=== PATIENT | female | born 1935 | race Caucasian/White ===

== ENCOUNTER 2020-12-16 14:10 | Inpatient (IN) | payer OTHER ==
--- NOTE | 2020-12-17 15:34 | R.PREADM ---
PRE-ADMISSION SCREENING FORM SCREENING DATE AND TIME 12/17/2020 14:31 (CDT) ANTICIPATED REHAB ADMISSION DATE 12/19/2020 REFERRING FACILITY [facility] REFERRAL DATE AND TIME 12/16/2020 12:41 (CDT) REFERRAL ROOM# J558 ACUTE ADMIT DATE 12/12/2020 Previous Rehabilitation(s): No. ACUTE COSMETIC ACCOUNT COORDINATOR/DC BRIDGE WELDER Felicita REFERRING PHYSICIAN Dr Vasquez REHAB FACILITY [facility] CLINICAL LIAISON Jorge A Navarro PHYSICIAN REVIEWER Dr. Eloy Blandon M.D. MR# [id number] NAME JEN HICKEY ADDRESS [address] [place] [address] PHONE [facility] [address] DATE OF 1935 AGE 85 SSN# [id number] GENDER female MARITAL STATUS RACE white PREF. LANGUAGE (IF NON-SWISS) Albanian ADMIT FROM 02 - [facility] PRE-HOSPITAL LIVING SETTING 01 - Home (private home/apt. board/care, assisted living, alf, transitional living) HOME TYPE AND DETAILS Type of home: single family house # of levels in the residence: 1 # of steps to enter the residence: 0 # of steps within the residence: 0 PRE-HOSPITAL LIVING WITH Alone FAMILY SUPPORT Yes PRIMARY FAMILY CONTACT NAME Bisi Valentine PRIMARY FAMILY CONTACT ALT. PHONE PRIMARY FAMILY CONTACT RELATIONSHIP Daughter IS PRIMARY FAMILY CONTACT AUTH. REP.? no 1ST EMERGENCY CONTACT Bisi Valentine 1ST CONTACT ALT. PHONE 1ST CONTACT RELATIONSHIP Daughter IS 1ST CONTACT AUTH. REP.? no PHONE 2ND CONTACT ON ADM.? no PATIENT EMPLOYMENT STATUS Retired (for age) PATIENT EMPLOYER No Employer PAYOR INFORMATION: 1ST PAYOR NAME [employer] 1ST PAYOR PHONE 1ST PAYOR 2ND PAYOR AUTHORIZATION# Medicare # 2ND PAYOR INJURY/ILLNESS DUE TO ACCIDENT? Yes ANOTHER REPUBLICAN RESPONSIBLE? 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 SUMMARY OF ACUTE HOSPITALIZATION: Pt. is a 85 yo Right-handed white female. On 12/12/2020 Pt. presented to [facility] with sudden onset of right-side weakness. On 12/12/2020 she was admitted to [facility] with diagnosis Traumatic subarachnoid hemm. with loss of consciousness . Her impairment category is Stroke 01 - Right Body (Left Brain) (01.2). Pre-morbidly, Pt. was independent/mod-I in Transfers Control, Locomotion, Self-Care, Social Cognition , Sphincter Control, and Communication; and she had good Balance and Safety Awareness. Currently, she has deficits of Transfers Control, Balance, Locomotion, Safety Awareness, Self-Care, a nd Social Cognition. Pt. is now referred to [facility] for acute in-patient rehabilitation in order to maximize patient's functional independence in activities of daily living, strength, ROM, and mobi lity. Patient has realistic goal of being discharged at assistance level 6-Raudel to reside at Home with Gino ozuna. PAST MEDICAL HISTORY mild dementia HTN melanoma of left periorbital region Hyponatremia hypocalcemia MEDICATION ALLERGIES: No Known Drug Allergies (NKDA) ENVIRONMENTAL ALLERGIES: None Known - Substance Allergies None Known - Other Allergies None Known CODE STATUS: DNR/DNI WEIGHT/HEIGHT/BMI: WEIGHT 114 lbs HEIGHT 5' 0" BMI 22.3 DIET: - Diet Type Regular - Diet - Solid Texture Regular - Diet - Liquid Texture Regular - Tube Feed N/A SKIN DIAGRAM: Abrasion on Face; extent - small; stage - NS(Not Stageable). Treatment - Per Physician's Orders. REVIEW OF SYSTEMS: - Gen Alert and awake Lying in bed No apparent distress Oriented to: person, time, and place - Vital Signs Vital signs stable, afebrile - CVS RRR VITAL SIGNS Temperature: 98.8 F SBP/DBP: 157/67 Pulse: 18 Resp: 98 Vital signs stable, afebrile MEDICATIONS/TREATMENT: Other- See attached MAR (Medication Administration Record). CURRENT SPHINCTER CONTROL: # of bladder accidents in the last 7 days prior to screenin # of bowel accidents in the last 7 days prior to screenin CURRENT LOCOMOTION STATUS: distance walked 200 feet DETAILED CURRENT FUNCTIONAL STATUS: - Walking score based on distance walked: 3(>=150ft) QI SCORES: - Self-Care A. Eating 04-Supervision or touching assistance B. Oral hygiene 04-Supervision or touching assistance C. Toileting hygiene 03-Partial/moderate assistance E. Shower/bathe self 02-Substantial/maximal assistance F. Upper body dressing 02-Substantial/maximal assistance G. Lower body dressing 01-Dependent H. Putting on/taking off footwear 01-Dependent - Mobility A. Roll left and right 03-Partial/moderate assistance B. Sit to lying 03-Partial/moderate assistance C. Lying to sitting on side of bed 03-Partial/moderate assistance D. Sit to stand 03-Partial/moderate assistance E. Chair/udl-cd-vlnjp transfer 03-Partial/moderate assistance F. Toilet transfer 03-Partial/moderate assistance G. Car transfer 88-Not attempted due to medical condition or safety concerns I. Walk 10 feet 04-Supervision or touching assistance J. Walk 50 feet with two turns 04-Supervision or touching assistance K. Walk 150 feet 04-Supervision or touching assistance L. Walking 10 feet on uneven surfaces 88-Not attempted due to medical condition or safety concerns M. 1 step (curb) 88-Not attempted due to medical condition or safety concerns N. 4 steps 88-Not attempted due to medical condition or safety concerns O. 12 steps 88-Not attempted due to medical condition or safety concerns P. Picking up object 88-Not attempted due to medical condition or safety concerns - Endurance Poor - Balance Poor - Safety Awareness Poor CURRENT FUNC. DEFICITS: Self-Care, Mobility, Endurance, Balance, and Safety Awareness HISTORY OF FALLS. HAS THE PATIENT HAD TWO OR MORE FALLS IN THE PAST YEAR OR ANY FALL WITH INJURY IN T HE PAST YEAR?: Yes PRIOR SURGERY. DID THE PATIENT HAVE MAJOR SURGERY DURING THE 100 DAYS PRIOR TO ADMISSION?: Yes THERAPY NOTES FROM ACUTE CARE: Ann.pdf SPECIAL NEEDS: - Safety Concerns Skin breakdown precautions needed due to skin breakdown risk PRECAUTIONS: - Weight Bearing Precaution WBAT left LE PATIENT NEEDS ACTIVE AND ONGOING THERAPEUTIC INTERVENTION OF MULTIPLE THERAPY DISCIPLINES, INCLUDING: - Occupational Therapy Cognitive Retraining. Visual Perceptual Training. - Dietary and Nutrition Adequate Nutrition. Nutritional Education. Nutritional Supplements. - Speech Therapy Cognitive Training. Expressive Language Skills. Memory Strategies. Receptive Language Skills. Speech Intelligibility Training. PATIENT NEEDS CLOSE MEDICAL SUPERVISION BY A REHABILITATION PHYSICIAN FOR: Coordination of Treatment Team Wound Care PATIENT REQUIRES 24X7 REHAB NURSING FOR MEDICAL AND FUNCTIONAL MGT. OF THE FOLLOWING DEFICITS: Disease Management Medication Management Patient/Family Education Providing Safe Environment Skin Integrity PATIENT REQUIRES INTENSIVE, COORDINATED INTERDISCIPLINARY APPROACH TO REHAB: Arranging Home Equipment/Services Discharge Planning Family Intervention/Training Flask Fitter/Case Management PATIENT REHAB POTENTIAL: Kadie ELI is able and expected to receive 3 hours of individualized therapy daily on at least 5 of every 7 days Kadie Ga prognosis for significant practical improvement within a reasonable period of shelly e appears Good Expected level of measurable improvement will be of a practical value to Kadie TOs function al capacity or adaptations to impairments Has a viable Discharge Plan Medically appropriate; condition is sufficiently stable to participate in intensive rehab program DISCHARGE PLAN: - Estimated Length of Stay (days) 12. - Consensus on plan Discharge plan has been discussed with primary caregiver. Primary caregiver is in agreement with the plan. - Planned Living Setting Upon Discharge Primary caregiver: Daughter. RECOMMENDED CARE LEVEL: IRF RECOMMENDATION DETAILS: Recommended Admission to Comprehensive Rehabilitation Program to Increase Functional [place] SCREENER'S COMPLETENESS CONFIRMATION: - Screening Confirmation The patient data collection on this preadmission screening form is finished PHYSICIANS REVIEW AND ADMISSION DETERMINATION Admit - Based on my review of the Pre-Admission Screening results, in my medical judgment and experie nce, I concur with the findings and recommend admission to [facility], as this patient requires an IRF level of care. SIGNATURE PANEL: Body Masker - [electronically] signed by Cece Byers Hand Rug Braider on 12/17/2020 at 14:59 (CD T) Body Masker - [electronically] signed by Zach Navarro PT on 12/17/2020 at 15:05 (CDT) Physician Reviewer - [electronically] signed by Dr. Eloy Blandon M.D. on 12/17/2020 at 15:33 (CDT )
--- OUTSIDE RECORDS SUMMARY | 2020-12-17 18:03 | XMS REPORT | Continuity of Care Document ---
:1935 Author Organization [facility] t Address [address] [place] [address] Care Team Providers Name Role Phone TONO Primary Care Physician Unavailable SYSTEM, NOT IN Attending Clinician Unavailable Cristopher AGUILAR Attending Clinician CRISTOPHER Attending Clinician Unavailable Fiona AGUILAR Attending Clinician FIONA Attending Clinician Unavailable Damian STEVENS Attending Clinician DAMIAN Attending Clinician Unavailable Tono AGUILAR Attending Clinician TONO Attending Clinician Unavailable Dominique Laguna MD Attending Clinician Darrel Justin CRNA Attending Clinician Ciro AGUILAR Attending Clinician Jimmy Attending Clinician Unavailable Manoj Rouse, K Attending Clinician Unavailable Felipe AGUILAR Attending Clinician Herbie Gomez MA Attending Clinician Unavailable Tania AGUILAR, Q Attending Clinician Burak BRNACH Attending Clinician Unavailable Parisa Handley Attending Clinician Kathy VINCENT, G Attending Clinician Unavailable Brandi Larsen MD Attending Clinician Gregory Briggs MD Attending Clinician Ifeoma AGUILAR Attending Clinician Tu Deleon, M Attending Clinician TONO Admitting Clinician Unavailable Payers Payer Name Policy Type Policy Effective Date Expiration Date Sour ce Number [facility] [id number] 2020 MD Buenrostro rson MEDICARE 00:00:00 [facility] MEDICARE [id number] 2020-PresentMe dicare Problems Condition Condition Condition Status Onset Resolution Last Treating Co mments Source Name Details Category Date Date Treatment Clinician Date Malignant Malignant Disease Active Overview: melanoma melanoma 3-03 Added Hernan o of left of left 00:00: automatic n upper upper 00 ally from eyelid, eyelid, request including including for canthus canthus surgery [id number] Hyperlipid Hyperlipid Problem Active [facility] Dementia Dementia Problem Active [facility] Essential Essential Problem Active [facility] hypertensi Hypertensi da on on Medical Group Subarachno Subarachno Problem Active [facility] id id da hemorrhage Hemorrhage Me dical Group Upper Upper Problem Active [facility] respirator Respirator da y y Medical infection Infection Grou p Seasonal Seasonal Problem Active [facility] allergic Allergic da rhinitis Rhinitis Medica l Group Bronchitis Bronchitis Problem Active [facility] Gastroente Gastroente Problem Active [facility] r[facility] r[facility] Dizziness Dizziness Problem Active [facility] Fatigue Fatigue Problem Active [facility] Paresthesi Paresthesi Problem Active [facility] Diarrhea Diarrhea Problem Active [facility] Magnetic Magnetic Problem Active [facility] resonance Resonance da imaging of Imaging of Me dical brain Brain Group abnormal Abnormal Allergies, Adverse Reactions, Alerts Allergy Allergy Status Severity Reaction(s) Onset Inactive Treating Comm ents Source Name Type Date Date Clinician Codeine Allergy Active [facility] Meclizin Allergy Active [facility] PENICILL Allergy Active [facility] Family History Family Member Diagnosis Comments Start Date Stop Date Source Natural mother Stroke MD Georgiana fernando Family member Diabetes MD Casper Family member Glaucoma MD Casper Family member Macular degeneration Darrel Casper Social History Social Habit Start Date Stop Date Quantity Comments Source Sex Assigned At F MD Casper Exposure to Not sure MD Casper SARS-CoV-2 (event) Tobacco use and 2020-11-22 2020-11-22 Never used MD Becerra on exposure 00:00:00 00:00:00 History SDOH 2020-10-29 2020-10-29 17 MD Casper Education 00:00:00 00:00:00 Smoking Status Start Date Stop Date Source Never smoker MD Casper Medications Ordered Filled Start Stop Current Ordering Indication Dosage Frequency Signature Comments Components Source Medication Medication Date Date Medication? Clinician (SIG) Name Name pravastatin Yes justus AGUILAR (PRAVACHOL) 12-03 n 20 mg Lex so 20 mg 15:11: tablet n tablet 16 imiquimod Yes Melanoma in 1{packe Apply 1 (Aldara) 5% 12-03 situ of t} packet And erso cream 00:00: left lower topically n 00 eyelid, to including affected canthus area(s) at bedtime. montelukast Yes 10mg 10 mg. (SINGULAIR) 11-02 Anderso 10 mg 00:01: n tablet 19 cetirizine Yes 10mg Take 10 mg M D (ZyrTEC) 10 11-02 by mouth. And erso mg tablet 00:01: n 19 cholecalcif Yes Vitamin D3 marcel, 11-02 Anderso vitamin D3, 00:01: n (Vitamin 19 D3) 10 mcg (400 unit) cap ascorbic Yes Acid 11-02 Anderso (Vitamin C) 00:01: n 500 mg cpER 19 meloxicam Yes 15 mg TbDL 11-02 Anderso 00:01: n 19 potassium Yes chloride in 11-02 Anderso 0.9%NaCl 10 00:01: n mEq/100 mL 19 pgbk clindamycin 2020- No Malignant 300mg Take 1 MD (Cleocin 10-31 03-19 melanoma of capsule Anderso HCL) 300 mg 00:00: 04:59 left upper (300 mg) n capsule 00 :00 eyelid, by mouth 3 including (three) canthus times a day for 7 days. lisinopril 2021-0 Yes 10mg 10 mg. MD (PRINIVIL,Z 2-19 Anderso ESTRIL) 10 00:00: n mg tablet 00 sertraline Yes 50mg 50 mg. MD (ZOLOFT) 50 2-05 Anderso mg tablet 00:00: n 00 memantine Yes TAKE 1 MD (NAMENDA 1-29 CAPSULE BY Lex so XR) 28 mg 00:00: MOUTH n 24 hr 00 EVERY DAY capsule furosemide 2019-08 Yes 40mg 40 mg. (LASIX) 40 2-22 Anderso mg tablet 00:00: n 00 donepezil 2019-08 Yes 10mg 10 mg MD (ARICEPT) 2-15 daily. Anderso 10 mg 00:00: n tablet 00 potassium potassium No potassium [facility] chloride ER chloride ER chloride da 10 mEq 10 mEq ER 10 mEq Medica l capsule,ext capsule,ext capsule,ex Group ended ended tended release release release TAKE 1 TAKE 1 TAKE 1 CAPSULE BY CAPSULE BY CAPSULE BY MOUTH EVERY MOUTH EVERY MOUTH DAY DAY EVERY DAY pravastatin pravastatin No pravastati [facility] 40 mg 40 mg n 40 mg da tablet TAKE tablet TAKE tablet Medical 1 TABLET 1 TABLET TAKE 1 Group DAILY DAILY TABLET DAILY sertraline sertraline No sertraline [facility] 50 mg 50 mg 50 mg da tablet Take tablet Take tablet Medical 1.5 tablets 1.5 tablets Take 1.5 Group every day every day tablets by oral by oral every day route for route for by oral 90 days. 90 days. route for 90 days. Vitamin C Vitamin C No Vitamin C [facility] Vitamin D3 Vitamin D3 No Vitamin D3 [facility] donepezil donepezil No donepezil [facility] 10 mg 10 mg 10 mg da tablet Take tablet Take tablet Medical 1 tablet 1 tablet Take 1 Group every day every day tablet by oral by oral every day route. route. by oral route. furosemide furosemide No furosemide [facility] 40 mg 40 mg 40 mg da tablet TAKE tablet TAKE tablet Medical 1 TABLET BY 1 TABLET BY TAKE 1 Group MOUTH EVERY MOUTH EVERY TABLET BY DAY DAY MOUTH EVERY DAY hydrochloro hydrochloro No hydrochlor [facility] thiazide thiazide othiazide da 12.5 mg 12.5 mg 12.5 mg Medica l capsule capsule capsule Group TAKE 1 TAKE 1 TAKE 1 CAPSULE CAPSULE CAPSULE DAILY DAILY DAILY lisinopril lisinopril No lisinopril [facility] 10 mg 10 mg 10 mg da tablet TAKE tablet TAKE tablet Medical 1 TABLET BY 1 TABLET BY TAKE 1 Group MOUTH EVERY MOUTH EVERY TABLET BY DAY DAY MOUTH EVERY DAY magnesium magnesium No magnesium [facility] 400 mg (as 400 mg (as 400 mg (as da magnesium magnesium magnesium Medical oxide) oxide) oxide) Group capsule capsule capsule Take by Take by Take by oral route. oral route. oral route. melatonin melatonin No melatonin [facility] meloxicam meloxicam No meloxicam [facility] 15 mg 15 mg 15 mg da tablet TAKE tablet TAKE tablet Medical 1 TABLET BY 1 TABLET BY TAKE 1 Group MOUTH EVERY MOUTH EVERY TABLET BY DAY DAY MOUTH EVERY DAY memantine memantine No memantine [facility] 28 mg 28 mg 28 mg da capsule capsule capsule Medica l sprinkle,ex sprinkle,ex sprinkle,e Group tended tended xtended release release release 24hr TAKE 1 24hr TAKE 1 24hr TAKE CAPSULE BY CAPSULE BY 1 CAPSULE MOUTH EVERY MOUTH EVERY BY MOUTH DAY DAY EVERY DAY montelukast montelukast No montelukas [facility] 10 mg 10 mg t 10 mg da tablet TAKE tablet TAKE tablet Medical 1 TABLET BY 1 TABLET BY TAKE 1 Group MOUTH EVERY MOUTH EVERY TABLET BY DAY DAY MOUTH NEEDED NEEDED EVERY DAY NEEDED Immunizations Ordered Immunization Filled Immunization Date Status Commen ts Source Name Name [facility] SARS-CoV-2 2020-10-19 Completed MD Buenrostro rson Vaccination 00:00:00 [facility] SARS-CoV-2 2020-09-21 Completed MD Buenrostro rson Vaccination 00:00:00 pneumococcal pneumococcal 2020-05-30 Completed [facility] conjugate PCV 13 conjugate PCV 13 00:00:00 Tn dical Group influenza, influenza, 2020-05-30 Completed [facility] injectable, injectable, 00:00:00 [facility] Grou p quadrivalent quadrivalent Td (adult) Td (adult) 2020-04-25 Completed [facility] preservative free preservative free 15:31:00 Medical Group influenza, high dose influenza, high dose 2019-06-01 Completed [facility] seasonal seasonal 00:00:00 Medical Group pneumococcal pneumococcal 2019-06-01 Completed [facility] polysaccharide PPV23 polysaccharide PPV23 00:00:00 Medical Group influenza, high dose influenza, high dose 2016-05-14 Completed [facility] seasonal seasonal 11:55:00 Medical Group pneumococcal pneumococcal 2015-10-16 Completed [facility] conjugate PCV 13 conjugate PCV 13 00:00:00 Tn dical Group influenza, high dose influenza, high dose 2015-07-23 Completed [facility] seasonal seasonal 00:00:00 Medical Group influenza, influenza, 2013-08-23 Completed [facility] injectable, injectable, 00:00:00 Medical Grou p quadrivalent quadrivalent influenza, seasonal, influenza, seasonal, 2013-06-08 Completed [facility] injectable injectable 18:39:17 Medical Group pneumococcal, pneumococcal, 2010-08-23 Completed [facility] unspecified unspecified 00:00:00 Medical Grou p formulation formulation zoster live zoster live 2008-08-23 Completed [facility] 00:00:00 [facility] Vital Signs Vital Name Observation Time Observation Value Comments Source WEIGHT 2020-10-31 05:54:00 56.3 kg WEIGHT 2020-10-31 05:54:00 56.3 kg HEIGHT 2020-10-22 09:00:00 157 cm WEIGHT 2020-10-22 09:00:00 57 kg HEIGHT 2020-10-22 09:00:00 157 cm WEIGHT 2020-10-22 09:00:00 57 kg BP Diastolic 2020-09-09 00:00:00 62 mm[Hg] [facility] Height 2020-09-09 00:00:00 66 [in_i] [facility] BMI (Body Mass 2020-09-09 00:00:00 20 kg/m2 [facility] Medical Index) Group BP Systolic 2020-09-09 00:00:00 122 mm[Hg] [facility] Body Weight 2020-09-09 00:00:00 1984 [oz_av] [facility] BP Diastolic 2020-04-25 00:00:00 75 mm[Hg] [facility] Height 2020-04-25 00:00:00 66 [in_i] [facility] BMI (Body Mass 2020-04-25 00:00:00 22.3 kg/m2 [facility] Medical Index) Group BP Systolic 2020-04-25 00:00:00 158 mm[Hg] [facility] Body Weight 2020-04-25 00:00:00 2208 [oz_av] [facility] BP Diastolic 2019-10-23 00:00:00 75 mm[Hg] [facility] Height 2019-10-23 00:00:00 66 [in_i] [facility] BMI (Body Mass 2019-10-23 00:00:00 25.2 kg/m2 [facility]) Group BP Systolic 2019-10-23 00:00:00 160 mm[Hg] [facility] Body Weight 2019-10-23 00:00:00 2502 [oz_av] [facility] Systolic blood 2020-12-03 15:01:35 123 mm[Hg] pressure Diastolic blood 2020-12-03 15:01:35 73 mm[Hg] MD Johnston derson pressure Heart rate 2020-12-03 15:01:35 87 /min MD Lex yan Body temperature 2020-12-03 15:01:35 37.11 Judith MD Lit hollowayrson Respiratory rate 2020-12-03 15:01:35 18 /min MD Murrieta nderson Oxygen saturation in 2020-12-03 15:01:35 96 /min MD Casper Arterial blood by Pulse oximetry Body weight 2020-11-20 14:13:00 57 kg MD Lex yan BMI 2020-11-20 14:13:00 23.12 kg/m2 MD Lex yan Body height 2020-10-22 15:00:00 157 cm MD Lex yan Procedures Procedure Date / Time Performing Clinician Source Performed CT HEAD W WO CONTRAST 2020-11-22 19:00:15 Poli Salgado MD And mayelinon MRI BRAIN W WO CONTRAST 2020-11-20 16:23:07 Poli Salgado MD nderson CT CHEST ABDOMEN PELVIS W 2020-11-20 13:06:00 Poli Salgado MD WO CONTRAST COMPLEX REPAIR OF 2020-11-01 18:04:00 Francine Power MD Andmayelino n EYELID(S) REPAIR OF ECTROPION 2020-11-01 18:04:00 Francine Power MD Lex son PATHOLOGY SURGICAL 2020-10-31 13:51:00 Francine Power MD Hernan on INTERPRETATION EXCISION OF MALIGNANT 2020-10-31 12:28:00 Francine Power MD And erson LESION OF EYELID(S) COVID-19 (SARS-COV-2) 2020-10-29 17:33:00 Francine Power MD And erson PCR-ASYMPTOMATIC MC PROTHROMBIN TIME 2020-10-29 17:06:00 Poli Salgado MD FREE THYROXINE 2020-10-29 17:06:00 Poli Salgado MD THYROID STIMULATING 2020-10-29 17:06:00 Poli Salgado MD Lex son HORMONE MAGNESIUM LEVEL 2020-10-29 17:06:00 Poli Salgado MD HEMOGLOBIN A1C 2020-10-29 17:06:00 Poli Salgado MD GLUCOSE, RANDOM 2020-10-29 17:06:00 Poli Salgado MD ELECTROLYTE PANEL 2020-10-29 17:06:00 Poli Salgado MD Anderso n SERUM CREATININE 2020-10-29 17:06:00 Poli Salgado MD COMPLETE BLOOD COUNT W/ 2020-10-29 17:06:00 Poli Salgado MD nderson DIFFERENTIAL BLOOD UREA NITROGEN 2020-10-29 17:06:00 Poli Salgado MD Lex son PHOSPHORUS LEVEL 2020-10-29 17:06:00 Poli Salgado MD TYPE AND SCREEN 2020-10-29 17:06:00 Poli Salgado MD SERUM CREATININE 2020-10-29 17:06:00 Poli Salgado MD .GLOMERULAR FILTRATION 2020-10-29 17:06:00 Poli Salgado MD derson RATE Results CBC 2020-10-29 17:06:00 Poli Salgado MD MANUAL DIFFERENTIAL 2020-10-29 17:06:00 Poli Salgado MD Lex son ABORH 2020-10-29 17:06:00 Poli Salgado MD ANTIBODY SCREEN 2020-10-29 17:06:00 Poli Salgado MD TMP INTERPRETATION 2020-10-29 17:06:00 Poli Salgado MD on ANTIBODY SCREEN NEGATIVE CLOT EXPIRATION DATE 2020-10-29 17:06:00 Poli Salgado MD Porter rson CONFIRM ABORH TYPE 2020-10-29 17:04:00 Poli Salgado MD on XR CHEST 2 VW 2020-10-29 16:25:51 Poli Salgado MD EKG, 12-LEAD (SCHEDULED) 2020-10-29 00:00:00 Poli Salgado MD US HEAD NECK SOFT TISSUE 2020-10-22 20:13:53 Poli Salgado MD HC 2019-NCOV COVID-19 2020-10-18 21:16:00 Francine Power MD And erson PATHOLOGY OUTSIDE 2020-09-17 00:00:00 Zach Briggs MD An derson INTERPRETATION MAMMO, screening, 2019-10-23 00:00:00 [facility] digital, bilateral Group unlisted imaging order 2019-10-23 00:00:00 [facility] Colonoscopy 2008-08-23 00:00:00 [facility] Other 2007-08-23 00:00:00 [facility] Other 2000-08-23 00:00:00 [facility] Plan of Care Planned Activity Planned Date Details Comments Source Diagnostic Test Pending 2020-09-09 CMP, serum or [facility] 00:00:00 plasma [code = Group CMP, serum or plasma] Diagnostic Test Pending 2020-09-09 CBC w/ auto diff [facility] 00:00:00 [code = CBC w/ Group auto diff] Diagnostic Test Pending 2020-09-09 TSH + free T4, [facility] 00:00:00 serum [code = TSH Group + free T4, serum] Diagnostic Test Pending 2020-09-09 urinalysis, [facility] 00:00:00 reflex culture Group [code = urinalysis, reflex culture] Instructions [facility] Encounters Start End Encounter Admission Attending Care Care Encounter Source Date/Time Date/Time Type Type Clinicians Facility Department ID 2020-10-04 Outpatient FRANCIS HAMMER MDA [id number] 15:35:39 PROVIDER Hernan fernando 2020-12-03 2020-12-03 Outpatient TAVARES HANKS MDA, MDA [id number] 09:51:43 11:42:11 Hernanmayelin fernando 2020-12-03 2020-12-03 Outpatient SUNDAR JAIMES, MDA MDA [id number] MD 10:49:44 11:38:22 MESFIN Bragaers o n 2020-11-22 2020-11-22 Outpatient SUNDAR SALGADO, MDA MDA [id number] 13:13:18 13:13:18 POLI Hernan o n 2020-11-20 2020-11-20 Outpatient SUNDAR POWER, MDA MDA [id number] 11:30:00 23:59:00 FRANCINE Hernan o n 2020-11-20 2020-11-20 Outpatient SUNDAR SALGADO, MDA MDA [id number] 06:00:00 11:29:00 POLI Bragaers o n 2020-11-20 2020-11-20 Outpatient SUNDAR SALGADO, MDA MDA [id number] 08:16:49 08:16:49 POLI Hernan o n 2020-11-06 2020-11-06 Outpatient SUNDAR POWER, MDA MDA [id number] 11:36:12 23:59:00 FRANCINE Hernan o n 2020-11-01 2020-11-01 Outpatient SUNDAR POWER, MDA Plastic [id number] 08:57:00 18:00:00 FRANCINE Surg Hernan o n 2020-10-31 2020-10-31 Outpatient SUNDAR POWER, MDA Plastic [id number] 05:26:00 10:08:00 FRANCINE Surg Hernan o n 2020-10-29 2020-10-29 Outpatient SUNDAR SALGADO, MDA MDA [id number] 10:30:00 23:59:00 POLI Hernan o n 2020-10-29 2020-10-29 Outpatient SUNDAR SALGADO, MDA MDA [id number] MD 11:43:53 16:04:37 POLI Hernan o n 2020-10-29 2020-10-29 Outpatient SUNDAR SALGADO, MDA MDA [id number] MD 11:43:35 16:03:20 POLI Hernan o n 2020-10-29 2020-10-29 Outpatient SUNDAR SALGADO, MDA MDA [id number] 11:22:14 11:34:02 POLI Hernan o n 2020-10-29 2020-10-29 Outpatient SUNDAR SALGADO MDA MDA [id number] 10:00:00 10:29:00 POLI fernando 2020-10-29 2020-10-29 Outpatient SUNDAR SALGADO MDA MDA [id number] 09:45:00 09:59:00 POLI fernando 2020-10-22 2020-10-23 Outpatient SUNDAR MDA MDA [id number] 09:42:46 09:11:10 Hernan fernando 2020-10-22 2020-10-22 Outpatient SUNDAR POWER MDA MDA [id number] 09:50:23 23:59:00 FRANCINE fernando 2020-10-22 2020-10-22 Outpatient SUNDAR SALGADO MDA MDA [id number] 13:26:44 13:26:44 POLI fernando 2020-10-18 2020-10-18 Outpatient SUNDAR POWER MDA MDA [id number] 14:43:53 15:18:48 FRANCINE fernando 2020-09-27 2020-09-27 Office Bita Dia BC [id number] 11:01:18 11:46:18 Visit AMBULATOR [id number] Y [id number] 2020-09-13 2020-09-13 Office Tu BCDarrel [id number] 08:24:55 12:04:35 Visit Luma Rojo AMBULATOR [id number] Y [id number] 2020-09-09 2020-09-09 January [place] - [id number] M [facility] 00:00:00 00:00:00 Discovery khalif Garcia EMERGENCY SERVICE RESTORER: [address] [facility] [address] [place] [address] , Ph. 2020-04-25 2020-04-25 January J[place]ES [place] - [id number] M [facility] 00:00:00 00:00:00 Discovery khalif Garcia EMERGENCY SERVICE RESTORER: [address] [facility] [address], [facility] [place] [address] , Ph. 2019-10-23 2019-10-23 January [place] - [id number] M [facility] 00:00:00 00:00:00 Discovery khalif Garcia EMERGENCY SERVICE RESTORER: [address] [facility] [place] - [address], [facility] [place] [address] , Ph. Results Test Description Test Time Test Comments Results Result [facility] e Comments CT Head with and 1. Right temporal MD Casper without Contrast 3 bone exostosis versus 17:09:51 less likely calcified meningioma with local mass effect upon the right temporal lobe. There is hyperostosis frontalis interna with a similar calcified focus projecting medially from the left temporoparietal calvarium with local mass effect.2. No evidence of intracranial metastases. Interface, Radiology Results In - 11/23/2020 12:12 PM CDTFULL RESULT:EXAMINATION: CT HEAD W WO CONTRAST on 11/22/2020 2:00 PMHISTORY: Metastatic malignant melanomaINDICATION: Not for stroke, trauma, headache, sinusitis, or syncope, Initial stagingCOMPARISON: MRI brain without and with contrast 11/20/2020TECHNIQUE: CT scan of the brain was performed without and with intravenous contrast as per departmental protocol. FINDINGS: An approximately 3.7 x 1.3 cm calcified focus medially off of the right temporal bone. This corresponds to the signal change seen on the prior MR examination. There is mass effect upon the adjacent right temporal lobe. Note is made of hyperostosis frontalis interna. A 2.1 cm calcific density medially from the left temporal bone with mild mass effect upon the adjacent left temporal parietal bone with adjacent local mass effect. No effacement of the basal cisterns. There is no evidence for abnormal enhancement.The cartagena-white matter differentiation is maintained. There is no evidence for intra-axial or extra-axial hemorrhage. There is no evidence for hydrocephalus. There is no large acute territorial infarction.IMPRESSION :1. Right temporal bone exostosis versus less likely calcified meningioma with local mass effect upon the right temporal lobe. There is hyperostosis frontalis interna with a similar calcified focus projecting medially from the left temporoparietal calvarium with local mass effect.2. No evidence of intracranial metastases. MRI Brain with 2020-10-23 Evaluation is limited MD Casper and without 1 by motion as Contrast 18:33:52 delineated above.1. Extra-axial lesion lesion in the middle cranial fossa is favored to reflect a subacute hemorrhage. The possibility of dural based tumor is not entirely excluded. Correlation with CT is recommended. 2. No definitive parenchymal metastasis identified. Findings were discussed with Poli Salgado at 1333 hours 11/20/2020 Interface, Radiology Results In - 11/20/2020 1:36 PM CDTFULL RESULT:EXAMINATION: MRI BRAIN W WO CONTRAST on 11/20/2020 11:23 AMHISTORY: Malignant melanoma of left upper eyelid, including canthusINDICATION: 85 year old with recurrent melanoma left eye/primary second toe on left footCOMPARISON: NoneTECHNIQUE: Multi-sequence MRI of the brain without and with intravenous contrast as per standard departmental protocol.FINDINGS: Evaluation is limited by motion, limiting evaluation for small lesions. Portions of the very lateral left skull not included due to patient motion during the exam. No T2* or 2D T1 post contrast obtained due to the patients difficulty completing study. INTRACRANIAL: There is an extra-axial intrinsically T1 hyperintense, with peripheral rim of T1 hypointensity and mixed T2 signal lesion along the right temporal lobe. No definitive superimposed enhancement is seen. The lesion measures 1.6 x 3.4 cm (image 60/series 18). No edema of the adjacent bran parenchyma. No definitive calvarial signal abnormalityThere is no abnormal parenchymal or leptomeningeal enhancement.Patchy T2/FLAIR signal hyperintensity in supratentorial white matter and brainstem is seen, likely reflective chronic small vessel ischemic change. There is no evidence of acute infarction, new hemorrhage, or hydrocephalus. The visualized major intracranial vascular flow voids are unremarkable.EXTRA-CR ANIAL SOFT TISSUES: The osseous structures and extra-cranial soft tissues are unremarkable.ORBITS: The orbital structures unremarkable.SINUSES: The paranasal sinuses and mastoid air cells are clear.IMPRESSION:Eval uation is limited by motion as delineated above.1. Extra-axial lesion lesion in the middle cranial fossa is favored to reflect a subacute hemorrhage. The possibility of dural based tumor is not entirely excluded. Correlation with CT is recommended. 2. No definitive parenchymal metastasis identified.Findings were discussed with Poli Salgado at 1333 hours 11/20/2020 CT Chest Abdomen 2020-10-23 1. Nonspecific NC [place] Pelvis with and 1 solitary 5 mm soft without Contrast 13:35:03 tissue lung nodule, left lower lobe. 2. No evidence for metastatic disease in the abdomen or pelvis. 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 Initial staging for metastatic disease; M.D. [place] Baseline imaging.Comparison: NoneTechnique: CT of the abdomen was performed without intravenous contrast followed by CT of the chest, abdomen, and pelvis with intravenous contrast.Findings: CHEST:On image 87 of series 6, there is a nonspecific 5 mm soft tissue lung nodule in the anterior basal segment of the left lower lobe.No other lung nodules are present.Biapical parenchymal scarring is seen.No axillary, mediastinal or hilar adenopathy is seen.The thyroid gland is asymmetrically enlarged, left greater than right, with multiple variable sized nodules and consistent with an asymmetric nodular goiter.A small hiatal hernia is seen.`Multilevel degenerative-like bone changes are present.ABDOMEN and PELVIS:The liver, spleen, pancreas and adrenal glands appear normal.The gallbladder contains a density gradient with sub-5 mm low dense filling defects. 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 No evidence for acute cholecystitis is present.The kidneys demonstrate function without mass or hydronephrosis. The left urinary collecting system is duplicated which is a normal variant.No adenopathy or ascites are seen in the abdomen or pelvis.The uterus and ovaries are appropriate for age.Pandiverticulosis is present with predominance in the sigmoid colon.Multilevel degenerative-like bone changes are present.IMPRESSION:1. Nonspecific solitary 5 mm soft tissue lung nodule, left lower lobe.2. No evidence for metastatic disease in the abdomen or pelvis. Pathology Surgical Interpretation 2020-11-02 00:44:00 Test Item Value Reference Range Interpretation Comme nts Addendum l5oeqEFlGIPglCY0JeNzCZDfz3ymq1FqeCTfvSBvOYkmvXLnuoWnun94pGQ4gX15QX6fAWXnIbY0TGSk faP4Rxn9UZApRFWjeGZtA589e8anc6eougLecVY8fWcoVGQoBZGkEVvpTECoWpSzCRynICPtw1Qgs7Ib KQYkr6A5m9SeYKU2iAKjZUDhBjZMf87lDOnsWeWVosV 1 (test waKAehH3ttaBUHATvBEOjrJ6eDRCkTGZon8JeiNh5OGDjd6RjzEFkAX0vdVZvtM7dz3o5pAQjosErzhW ePVYjyiAhSy8lQNiudwQmgUYqYF0zhKFlt66mQuioMUY4 code = 37) Diagnosis p5fubAJhSHImfFS2BgYqXMNcs1qkk0EtoJJpmIAtDXuciPOkpcPqtg10wHY7aN54HU3mUPClKsT0QTKv xuF3Lmo0URHuNKWvbDRpS821v7qqq2twmmUdxCO0fFiiPAGdXJFqUKzsVOQjFjZxLJpwLOwsVGDyKZR4 YTrqrDLxFAmiB2LhzDd3ignke1sopxImxGuoxHOxNau (test jLBJskKj8XmEfoBgbAoDcRXAPXV8fBG2GDFLYXnXvBCyOQ6WZEXLLT7DFTIpWIjQPMWJTGTXQVIIkGJ1 CFA0MUWRVQ57RZVdXOKXVOCXmTOcNCdZKJ29iEMROFBbDRIUDJFFOCFXYXMVEOeHJXZVQIVUXAGocJoA AJ1yLSwUWFZwMO97TZ3NhTF8iJEJFQRuuTLPEH9FTGE code = GKBPFLUOARTPvZLjUTEJiSIyRZXyjSLnqmAWAFW9vFOMeVGJErKv0ASYDRNYTELGZIBDIJYcOHA6TeRo nuGPLycUwnWNuwwoBxbKAzPLN1OHZ0HWcppWHnwCM6UP0xx2ShlREukgLlIVMmw6fhUhocKQXjlIe3Pd FzwLnoLiAbUR0HWSNJE78MOTjPNGAXCCStROaOHeWKW 34) 24hYTCOFOnLZTKQIJKIFDIKKWKQMcVcWXPgPDfXJ8ZPFYWVD4ZYUniuKRAmxGjaJMlnikLgyEGeWQU4Y JNnIGKlVIVhTHQ8HNjxrPZmEQleYWFvaQ89CNHolkpcpGshPXhamV01WmGkQFBRCI1MXGLpLT7dK3qVP EdiLUTOINyQBcQERRoQG09AVSWBCJKqNELAM3ISLBNZ DNQOGFBNRFAhVQUGNEHtUDDibfknpRKjuJdgFBnvYNQdZMgkQ2vtOWyyLBtoThFtT3LttGEjaGwpy9ng jyvzjFNbYWdfPeOrTClrmsryJRVDSJyFYs0QPKOJUaZQHNSRWFRMWY4LSBgTTN6DAPeXPqCpMJvHMOhm QUxTTyBJTlZPTFZJTkcgQSBMQVJHRSBIQUlSIEZPTEx HG3fSVJPCAoRKVC3DXXLXYZPFA0NBUSGXPImPUm3vaWVzSExdHZmjdC5yLDTuzsWTCgKZfRSdBFagLiM woJLhgREfIVAvvjAqnFBtRXPyhX23SHEuszyoxFuoOYhxoS31QqMuOBZEXJ4RCSUtBJ2mY3lXSNwiSYG GSXuBGpNEZShVW37LEVSHHZVfYHPCX2XKZCQJTPRHCX MVYMHrQZYCTASiKXZsueercEVbgWhqOVehYFSzRrrtMVnbARImJKI5MBftsPFlQYkwtwHnCKrmoKRwnC NpDHAztMZuFNZvyE53ECDyiecyvEluZEcpmT87LzTfA1rNHqYCWUAQHSNLFMDLGZGXZBJVDwWBZTAULH WIUc3RDVITPYpBAm5PJXODA9coJZWthXniQWiswqEax FNhJKw2SAT3SAzyjCTleYNwAVIaxODlSOXyOFbcVh5uIZiyvFHcnKNjSRDcv3ucRqxhZABjkAz0BeTyy JsdYtMzQY4HIVSCF15YLNiRSRSZAGRvJKsKIsMTF27jVLYJHIbIORWOACADOGUGRDPVKuNwHGEmNDuXY 5TMRXCVF8MYLwtvSEGrsTHtMDgnRXT3 Comment e8ijwXSbGYBdmAS4QsMiNDHgd2fmx0WalFIxwYSwBWzvkNAvhaOwfa61uZZ6oZ90YA0lDVTeNkC0SJOl geT9Hrb8AFUwPWGgaBFzQ993c1lli5rhanOugGG1bEdbQKKwHHRqTFloEZPeJfCfH8HfB8agDR9fOLLe bDyso4FoyIKNDZYjr3vwMWbfYgVsHU25KIUuK5JfXJH (test yz8NnyCUyAG6eK5k7qUXzxUZouNsqDPZcpCmuuwklGvRxqqkokU1sgEUwbc4mzD7efpHdjR9qu6EaF9x lTW4bGNsbQNX4 code = 9835) Gross o4ribARxHVQvgYSNNXDuILkqvzIwXBFfnKXrG2JrlskhOTkdLM8tIQ3lyMwvaGYalAWgCL1CJWCdTgMw TYVpzAVthxWpFeLeMJJhsRDowEE7BICpCZ0hpnntSPihLNbdPHUxdwL6OTPdxUTfQ1LnOHFjSL4tqitr RMT3LCmufV6fjbCQXiarOs7mqQWzvBbkVkFkJfEcUCI Descripti sWBHqHOJyoRzzCGXbVZi0nM4OMbvhNXI2PTFKMgyvAPCwUA4Sb4glBMOqjAXcDHR8FQfrlIIrOMTfPBW gSIz0KEPuGZpjvGFpSM2baZnyDccbbCsbe5KafPByPRycILLzFHImUYofWKCrIZ0LNdYkRIQxPVunDKS eZAn2SMh3YI0SPlOcIJGcIAc7VdHfKnVyFVo3PLozVN on (test 4ZFPQ2NTQuCAE6EJC4OLvsYpYvKQUcXdQrPYJqKCEnXHsdOHxudsNaFKHhCDJlMRdbTbicBLesW20hyD ujjU8bNxinxmTzIFL5XHSwohGOEtxqdZTdkooesYswBhRmrKDlBgFxDNxeeJNyjVNeOHxjjuXytwhyXA FRQpzbeIAyeUexPWBrEjQxLYfwSIVfDSG8VFDrTNS1e code = lBlvmQzeFIdSS7fiZKvsNCkvINcZIVtgdTkVZVpyqDttKItYG2zLE3lBIK5HhcgWFDpH9HlA9raUM4iP 76ep4xrmKYke3QzOS8nj0XbXV17VVLscNRxFCx7oSJzpAsxp1triVBcFYOmU55mghTds5LmfEZcXPfhk XEcGLJscX7iu9x3zSF5yoMpauq3hF4lMBJ9SbM9wYFn 173023332 NQ43khC1wDNgqDWipVCvx6BnpM5tBKSxMRXwuWKgwCMwxtmhqpK3quDndsNmnxxkldnfYs9zPDNkZT3v LDswwIV1fwQqBOXwwfJjGKToVwPjP77jy6qysqKeiKIwGJSvKWIpHILrMQLoMWFZwUCck8KqJ6koIX7f gHTxz6UmLU20TEMoInfenSlcNDU1fjymk51jST7pUNJ 1) [file] zdMYkRCkkAuKnVmzuCYDjE3RaK0BpdzC8HBa3 Disclaime j3hnzFNaBCTkiQEqJxJyTXCxBIOng7oyHMCgbKFcPePiNqKmFxCjEzvbgSZeZGQfQwHif2ivp822gWPz q0fuCWOcSrO7tBAuQVJjvOWfB885NXBlCDkzk2icd3LpGZGciYXlc1C0ERLTqhsagFj6vBrzY72xe3V8 RvttH6htQOLpXYOaQ7UgJF8kXZAsDgn0CGE3JRL3BDM r (test sXDKvP7BjPY2nLCHzkPZhXDk1g4qvcJguYYDnGZE2e4seRRqokbUpLX0gmv4xmCi0a6pcdvYzUHNwYCV gmONQVUHdB7FrkRxuSt9eyJd8bXhpNgrpGOX5Dux3MS5tbn36ikq2lKzfPKOikszdFoH6AXkoWZScrcd jYLu6YGbvFNDzfFQ6ENLirGHeG0MrWLFiPW0qaif6GO code = M3SErvBLAtUnF3WNPqpGCvLHCbcTomRHppc616GTI1KgXdHR2zH9Ecv8F4qS6neORzDPMaySOlVsDwSN Yzub3aaRGnPPlki3SzFJS2pnV1sJGcuXUyWTRbMZ73Qrmoy4KvCyetJFC0FKSkphFdw6Iiv9nvHxBdjc XrJ7gnH6MdOEFlCPJqAWKyWbWhzpBrd2Vbz1ZprGOnl 9844) Rj9j0yoLAMaWYWrcBaax1daFJD3BKFgB2N3bQZwx9suDQutUAUanFQ1zoP9ZDSshLNiE7AewT8rPTAcA L8rlxe5p8opRUX4WOozDUKcDcL2ffA0XLBbdPIbRLAwmNeiOSppz118GND0HlTdPTRcq9CtF0BwtMeaU 99dzSaeH78jQRGmjCecbL4jtIbgsH4oJlXnXnCkSItb sGqapMMkpnvpGSmloeK9HZlksjysGHKgPUxmZ5beYlGjXNFtqVcoZWhns2ZdOJSxEVFjBysidfS0HYUC j63zDMApe7WnSAUujG0vvDJbCIpjmmBdnAV4VPvhxqWnBlMsbxXaBOPutI1wIQCfIY3mTSBtdvEybo8x zxIrYNIiNEQrW1YhowkaaBdcfmJbBTYicg5toiXeNOL 3LSZUHR4KELHnOHKpr61xWUNolAuohG4paLGceqSkPUByh7WzjA4itLXABJHwD8agSK1zYVzvv5LsgEO hdZQreUG8AWWww5RxMnWeluSjdJOtmTIbU6NqdYorU1dwDXKbKLMekeRruQTsx8ZuJNXmcND3gBUlVF8 WWtHQc81wLGFeJVLTfjXaATKwgFepkHG3pxC1aE0tCg WSGjFqsGTamVXgMcwyAPUpl143uu8yzgT3PDTrCCHfnaqxe7UfDDMmCZQarF19XMBxFWFxcf3bfoyuyG HbggLuL5Dmcff5pP3lMQAeBIluDEQgAGMsMoRvqAQvHwElYgKeiXrwtVvwCAucPnIsAKAbRCoiU9oyJc FcZnMyMlxwYXJ9 MD CasperCOVID-19 (SARS-CoV-2) PCR-Asymptomatic [id number] 03:44:11 Test Item Value Reference Range Interpretation Comments COVID19 (SARS Not Detected Not Detected This test is a CoV-2) Result qualitative (test code = reverse-transcr iptase 11947-7) polymerase laurel n reaction (RT-PC R) developed for t he [employer] 680 0 system and inte nded for the detecti on of SARS CoV-2 RNA in human nasophary ngeal specimens from patients who me et COVID-19 clinic al and/or epidemiological criteria. This assay has been approv ed by the FDA for use only under Emergency Use Authorization ( EUA) in laboratories that have been CLIA-certified to perform moderate-comple xity and high-comple xity tests. The performance characteristics of this assay were verified by the Microbiology Laboratory at [facility], CLIA Accreditation # : [id number] and CAP Accreditation # : [id number]. Result s must be interpreted within the context of all relevant clinic al and laboratory find ings and should not form the sole basis for a diagnosis or treatment decis ion. "Presumptive Positive" resul ts are due to partial amplification o f SARS-CoV-2 targ ets and indicates l ow amounts of viru s present in the specimen at or near the limit of detection. Regardless, individuals wit h "Presumptive Positive" resul ts should be manag ed per institutional guidelines as individuals pos itive for SARS-CoV-2 virus, including use o f appropriate inf ection control protoco ls. Internal contro ls are included to ass ess for possible amplification inhibitors. If inhibition is detected, testi ng is repeated and if inhibition is confirmed the specimen is res ulted as "Invalid". W hen an "Invalid" resul t occur, it is recommended to wait 3 days before submitting a ne w specimen for te sting if clinically indicated. COVID19 SARS EMERGENCY SERVICE RESTORER Swab Source (test code = 30209) COVID19 SARS Pre-OR Procedure Indication (test code = 84076) MD CasperTMP Interpretation Antibody Screen [id number] 23:24:47 Test Item Value Reference Range Interpretation Comments TMP Auto Neg At the present ABSC Interp time, patient (test code = plasma shows no ____SUDHIR LY MD - 7535) evidence of RBC [id number] d by: alloantibodies. MD Isaiah WEBSTER [id number] D ate/Time: 10.29.2020 17:2 4 PM ENVIRONMENTAL HEALTH SAFETY MANAGER Transcribed Da te/Time: 10.29.2020 17:2 4 PM CSTElectronical ly Signed By: MD Isaiah PAULINO [id number] on 10.29 17:24 PM MD CasperConfirm [id number] 20:06:14 Test Item Value Reference Range Interpretation Comments ABORh Confirm. (test code = 882-1) A POS MD CasperRffjksrdVWSAm3096-90-04 19:59:58 Test Item Value Reference Range Interpretation Comments ABORh. (test code = 882-1) A POS MD CasperClot Expiration [id number] 19:59:56 Test Item Value Reference Range Interpretation Comments T & S Expiration (test code = 11/01/2020 5318) MD CasperAntibody Mqqovs0824-08-06 19:58:01 Test Item Value Reference Range Interpretation Comments ABSC. (test code = 890-4) Negative ABSC MD CasperGlucose, [id number] 17:58:52 Test Item Value Reference Range Interpretation Comments Glucose Random (test 98 mg/dL 70-199 Effecti ve 03/18/16, the code = 9360) glucose referen ce intervals have been updated based o n [place] [employer] lizeth delines (Standards of M edical Care in Diabete s 2016. Diabetes Care 2 016; 39: S13-S22).Fastin g blood glucose:Normal: 70 99 mg/dLImpaire d fasting glucose (increa sed risk for diabetes or pre-diabetes): 100 125 mg/dLDiabet es mellitus: >/=1 26 mg/dL Random blood glucose:Normal: 70 199 mg/dLNote: Random glucose >100 mg /dL is associated with increased risk for diabetes MD CasperPhosphorus [id number] 17:58:51 Test Item Value Reference Range Interpretation Comments Phosphorus (test code = 6817) 3.5 mg/dL 2.5-4.5 MD [id number] 17:58:50 Test Item Value Reference Range Interpretation Comments BUN (test code = 5055) 19 mg/dL 6-23 MD CasperElectrolyte [id number] 17:58:49 Test Item Value Reference Range Interpretation Comments Sodium Lvl (test code = 132 See_Comment L [Au tomated message] 7444) The system [employer] generated this result transmitted ref erence range: 136 - 14 5 mEq/L. The refe rence range was not u sed to interpret this result as normal/abnor mal. Potassium Lvl (test code 4.1 See_Comment [A utomated message] = 4270) The system [employer] generated this result transmitted ref erence range: 3.5 - 5. 1 mEq/L. The refe rence range was not u sed to interpret this result as normal/abnor mal. Chloride (test code = 91 See_Comment L [Auto mated message] 9509) The system [employer] generated this result transmitted ref erence range: 98 - 107 mEq/L. The refe rence range was not u sed to interpret this result as normal/abnor mal. CO2 (test code = 5227) 33 See_Comment H [Aut omated message] The system [employer] generated this result transmitted ref erence range: 22 - 29 mEq/L. The reference r arabella was not used to interpret this result as normal/abnor mal. Anion Gap (test code = 8 See_Comment [Aut omated message] 9325) The system [employer] generated this result transmitted ref erence range: 4 - 14 m Eq/L. The reference r arabella was not used to interpret this result as normal/abnor mal. Lab Interpretation (test Abnormal code = 73539-5) MD CasperGlomerular Filtration [id number] 17:58:48 Test Item Value Reference Range Interpretation Comments eGFR-AA (test code = 61 See_Comment Normal eGFR: >= 60 8062) mL/min/1.73 m2N ote: The eGFR is neeru culated using the CKD-E PI equation. The e GFR declines with a ge. eGFR <60 mL/min /1.73 m2 is considere d as "decreased". Th is equation should only be used for pat ients 18 and older. According to th e National Kidney [employer]'s Ki dney Disease Outcome Quality Initiat kailey (KDOQI) classif ication and 2012 Kidney Disease Improvi ng Global Outcomes (KDIGO) Clinica l Practice Guidel ine, the stage of CK D should be categ orized based on estima eamon GFR. Stage Desc ription GFR mL/mi n/1.73 m21 Normal or h igh GFR >=902 Mildly decreased GFR 60-893a M ildly to moderately decreased GFR 45-593b Moderat carlo to severely decrea sed GFR 30-444 Estela rely decreased GFR 15-295 Kidney f ailure <15 [Auto mated message] The sy stem which generated this result transmit eamon reference range : >=60 mL/min/1.73 sq. m. The reference range was not used to int erpret this result as normal/abnormal . eGFR-DAYO (test code = 53 See_Comment L Normal eGFR: >= 60 8063) mL/min/1.73 m2N ote: The eGFR is neeru culated using the CKD-E PI equation. The e GFR declines with a ge. eGFR <60 mL/min /1.73 m2 is considere d as "decreased". Th is equation should only be used for pat ients 18 and older. According to th e National Kidney [employer]'s Ki dney Disease Outcome Quality Initiat kailey (KDOQI) classif ication and 2011 Kidney Disease Improvi ng Global Outcomes (KDIGO) Clinica l Practice Guidel ine, the stage of CK D should be categ orized based on estima eamon GFR. Stage Desc ription GFR mL/mi n/1.73 m21 Normal or h igh GFR >=902 Mildly decreased GFR 60-893a M ildly to moderately decreased GFR 45-593b Moderat carlo to severely decrea sed GFR 30-444 Estela rely decreased GFR 15-295 Kidney f ailure <15 [Auto mated message] The sy stem which generated this result transmit eamon reference range : >=60 mL/min/1.73 sq. m. The reference range was not used to int erpret this result as normal/abnormal . Lab Interpretation Abnormal (test code = 18002-4) MD CasperMagnesium [id number] 17:58:47 Test Item Value Reference Range Interpretation Comments Magnesium (test code = 6359) 2.5 mg/dL 1.6-2.6 MD [id number] 17:58:45 Test Item Value Reference Range Interpretation Comments TSH (test code = 1.74 See_Comment [Automated message] The 7578) system which ge nerated this result transmit eamon reference range : 0.27 - 4.20 mcunit/mL. The reference range was not used to interpr et this result as emil l/abnormal. MD Casper.Serum [id number] 17:58:44 Test Item Value Reference Range Interpretation Comments Creatinine (test code = 5399) 0.98 mg/dL 0.51-0.95 H Lab Interpretation (test code = Abnormal 28472-3) MD Mao [id number] 17:58:43 Test Item Value Reference Range Interpretation Comments T4 Free (test code = 7502) 1.20 ng/dL 0.93-1.7 MD CasperProthrombin Time with [id number] 17:50:49 Test Item Value Reference Range Interpretation Comments PT (test code 13.3 See_Comment [Automated me ssage] = 8046) The system [employer] generated this result transmitted ref erence range: 12.0 - 1 4.3 second(s). The reference range was not used to int erpret this result as normal/abnormal . INR (test code 1.03 0.90-1.10 = 5973) ANA MARIA (test code This lab cannot be = ANA MARIA) scheduled at the following locations due to collection/proccess ing restrictions: [facility] and [facility]. MD CasperHemoglobin [id number] 17:40:52 Test Item Value Reference Range Interpretation Comments A1C (test code = 5.4 % 4.3-5.6 HbA1c value s >=6.5% are 4632) diagnostic of d iabetes mellitus.Diagno sis should be confirmed by repeat testing.Therape utic Action suggested: >8.0 % HbA1c; Goal oftherapy: <7.0% HbA1c MD CasperCbuabnoxZokwqeqfefnt2266-35-55 17:22:26 Test Item Value Reference Range Interpretation Comments Neutrophil % (test code = 67.9 % 42-66 H 6491) Lymphocyte % (test code = 20.6 % 24-44 L 6194) Monocyte % (test code = 8.8 % 2-7 H 6422) Eosinophil % (test code = 1.3 % 1-4 5520) Basophil % (test code = 1.0 % 0-1 5068) IGRE % (test code = 5958) 0.4 % 0-0.4 IG RE % count includes Metamyelocytes, Myelocytes, and Promyelocytes. Neutrophil Abs (test code 4.88 K/uL 1.7-7.3 = 6492) Lymphocyte Abs (test code 1.48 K/uL 1-4.8 = 6195) Monocyte Abs (test code = 0.63 K/uL 0.08-0.7 6423) Eosinophil Abs (test code 0.09 K/uL 0.04-0.4 = 5521) Basophil Abs (test code = 0.07 K/uL 0-0.1 5069) IG Abs (test code = 5954) 0.03 K/uL 0-0.04 Lab Interpretation (test Abnormal code = 68243-2) MD Casper.[id number] 17:22:24 Test Item Value Reference Range Interpretation Comments WBC (test code = 7.2 K/uL 4-11 8034) RBC (test code = 4.44 See_Comment [Automated message] The 6932) system which ge nerated this result tra nsmitted reference range : 4.00 - 5.50 M/uL. The reference range was not u sed to interpret this result as normal/abnormal . Hgb (test code = 12.5 See_Comment [Automated message] The 5898) system which ge nerated this result tra nsmitted reference range : 12.0 - 16.0 gm/dL. The reference range was not u sed to interpret this result as normal/abnormal . Hct (test code = 39.1 % 37-47 5860) MCV (test code = 88 fL 82-98 6222) MCH (test code = 28.2 pg 27-31 6220) MCHC (test code = 32.0 See_Comment [Automate d message] The 6221) system which ge nerated this result tra nsmitted reference range : 31.0 - 36.0 gm/dL. The reference range was not u sed to interpret this result as normal/abnormal . RDW-SD (test code = 41.2 fL 35.1-46.3 6972) RDW-CV (test code = 12.8 % 12-15.5 6971) Platelet count (test 198 K/uL 140-440 code = 6832) MPV (test code = 10.3 fL 4-10.4 6282) INRBC (test code = 0.0 % See_Comment The INRBC (instrument 5974) NRBC) value ref lects the enumerationof n ucleated red blood cells contained in a 200uL samp leof whole blood analyzed by the instrument. Thi s value maydiffer from the NRBC value reported in a manual differen tial,which is based on a 1 00 cell differential. [Automated message] The sy stem which generated this result transmitted ref erence range: <=0.0. T he reference range was not used to interpr et this result as normal/abnormal . MD CasperX-ray Chest 2 [id number] 16:58:13 No evidence of intrathoracic metastatic disease or acute cardiopulmonary process. 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 Biapical pleuroparenchymal scarring is symmetric and may bepost inflammatory. No pleural effusion or pneumothorax.The heart size and aortic contour are within n ormal limits. There is atherosclerotic calcification of the aorta.No destructive bone lesion or acute fracture is appreciated in the thorax. Mild curvature of the thoracolumbar spine and multilevel diskogenic degenerative disease.IMPRESSION:No evidence of intrathoracic metastatic disease or acute cardiopulmonary process.MD CasperUS HEAD NECK SOFT [id number] 20:55:15No lymphadenopathy.Interface, Radiology Results In 10/22/2020 2:57 PM CSTFULL RESULT:Examination:ULTRASOUND SOFT TISSUE HEAD&NECK on 10/22/2020 2:08 PMClinical History: Melanoma the left lateral canthus.Indication: MelanomaComparison: NoneTechnique: Real-time ultrasound examination of the neck soft tissues was performed.FINDINGS:Suprasternal and Superior Mediastinal: Clear.The bilateral parotidglands appear normal.Right Lateral Neck: Clear.Left Lateral Neck: Clear.Submental to Cricoid: Clear.IMPRESSION:No lymphadenopathy.MD CasperPathology Outside [id number] 21:59:00 Test Item Value Reference Range Interpretation Comments Materials Received (test z3efxZMoIGBaiOJkHcVz code = 9973) TSNsXDJgn9jzUMRasQQk ZzEwMzNcZnRuYmpcdWMx EFFwJkUjb0dck964jGVi a3fzDSNsIrE4kEVdHYHz dPKbY665ZWDpDYbyi4wh n3DwCAUnsLPvh3N1LTIX zxigkIk4wYtjH78qg9R5 YiniQ3kdBAUiTMNiA4Wz PN8bEQKvPkp8WHB0XWZ9 ZELtOOBvW6JsZU6lYMDn zPTuROo7h0zhmPleSBXu BGX2m0xjVNuubsYvLE5o jh9qyQp3q0ngikNlEJWn PRMwjIQEZTVyU8SmuFvs Fx9kgGz9zKjcIcmcEGH1 Oym2UH9ggn20cpt0jQut PCEunaikWqR9WMlwZOCb xzzsTIg9AVzmYUGyjKii MFxtYXJncjcyMFxtYXJn oMF0LXQmiCDrK2BpMDKo EMxjDBDqouu3BkVkTy3r zDZjoVodEHjyu5eba1hq hJUtAmy3NVSdHpVlNaod YPzzd3Bkr6tbLNSynj8s UMK6vJAuhGnxn5V2cOQc NCIaxUJshqQzHLRuqb45 iZClyGHxeKEpsb0hzsAw xZHxkKEnUDI2pAMjugUd YDAszYEgMNMgPU1wsNYe HBDcwR1rzmvlLIYyXwTq uxmkSJNuhKgqjpVoEp9k rEjhKHR7JCcsL8tixS9u ThA5WHyjO5puyB5rAXf0 LXppcMA6SGEijG3mGK3v vrvcx8klUdYoNT7wrnng u8xmTlXxGF2hogj7o9tg CAT2NZixFFJkFqD0ujO2 NDBcaGVhZGVyeTcyMFxm j116REA8OhDzKHGfv9Mt R9IuwTjkA49rvYhbZ79v JCQwrGaioU3yaKzbqO3t KcTiPcViKKs9gl94VKg9 pnsjiImmGEh3mtLeYBRf SIM0JJVzhXSkSSOwR4r3 mvKeCTZkRTO3VZXslDOk CTDoG4a0ljSsDVY9BKn4 cnBhZGRmdDNcdHJwYWRk YjBcdHJwYWRkZmIzXHRy gQBpmISgmZWnyX5wqNyb JBSnvVXcuE0gOTV9OSEs cmgzMjBcdHJoZHJcbHRy nv74WDXxepDyrNRojEjg jGUcILZ9TTXvGMJwLZGk UJQ1EAWfJsWrerUbMQyu bGJyZHJiXGJyZHJzXGJy CKR4CRMdCeFxviTvLZwd bGJyZHJsXGJyZHJzXGJy GJR8EBQmMtPrldPnLDlg bGJyZHJyXGJyZHJzXGJy GQJ5NWKjZiXkmmTnRJaj bHBhZHQxMFxjbHBhZGZ0 V7ivxTJtLRSkVAwxaAIm QJBlR8vqhHWxOAiyHQGk cGFkZmwzXGNscGFkYjBc L7otJCAvAzWjH4UnaLg8 MDAwXGNsdmVydGFsdFxj pKQmATN1VYZeHXKeDIMj IEV9YKCjHgOpfhSlWTqz bGJyZHJiXGJyZHJzXGJy ZRB7WFQbBzBxxhNqRSpq bGJyZHJsXGJyZHJzXGJy KGF7GISxUwKnsxMgHCpc bGJyZHJyXGJyZHJzXGJy UMA5SFKtKpIlypXrHZih bHBhZHQxMFxjbHBhZGZ0 A1dinZMzABJvFUzuvYOx VPKiK3nfzGGdQLdwDLCx cGFkZmwzXGNscGFkYjBc O4flAZCbJvDrA8LnbPl2 NjAwXGNsdmVydGFsdFxj fIEvYCG0RHMsQKEqNNLr FHZ6YZYtKyNsomUjHAzi bGJyZHJiXGJyZHJzXGJy EYO8IDThBdXpdlIfKAzi bGJyZHJsXGJyZHJzXGJy YWD9VUMaHxZqtgLxLHkn bGJyZHJyXGJyZHJzXGJy CAY7PMQwLpMmgdTrYVnn bHBhZHQxMFxjbHBhZGZ0 V5zfzPZkRGFtIRzzsCVs CPXmK0cifZOlJYoiRCOq cGFkZmwzXGNscGFkYjBc A7pmEUAxVjMuR5XhcUm6 NwEmUYYdulXluV62Eyhx i6QiAQBhNFI0ALwyTGtt bFxwbGFpblxmMVxmczIw NLlbmmlfOJPlEFfkH5yu PmOcATRwsOytCFapj0Ni XGYxXGNmMlxmczIwXGIg IEOnWPQjcB6iVqvrJ2Hs zG7mDRceDjgcE3foFRFy c6NyyX4hJKjndOWoaqsh MVxmczIwXGxhbmcxMDMz BUmbT3daZpXcNTMqaIua EPowz0RkZYDvDJFyCvpy faUaKWm3feOmCIUthPvh bOTwSHuwnzDtjJfvu7Cs bzXxbHghPXInIGq9qgIk wbbrnTr1qPYomOixRDGw pSpaaT4uLqVjYoKjQTkq bGFpblxmMVxmczIwXGxh evmfZXKuMHviD6zjZyLm DBHdhWtwVFaie0VfTNYh IOByLpvvmaYxVUAoJ70h bGVjdGVkXHBsYWluXGYx XGZzMjBcbGFuZzEwMzNc aGljaFxmMVxkYmNoXGYx KYwgI2mbGuHsO5KjNFOl XoMpyVLvK7mmJ8LwwBnc YXJkXGludGJsXHNzcGFy UDM1mUYmtuOyeNDziTGp XIDhXBdhJGM5yGXwfcia eCPymcbxTDkwtsB0XDWq YWluXGYxXGZzMjBcbGFu ZzEwMzNcaGljaFxmMVxk YoMfBLChZUisD1euYvUp H3FkTADrCwMyRqTLOLVj aXZlZFxwbGFpblxmMVxm czIwXGxhbmcxMDMzXGhp I9ubUcVkBENhfEshWUoo o5MhKLYiQDIfAgckngEk ZUo5idHxMYWsdHrooZ60 Uwokgm45BAHtb9wrEZPl I5UssBByNOFlbUHlLLsq MDhcdHJwYWRkZmwzXHRy cGFkZHIxMDhcdHJwYWRk ZnIzXHRycGFkZHQwXHRy kSKwTED7Z8w9ocUuJZXc BIh1zmDnZWRaEwMstWQr FCJ6ZFd7TkjepxN5tJDi B8w8NwrzfoHcCOfhqIOl ku87DXIdklEkgQQoxDzw tZAzPLZ7LVUyKDQfNECo CLQ5GZEbGzRkbzIxVOxb bGJyZHJiXGJyZHJzXGJy JNC8APTiOoPqstPoIYmc bGJyZHJsXGJyZHJzXGJy QAY7SDNoBvIfslAbGUab bGJyZHJyXGJyZHJzXGJy FXW3TURyNwNvnnXhMKel bHBhZHQxMFxjbHBhZGZ0 E3lplYFzFCHcNSlvmAOo ODPqG4mynLKrFImeRTTw cGFkZmwzXGNscGFkYjBc G9vhJBHeAtXkU9ExdEf3 MDAwXGNsdmVydGFsdFxj dCPwKHT6PHWqXRPvUKSf SZW8XCCeJtUcwmRfNZpp bGJyZHJiXGJyZHJzXGJy GSC3OGWxKxQxwfShLSta bGJyZHJsXGJyZHJzXGJy PLX7NHChUkJqyoMiSJid bGJyZHJyXGJyZHJzXGJy IQC3CXRpBuLihyZbDNjh bHBhZHQxMFxjbHBhZGZ0 V7hrzSBaJUXzDFpiuTGb DYMbI6vqiLVqDKbmJGDn cGFkZmwzXGNscGFkYjBc L1apJTEjQwXqW0SrrVi4 NjAwXGNsdmVydGFsdFxj iHOdUBH6WWJyFGWqKUSp MEQ4XXNnJjTaosMjXHfm bGJyZHJiXGJyZHJzXGJy HLU7HTCsKvMcnbDkXYlc bGJyZHJsXGJyZHJzXGJy CGG7LPVxMqYkpvDmRDaa bGJyZHJyXGJyZHJzXGJy IGL4YKAfCgOvonChFAaj bHBhZHQxMFxjbHBhZGZ0 H9jfgJYvBRWaEEyhbWYr UVYfM9ibpLBdGHdfYJSe cGFkZmwzXGNscGFkYjBc S7rnMQJhQtPqB5IozHc4 FxKvSVYnvgRvuZ46Dhvr o8KlJLXrRTF2KEccMRhj bFxwbGFpblxmMFxmczI0 XHBsYWluXGYxXGZzMjBc bGFuZzEwMzNcaGljaFxm JQysNaFzTVHxQUxzG5eu SuUpC3LuGMRpAlXaIM2d HRHVRmNzKBJ1SYbrNJTC DuxhZZRNXY6IX4OuJUOx VVNTXHBsYWluXGYxXGZz MjBcbGFuZzEwMzNcaGlj aFxmMVxkYmNoXGYxXGxv I5ccIfYaH3BjWLUeQbUz eSNfD3keH3DrqBzfXRZu XGludGJsXHNzcGFyYWF1 tSMmftIsvJqvwWnhwK8y ZjBcZnMyNFxwbGFpblxm MVxmczIwXGxhbmcxMDMz IEzxE9cnUhEzWKIvgByh GMvhg9XnQYLdZBLbMkpa czIwIDEvMjYvMjAyMVxw bGFpblxmMVxmczIwXGxh frcsFLPzMXihD8wvGkHa ZOImsBnnXVwdp0CuUIBe WRGzRrhctaFsZKi6ciFs XGNlbGxccGFyZFxpbnRi xUigf5VhscVokYbkDFZu XHFsXHBsYWluXGYwXGZz GuUgmFzhdH9yZjFeLsTr TSpqMV7oLWYtP0oxaHXb KUDhJOJvS2vfMhLekY4m aFxmMVxjZjJcZnMyMCAy YlQ3GyYjGkQgiQdjvH4t QvYlFnYxNTigPI5bSTOr G0kybYHtXLEzEKVwH9me BzBejD1sgUorANhkDlZv ZnMyMFxsdHJjaFxjZWxs GOkonRKiPVJdz4mhHXGt HXYpxZPhBGB3xUXeaqNf cTfzrEeniY9uNrTaQgAi NFxwbGFpblxmMVxmczIw LFmklxlcELIiCNunV2wm IbTdXYQilElaMFtzt2Dm XGYxXGZzMjBccGFyfQ== Correction History (test s6corMQdHYYznRU7FfVy code = 9843) VNCga2iet6DuyTKuiDOj DQgabXLhuqUgkq25aAG1 qR46VK9pGXBuToQ6VLTy neZ0Bjx3RTHrQTJioHNr A552t6imk0arbtMxfUT3 fVxwYXJkXHBsYWluXGZz MjAgVkdQLCBDQVQsIFBO XHBhcn0= Diagnosis (test code = a4xymROrPJAhkHK7ZuVz 34) FLJbw9zca2CyuZZmyBMd CJtxyIOmrlYfzz59tCL0 qX48WM4eEXJwRnE8OSMm btG9Fef2CKSvBBEwpXRm L607a2ibq4nsafTsgDG3 fVxwYXJkXHBsYWluXGZz OmIrU1B1j3mtSGVtGGRW EgOxEAS8VVupWLUZCkrb FHURXM3PI8RgDYUgXVZF KTBej6vuPTE2XHNgn73r MU2hBs3iXHAjQRpfOWZo clxwYXJcdGFiIExlZnQg gVI3GBPtnPQoRQ85bVJs BXGijQ2mhMHgdF4cm0ou UOQ8CVnrWFcoLIUtJXQ5 I2A2UNEDKT4aEFwcTEKq kGDtDLOCBuPJRMd6JXJd clxwYXJcbGkxNDQwXGxp wxF5JUNqPKSFRZ5ECNCy OOFYVcXLI19CPsUHKIpJ QWgABLZRQDIoA4pOQGVY DV4EYNFGLDTXJOJSB0kR TiBBTkQgUkFSRSBBVFlQ DPLGGM9ZPPBPC2EAOKUU IElOIFBBUElMTEFSWSBE RVJNSVMgKElOIFRIRSBE LKRVAQZqR8XWMIfUUqYk TiSLMBwNKENyMn0LEIBB VhgYWqbbTHOPSON1SMgv FTIozPp5MbZoUea5XbMn yZioAbNsFD5RWMWQB97F IElOVkFTSVZFLCBTVVBF VeGCJ4cJMCIELUQOXRPH TxjaDOzTUSdeNGHzR8eS QmdaPGHBSTs4SZuROMUc kcCXCaKEJX4VYQZDQDBG JyJIOojxTG2kHnCIRPov A1CZUQFPVX5VCgGvjATt XPYYEEiAAFKsFj7ESRTV QA4ACOtVHjaHQOLDLf7J BVkxFYmNO1M1ECIBXRBH UoQarOEcHHKQAvEZE4LP PFfLRE8UEgwEAL1FIwxo M7DDF2GWBMYVJVDNKsIF V5AnIDMYFiWXUDUDWRMv qaALKAHAEEvKRXBSH8RI CTYkeI2fq1WeFEGsKutg h1E8lMEri0QeKAyiTWUr JUPCPRoEXHWNLa2WUQYO O06EQ43XKoDyJEOarzRO RXDHMhDLFG2RHpLPW2Bb SURFTlRJRklFRFxwYXIg HhBKPrFHL5uWOchjCTRG X8BMBNwjKm9AQOryaEJz SGSQB2EAZFIJDExPHlSG WO4SZsHZL5TrBEHFIuKI EgePJBcfWXYfZEUVYN1I FXACUYCRMpOXH0fJYazf Nj8QSVaJTA6ZBVIYKGQf dGLwYP9ZY1ZUC8SGANzN MYXUQIVRHXmKE9XKCgei Zy6CETyVEY0NHJHJIAYf pDJaAGPGII7VYXxPBxuI POOZRWzNUwFTQY1NIV7P RAOTJnjeDa6PMMBNNACQ SEBllvHSK2QNA0bKOGYV DJ3DYGUYP2WZQFtBWO4Y EzSEGnQQZ8DnZQHCVkXL JzjUQZciBCEsJWQTOH2Z IN8DBsGsG1fIM1wEA9x1 ETIETDYXYRtVM7RsxIJz XASIF6WPYIMABFkELata MUAMYS9XDHPhKF9gZ6zT AWAFHrEDEI6EQHBSLVEV TssXEXMXNGjjESwDN7NZ QJQLH4BvbXKhSXLpovOd DZDGZ7uSVMSapc4= Comment (test code = l2ltnOHdAZRocJX4RrVc 9820) JNNae8qye8UlzKVneUUt URexqJInvrCowv82aWO0 uR42HD2hNLWjWnH1BUQz hiX2Hyw6UJPtARXpnVBt C509p0zos1rcejOdhSC5 fVxwYXJkXHBsYWluXGZz BcBqTHzkFOTzu1SwEVGn DIjjyVQja7kmb6MpG2fw xNqdSEdba2E3HQoaPj7s IFNPWDEwLCBQUkFNRSBh yqHiIRMuhUIyXJaoI6lx dYlemSEsrF3wt8z7uSSh FCwonj2uOBXuqtO6ASfj CBTdOEShxiCneE44HJOh wcCzA4XfqYCswW0vi6Dp ZXJmaWNpYWwgZGVybWlz ExLfFYkkf0XsTjfuFJdm G5Jra8KrsC7gxJY7mQSl HUJamfBzFCpbY10bj6lj LlxwYXJccGFyIFRhbmdl giEtMIxzp6HwyGggwoxr ZyBwcmVjbHVkZXMgYSBj q32tpXQ8CSLxb1Vdg8Lb DN67DZ2lTOFqNER8aI7c xbD8kJpxd04ih3IvQOUv ecJwBHOyZGCzPWRqu87l QCr1DR8qzxN1aaP4rBLb fKinj8WnYYLkB9CvVUMq m2HiWYwacMtcxeC2pQPs CFOdk7CjtAPfe2Uja3Ez r9GeiHHobM4bEBEnY8Fm k21lo8EoL3ssLC0vSTFv zRumkoTcisZ9y64iBpAz w2OljErjucEuxqHbLENe mF8evgSnVDAhIvWniQec kHMmeHg9BLsrSMgnEIWd WE2skSOkAAUpeeHzzMRg XGIocGNcC9KkIHY8ITPu x6M6VDubRLXxjkLeXOoh C9Lqm7LaCOX2GLCoEHIm QAMnVUAneDF9sA1fp7h0 NNXzK7LnlIjbC51nLsTx KJ6vQR5cXVYjbz5= Disclaimer (test code = u6xsaIMrICYniEIjJqSp 9844) JOWxCNLmn9mpLNMcfMVx ZzEwMzNcZnRuYmpcdWMx LBOtMmOrt9unk814aXQc t9ppOQGcXxZ8uUZiBWUf kIFyM666PEIaIDswd5nn a2JyNFZcwLHyh1F4CDHW mtvpxGn7pDzhV10ex2S5 RxatD7uwASGsMJFiF8Qy AB5qYDJyLgc9EDG9VQG3 APWcALPoD6MhGA8aHSId jDWvHDr8t2krkCngFIEd NYS3d2dtMOmvjzVeHK0z cs5shTh8f9nqfzJsTFIu RXBrwRIBJLFqZ4KkvDac We9uvSq1rVdsBvigKFO8 Jzr9OC6vcm46gld0fKkn JVMdbhlzYvY0GItyAHPx dywgXUo1NUbrMKTydMB3 CONxiJDgD0PhRZGuMZ2x uvw0RGE0TBpwJRFrWpB4 NDBcaGVhZGVyeTcyMFxm g032TTQ0NuLuOV4gP4Md q9E0tK8psOYkYSPbkSMb CzZmJNGywp2bbIWbLQtu x1KkSIL3ndR0hWWvzUHp WMMqVY31Zvxmu6SgLdcl OWS5RYGrwuXcr7Ecs7em ThLfaoFyO3ojD3RwTPUp GMKeLGYbIzAokxEpy4Gh o8UueBWgdMw3o7pzFBYv MGGtjQfmh8puUUK8IQGg K6P2oXJcc6uhSCsbONGj mPI8klT7XEZznBYmX2Sv kE8gVZMfEP4zofx4k5ux MBK6VLbcUJAkJpM4bfH4 NDBcaGVhZGVyeTcyMFxm v456FCM2XxCtUATsj3Cc O6BgkDiaX81ojYbdH49l CBNhqRmfyH0twSpwfH4p ZjBcZnMyNFxxbFxwbGFp xhpyWOjtaaX5BYassijo PPTgVXycY2qyVyEsXBEt bBiuOUwyz9QjZCTuJHCg HbfsybH6XQJQw74cBYKp n9MhVYZwiX6daOZsKItv pnUhzJC8XPkubcLaBoGs nqBkCKBkpW9sFFHwDA3j DODwtdPrnr4cgsJgTGJr THFdZ4KinszhyAkqehBr UWArvs8vnfLqBEQ3SSFC YC7KHCTcEWMhe39qYSZc nHdluJ5rnPLnejRkUZWu b4CuhA2rrIGAASDsP4mq NP1wAJwgz5KdbXYtyFRs eMN8UZScl6IwIuBgaiJx iPQmaMAjP2SrjDgfL8cc EOOgSSCwkrXmgAQwx3Ch SZQirFH6gMLbUS4ZHjAD h88lJOIgIQRMuxOlWRNn qYyabZK4fzM8qA4tJoFG ZiBhcHBsaWNhYmxlLCBj f978en6ffiC4VYLbNMLm dnjkj6QeANKhLTMvyI61 IPLxVYXvos3iovrwaDPy gjTlP9Xakvz6dG3bQWEq YWluXGYxXGZzMjJcbGFu ZzEwMzNcaGljaFxmMVxk PfLeXHZxCQzhO8lsEoYv ZnMyMlxwYXJ9 MD CasperMD COVID-19 (TRINY-CoV-2) PCR [id number] 12:14:18 Test Item Value Reference Interpretation Comments Range COVID19 SARS New Patient Indication (test code = 27755) COVID19 SARS Result Not Detected Not Detected (test code = 92641-5) COVID19 SARS SARS-CoV-2 NOT Detected. Interpretation (test Reference Range: Not code = 42141) Detected Methodology: The [employer] RealTime SARS-CoV-2 assay is a qualitative real-time reverse owner consulting engineer polymerase chain reaction (production machinist-PCR) test to detect RNA from SARS-CoV-2 in nasal, nasopharyngeal and oropharyngeal swabs from patients with signs and symptoms of infection who are suspected of COVID-19 by their health care provider. The [employer] RealTime SARS-CoV-2 performed on the OpenGamma000 System is a dual target assay with primers and probes for the RdRp and N genes. Results must be interpreted within the context of all relevant clinical and laboratory findings, and epidemiological risk factors. Positive results are indicative of the presence of SARS-CoV-2 RNA; clinical correlation with patient history and other diagnostic information is necessary to determine patient infection status. Positive results do not rule out bacterial infection or co-infection with other viruses. Negative results do not preclude SARS-CoV-2 infection and should not be used as the sole basis for patient management decisions. The [employer] RealTime SARS-CoV-2 assay is for in vitro diagnostic use under FDA Emergency Use Authorization only. Testing is limited to laboratories certified under the Clinical Laboratory Improvement Amendments of 1988 (CLIA), 42U.S.C. 263a, to perform high complexity tests. The Test was performed by the CLIA-certified, high-complexity Molecular Diagnostics Laboratory ([facility]) at [facility] [place] under the Food and Drug Administration (FDA) s Emergency Use Authorization. Factsheet for patients: https://[email or web address]/ AbbottFactSheetPatientsFact sheet for healthcare providers: [email or web address]://[email or web address]/ AbbottFactSheetHCP Test performed by:[facility] [id number] [place] [address] [facility] W Auto Differential panel - [id number] 12:26:00 Test Item Value Reference Range Interpretation Comments white blood count (test code = 8.5 K/uL 4.0-11.5 white blood count) red blood count (test code = red 4.46 M/uL 3.80-5.20 blood count) hemoglobin (test code = 13.0 g/dL 10.5-15.7 hemoglobin) hematocrit (test code = 40.6 % 34.0-50.0 hematocrit) MCV [Entitic volume] (test code = 91.0 fL 86-100 49239-8) mean corpuscular hemoglobin (test 29.1 pg 26.2-33.4 code = mean corpuscular hemoglobin) mean corpuscular HGB conc (test 32.0 g/dL 30-34 code = mean corpuscular HGB conc) red cell distribution width (test 12.7 % 12.0-15.5 code = red cell distribution width) platelet count (test code = 218 K/uL 165-450 platelet count) mean platelet volume (test code = 11.3 fL 9.4-12.6 mean platelet volume) Segmented neutrophils/100 71.3 % 44.4-80.1 leukocytes in Blood (test code = 54864-3) Immature granulocytes [#/volume] 0.0 K/uL 0.0-0.03 in Blood (test code = 35046-7) lymphocyte% (test code = 18.1 % 10.0-50.0 lymphocyte%) mono % (test code = mono %) 8.7 % 3.6-12.0 eos % (test code = eos %) 0.6 % 0.0-5.4 Basophils/100 leukocytes in 0.9 % 0.1-1.2 Unspecified specimen (test code = 85697-5) Band form neutrophils [#/volume] 6.04 K/uL 1.56-6.13 in Blood (test code = 01530-6) Lymphocytes [#/volume] in 1.5 K/uL 1.18-3.74 Unspecified specimen by Automated count (test code = 10078-7) mono # (test code = mono #) 0.74 K/uL 0.24-0.86 eos # (test code = eos #) 0.05 K/uL 0.04-0.36 basophil # (test code = basophil 0.08 K/uL 0.01-0.08 #) NRBC% (test code = NRBC%) 0 /100 WBC 0-0.2 NRBC# (test code = NRBC#) 0 K/uL [facility] Group[facility]inal[facility] complete W Reflex Culture panel - Urine 2020-09-09 12:26:00 Test Item Value Reference Range Interpretation Comments Color of Urine by Auto (test light yellow code = 53139-8) Appearance of Urine (test code clear clear = 5767-9) Glucose [Presence] in Urine by negative negative Automated test strip (test code = 36938-4) Bilirubin.total [Mass/volume] negative negative in Urine (test code = 1978-6) Ketones [Mass/volume] in Urine negative negative by Automated test strip (test code = 67510-5) Specific gravity of Urine by 1.012 1.003-1.030 Automated test strip (test code = 92121-4) blood urine (test code = blood negative negative urine) pH of Urine (test code = 5.500 5-9 2756-5) protein urine (UA) (test code = negative negative protein urine (UA)) Urobilinogen [Presence] in normal 0.2-1.0 Urine (test code = 78389-1) Nitrite [Presence] in Urine by negative negative Test strip (test code = 5802-4) Leukocyte esterase [Presence] =2 negative H in Urine by Automated test strip (test code = 36098-3) Erythrocytes [#/volume] in <1 0-5 Urine by Automated count (test code = 798-9) Leukocytes [#/area] in Urine =1-5 0-5 sediment by Automated count (test code = 29581-9) Epithelial cells [Presence] in =1-5 0-5 Urine sediment by Light microscopy (test code = 22393-4) Bacteria identified in Urine by none detected none detect Culture (test code = 630-4) Casts [#/area] in Urine none detected none detect sediment by Automated count (test code = 11280-9) urine culture added? (test code yes = urine culture added?) [facility] GroupBacteria identified in Urine by [id number] 12:26:00 Test Item Value Reference Range Interpretation Comments Bacteria identified in no growth after 2 Urine by Culture (test days code = 630-4) [facility] GroupComprehensive metabolic 2000 panel - Serum or Plasma 2020-09-09 12:26:00 Test Item Value Reference Range Interpretation Comments glucose (test code = glucose) 72 mg/dL 82-115 L Urea nitrogen [Mass/volume] in 23 mg/dL 8-23 Serum or Plasma (test code = 3094-0) osmolality calculated,serum (test 272 mOsm/kg 280-300 L code = osmolality calculated,serum) creatinine (test code = 0.9 mg/dL 0.50-0.90 creatinine) glomerular filtration rate (test 59.51 L code = glomerular filtration rate) Urea nitrogen/Creatinine [Mass 25.6 12-20 H Ratio] in Serum or Plasma (test code = 3097-3) sodium level (test code = sodium 135 mmol/L 135-145 level) Potassium [Moles/volume] in Body 4.2 mmol/L 3.5-5.2 fluid (test code = 2821-7) chloride level (test code = 95 mmol/L 98-108 L chloride level) CO2 (test code = CO2) 30 mmol/L 21-32 anion gap (test code = anion gap) 14.2 mEq/L 12-20 calcium level (test code = 9.7 mg/dL 8.8-10.2 calcium level) total protein (test code = total 7.0 g/dL 6.6-8.7 protein) albumin (test code = albumin) 4.5 g/dL 3.5-5.2 globulin (test code = globulin) 2.5 gm/dL A/G ratio (test code = A/G ratio) 1.8 >1.0 bilirubin,total (test code = 0.4 mg/dL 0.0-1.2 bilirubin,total) AST/SGOT (test code = AST/SGOT) 21 U/L 15-32 Alanine aminotransferase 15 U/L 0-33 [Enzymatic activity/volume] in Serum or Plasma (test code = 1742-6) Alkaline phosphatase [Enzymatic 75 U/L 35-105 activity/volume] in Serum or Plasma (test code = 6768-6) [facility] GroupThyrotropin [Units/volume] in Serum or [id number] 12:26:00 Test Item Value Reference Range Interpretation Comments Thyrotropin [Units/volume] in 1.52 uIU/mL 0.36-3.74 Serum or Plasma (test code = 3016-3) [facility] GroupThyroxine (T4) free [Mass/volume] in Serum or Plasma 2020-09-09 12:26:00 Test Item Value Reference Range Interpretation Comments free T4 (test code = free T4) 1.08 NG/dL 0.93-1.7 [facility] W Auto Differential panel - [id number] 00:00:00 Test Item Value Reference Range Interpretation Comments Leukocytes [#/volume] in Blood 6.0 x10e3/uL 3.4-10.8 by Automated count (test code = 6690-2) Erythrocytes [#/volume] in 4.55 x10e6/uL 3.77-5.28 Blood by Automated count (test code = 789-8) Hemoglobin [Mass/volume] in 13.4 g/dL 11.1-15.9 Blood (test code = 718-7) Hematocrit [Volume Fraction] of 39.1 % 34.0-46.6 Blood by Automated count (test code = 4544-3) Erythrocyte mean corpuscular 86 fL 79-97 volume [Entitic volume] by Automated count (test code = 787-2) Erythrocyte mean corpuscular 29.5 pg 26.6-33.0 hemoglobin [Entitic mass] by Automated count (test code = 785-6) Erythrocyte mean corpuscular 34.3 g/dL 31.5-35.7 hemoglobin concentration [Mass/volume] by Automated count (test code = 786-4) Erythrocyte distribution width 13.4 % 11.7-15.4 [Ratio] by Automated count (test code = 788-0) Platelets [#/volume] in Blood 270 x10e3/uL 150-450 by Automated count (test code = 777-3) Neutrophils/100 leukocytes in 55 % not estab. Blood by Automated count (test code = 770-8) Lymphocytes/100 leukocytes in 28 % not estab. Blood by Automated count (test code = 736-9) Monocytes/100 leukocytes in 13 % not estab. Blood by Automated count (test code = 5905-5) Eosinophils/100 leukocytes in 2 % not estab. Blood by Automated count (test code = 713-8) Basophils/100 leukocytes in 1 % not estab. Blood by Automated count (test code = 706-2) immature cells (test code = product advisor immature cells) Neutrophils [#/volume] in Blood 3.3 x10e3/uL 1.4-7.0 by Automated count (test code = 751-8) Lymphocytes [#/volume] in Blood 1.7 x10e3/uL 0.7-3.1 by Automated count (test code = 731-0) Monocytes [#/volume] in Blood 0.8 x10e3/uL 0.1-0.9 by Automated count (test code = 742-7) Eosinophils [#/volume] in Blood 0.1 x10e3/uL 0.0-0.4 by Automated count (test code = 711-2) Basophils [#/volume] in Blood 0.0 x10e3/uL 0.0-0.2 by Automated count (test code = 704-7) immature granulocytes (test 1 % not estab. code = immature granulocytes) Granulocytes Immature 0.1 x10e3/uL 0.0-0.1 [#/volume] in Blood by Automated count (test code = 35647-7) Nucleated erythrocytes/100 product advisor leukocytes [Ratio] in Blood by Automated count (test code = 77375-8) Morphology [interpretation] in product advisor Blood Narrative (test code = 89318-5) [facility] GroupComprehensive metabolic 2000 panel - Serum or Plasma 2019-10-25 00:00:00 Test Item Value Reference Range Interpretation Comments Glucose [Mass/volume] in Serum 104 mg/dL 65-99 H or Plasma (test code = 2345-7) Urea nitrogen [Mass/volume] in 14 mg/dL 8-27 Serum or Plasma (test code = 3094-0) Creatinine [Mass/volume] in 1.08 mg/dL 0.57-1.00 H Serum or Plasma (test code = 2160-0) eGFR if nonafricn AM (test 47 mL/min/1.73 >59 L code = eGFR if nonafricn AM) eGFR if africn AM (test code = 54 mL/min/1.73 >59 L eGFR if africn AM) Urea nitrogen/Creatinine [Mass 13 12-28 Ratio] in Serum or Plasma (test code = 3097-3) Sodium [Moles/volume] in Serum 127 mmol/L 134-144 L or Plasma (test code = 2951-2) Potassium [Moles/volume] in 4.2 mmol/L 3.5-5.2 Serum or Plasma (test code = 2823-3) Chloride [Moles/volume] in 85 mmol/L 96-106 L Serum or Plasma (test code = 2075-0) Carbon dioxide, total 27 mmol/L 20-29 [Moles/volume] in Serum or Plasma (test code = 2027-9) Calcium [Mass/volume] in Serum 9.7 mg/dL 8.7-10.3 or Plasma (test code = 09587-8) Protein [Mass/volume] in Serum 7.2 g/dL 6.0-8.5 or Plasma (test code = 2885-2) Albumin [Mass/volume] in Serum 4.9 g/dL 3.6-4.6 H or Plasma (test code = 1751-7) Globulin [Mass/volume] in 2.3 g/dL 1.5-4.5 Serum by calculation (test code = 14552-4) Albumin/Globulin [Mass Ratio] 2.1 1.2-2.2 in Serum or Plasma (test code = 1759-0) Bilirubin.total [Mass/volume] 0.7 mg/dL 0.0-1.2 in Serum or Plasma (test code = 1974-2) Alkaline phosphatase 79 IU/L 39-117 [Enzymatic activity/volume] in Serum or Plasma (test code = 6768-6) Aspartate aminotransferase 25 IU/L 0-40 [Enzymatic activity/volume] in Serum or Plasma (test code = 1920-8) Alanine aminotransferase 19 IU/L 0-32 [Enzymatic activity/volume] in Serum or Plasma (test code = 1742-6) [facility] Group[facility] complete panel - [id number] 00:00:00 Test Item Value Reference Range Interpretation Comments Specific gravity of Urine (test 1.011 1.005-1.030 code = 2965-2) pH of Urine by Test strip (test 7.0 5.0-7.5 code = 5803-2) Color of Urine (test code = yellow yellow 5778-6) Appearance of Urine (test code clear clear = 5767-9) Leukocyte esterase [Presence] 3+ negative A in Urine by Test strip (test code = 5799-2) Protein [Presence] in Urine by negative negative/trace Test strip (test code = 56734-5) Glucose [Presence] in Urine negative negative (test code = 2349-9) Ketones [Presence] in Urine by negative negative Test strip (test code = 2514-8) Hemoglobin [Presence] in Urine negative negative by Test strip (test code = 5794-3) Bilirubin.total [Presence] in negative negative Urine by Test strip (test code = 5770-3) Urobilinogen [Mass/volume] in 0.2 mg/dL 0.2-1.0 Urine by Test strip (test code = 30392-7) Nitrite [Presence] in Urine by negative negative Test strip (test code = 5802-4) Microscopic observation product advisor [Identifier] in Urine sediment by Light microscopy (test code = 66485-9) Leukocytes [#/area] in Urine 6-10 0-5 A sediment by Microscopy high power field (test code = 5821-4) Erythrocytes [#/area] in Urine 0-2 0-2 sediment by Microscopy high power field (test code = 34461-4) Epithelial cells [#/area] in 0-10 0-10 Urine sediment by Microscopy high power field (test code = 5787-7) Epithelial cells.renal [#/area] product advisor in Urine sediment by Microscopy high power field (test code = 34106-7) Casts [Presence] in Urine present none seen A sediment by Light microscopy (test code = 65645-0) Casts [Type] in Urine sediment hyaline casts n/a by Light microscopy (test code = 42986-7) Unidentified crystals product advisor [Presence] in Urine sediment by Light microscopy (test code = 5783-6) Crystals [type] in Urine product advisor sediment by Light microscopy (test code = 5782-8) Mucus [Presence] in Urine present not estab. sediment by Light microscopy (test code = 8247-9) Bacteria [#/area] in Urine few none seen/few sediment by Microscopy high power field (test code = 5769-5) Yeast [#/area] in Urine product advisor sediment by Microscopy high power field (test code = 5822-2) Trichomonas vaginalis product advisor [Presence] in Urine sediment by Light microscopy (test code = 5813-1) Urine sediment comments by product advisor Light microscopy Narrative (test code = 50631-6) [facility] GroupLipid 1996 panel - Serum or [id number] 00:00:00 Test Item Value Reference Range Interpretation Comments Cholesterol [Mass/volume] in Serum 175 mg/dL 100-199 or Plasma (test code = 2093-3) Triglyceride [Mass/volume] in Serum 112 mg/dL 0-149 or Plasma (test code = 2571-8) Cholesterol in HDL [Mass/volume] in 67 mg/dL >39 Serum or Plasma (test code = 2085-9) Cholesterol in VLDL [Mass/volume] 22 mg/dL 5-40 in Serum or Plasma by calculation (test code = 44095-2) Cholesterol in LDL [Mass/volume] in 86 mg/dL 0-99 Serum or Plasma by calculation (test code = 64673-2) comment: (test code = comment:) product advisor [facility] GroupThyrotropin [Units/volume] in Serum or Plasma by Detection limit <= 0.005 mIU/[id number] 00:00:00 Test Item Value Reference Range Interpretation Comments Thyrotropin [Units/volume] in 1.840 uIU/mL 0.450-4.500 Serum or Plasma by Detection limit <= 0.005 mIU/L (test code = 45113-6) [facility] GroupHemoglobin A1c [Mass/volume] in [id number] 00:00:00 Test Item Value Reference Range Interpretation Comments Hemoglobin A1c/Hemoglobin.total in 5.6 % 4.8-5.6 Blood (test code = 4548-4) [facility] Groupurinalysis, [id number] 00:00:00 Test Item Value Reference Range Interpretation Comments nti urine tube (cartagena) (test code = comment nti urine tube (cartagena)) [facility] blood [id number] 08:16:00 Test Item Value Reference Range Interpretation Comments [facility] blood collection sent to [facility] (test code = [facility] blood collection) [facility]
[2020-12-17 19:37] VITALS: BMI 18.6
[2020-12-17] MEDS: MONTELUKAST 10 MG TAB PO SCH (20:41)
[2020-12-17] MEDS: MEMANTINE HCL 10 MG TABLET PO SCH (20:41)
[2020-12-17] MEDS: levETIRAcetam 500 MG TAB PO SCH (20:41)
[2020-12-17] MEDS: DONEPEZIL HCL 5 MG TAB PO SCH (20:42)
[2020-12-17] MEDS: DOCUSATE NA 100 MG CAP PO SCH (20:42)
[2020-12-17] MEDS: MELATONIN 3 MG TABLET PO SCH (20:43)
[2020-12-18 06:10] LABS: Absolute Lymphocytes (CBC) 2.3 K/uL (0.7-4.9); Basophils % 1.5 % (0-1.3); Hematocrit 37.5 % (36.0-45.0); Lymphocytes % 33.3 % (15.3-44.8); MPV 8.8 fL (7.6-11.3); RBC Red Blood Cell Count 4.24 M/uL (3.86-4.86)
[2020-12-18 06:21] LABS: Albumin 3.7 g/dL (3.4-5.0); Magnesium 2.5 mg/dL (1.8-2.4); Potassium 3.7 mmol/L (3.5-5.1)
[2020-12-18] MEDS ORDERED: FUROSEMIDE 20 MG TABLET PO SCH (08:00)
[2020-12-18] MEDS: lisinopriL 20 MG TAB PO SCH (08:56)
[2020-12-18] MEDS: DOCUSATE NA 100 MG CAP PO SCH ×2 (08:56→20:14)
[2020-12-18] MEDS: levETIRAcetam 500 MG TAB PO SCH ×2 (08:56→20:14)
[2020-12-18] MEDS: SODIUM CHLORIDE 1 GM TAB PO SCH ×3 (08:56→17:19)
[2020-12-18] MEDS: FUROSEMIDE 20 MG TABLET PO SCH (08:56)
[2020-12-18] MEDS: MEMANTINE HCL 10 MG TABLET PO SCH ×2 (08:56→20:14)
[2020-12-18] MEDS: SERTRALINE HCL 50 MG TAB PO SCH (08:57)
[2020-12-18 16:00] LABS: Urine Appearance CLEAR (Clear); Urine Bilirubin NEGATIVE (Negataive); Urine Blood NEGATIVE (Negative); Urine Color YELLOW (Yellow); Urine Glucose NEGATIVE (Negative); Urine Protein NEGATIVE (Negative); Urine Urobilinogen 0.2 mg/dL (0.2-1.0); Urine pH 5.5 (5.0-7.0)
[2020-12-18] MEDS: ENOXAPARIN 40 MG/0.4 ML SQ SCH (16:32)
[2020-12-18 16:33] LABS: Urine Bacteria <20 /HPF (<20); Urine RBC <5 /HPF (NONE SEEN)
--- NOTE | 2020-12-18 20:12 | R.HP ---
HISTORY AND PHYSICAL FACILITY: [facility] ENCOUNTER DATE AND TIME: 12/18/2020 19:43 (CDT) MR#: [id number] NAME JEN HICKEY ADDRESS: [address] [place] [address] CITY: [place] ZIP [id number] PHONE: DATE OF : 1935 AGE: 85 SSN# [id number] GENDER: Female DEXTERITY Right-handed MARITAL STATUS RACE White PRE-HOSPITAL LIVING SETTING 01 - Home (private home/apt. board/care, assisted living, prison, transitional living) PRE-HOSPITAL LIVING WITH Alone ENCOUNTER PHYSICIAN: Dr. Eloy Blandon M.D. REFERRING DOCTOR: Dr Vasquez DATE OF ADMISSION: 12/17/2020 17:59 (CDT) REFERRING FACILITY [facility] HOME TYPE AND DETAILS: Type of home: single family house # of levels in the residence: 1 # of steps to enter the residence: 0 # of steps within the residence: 0 ONSET DATE: 12/12/2020 PRIMARY DIAGNOSIS-RELATED SURGERIES: No surgeries related to the primary diagnosis were performed recently. HISTORY OF PRESENT ILLNESS (HPI): Pt. is a 85 yo Right-handed white female. On 12/12/2020 Pt. presented to [facility] with sudden onset of right-side weakness. 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 Her impairment category is Stroke 01 - Right Body (Left Brain) (01.2). Pre-morbidly, Pt. was independent/mod-I in Transfers Control, Locomotion, Self-Care, Social Cognition , Sphincter Control, and Communication; and she had good Balance and Safety Awareness. Currently, she has deficits of Transfers Control, Balance, Locomotion, Safety Awareness, Self-Care, a nd Social Cognition. Pt. is now referred to [facility] for acute in-patient rehabilitation in order to maximize patient's functional independence in activities of daily living, strength, ROM, and mobi lity. Patient has realistic goal of being discharged at assistance level 6-Raudel to reside at Home with Gino ozuna. MEDICATION ALLERGIES: No Known Drug Allergies (NKDA) ENVIRONMENTAL ALLERGIES: None Known - Substance Allergies None Known - Other Allergies None Known PAST MEDICAL HISTORY: mild dementia HTN melanoma of left periorbital region Hyponatremia hypocalcemia SOCIAL HISTORY: - Home Living Alone REVIEW OF SYSTEMS: - Gen No Chills Fatigue No Fever - Eyes No Double Vision No itchiness - ENMT Difficulty Swallowing - CVS No Chest Discomfort No Chest Pain Fatigue No Weight Gain - Resp No Cough No Shortness of Breath - GI Continent No Abdominal Pain No Constipation No Diarrhea - Continent No Kidney Pain No Painful Urination No Urinary Urgency - MSK No Joint Pain Muscle Cramps Stiffness - Skin No Itching No Rash No Suspicious Lesions - Neuro Coordination Difficulty Difficulty with Concentration Memory Loss No Seizures Weakness - Psych No Anxiety No Depression No HIV Exposure No Persistent Infections No Seasonal Allergies - Endo No Cold/Heat Intolerance No Excessive Hunger No Excessive Thirst No Excessive Urination PHYSICAL EXAM - Gen Alert and awake Lying in bed No apparent distress Oriented to: person, time, and place - Vital Signs Vital signs stable, afebrile - Skin No breakdown Bruising noted on forehead and bridge of the nose. - Eyes No abnormalities - ENMT No abnormalities - Neck No abnormalities - CVS RRR - Chest No abnormalities - Resp Clear to auscultation - Abd + bowel sounds - GI Soft Deferred - No abnormalities - Ext No significant edema - MSK 4+/5 weakness in right upper and lower extremities - Neuro 4/5 strength right upper and lower extremities. - Psych No abnormalities VITAL SIGNS Temperature: 98.7 F SBP/DBP: 169/80 Pulse: 67 Resp: 16 NURSING: - Shower allowing shower - Bladder care per protocol - Skin care per protocol PRECAUTIONS: - Weight Bearing Precaution WBAT left LE ACTIVITIES OOB only with supervision QI SCORES: - Self-Care A. Eating 04-Supervision or touching assistance B. Oral hygiene 04-Supervision or touching assistance C. Toileting hygiene 03-Partial/moderate assistance E. Shower/bathe self 02-Substantial/maximal assistance F. Upper body dressing 02-Substantial/maximal assistance G. Lower body dressing 01-Dependent H. Putting on/taking off footwear 01-Dependent - Mobility A. Roll left and right 03-Partial/moderate assistance B. Sit to lying 03-Partial/moderate assistance C. Lying to sitting on side of bed 03-Partial/moderate assistance D. Sit to stand 03-Partial/moderate assistance E. Chair/zqg-bn-lwxky transfer 03-Partial/moderate assistance F. Toilet transfer 03-Partial/moderate assistance G. Car transfer 88-Not attempted due to medical condition or safety concerns I. Walk 10 feet 04-Supervision or touching assistance J. Walk 50 feet with two turns 04-Supervision or touching assistance K. Walk 150 feet 04-Supervision or touching assistance L. Walking 10 feet on uneven surfaces 88-Not attempted due to medical condition or safety concerns M. 1 step (curb) 88-Not attempted due to medical condition or safety concerns N. 4 steps 88-Not attempted due to medical condition or safety concerns O. 12 steps 88-Not attempted due to medical condition or safety concerns P. Picking up object 88-Not attempted due to medical condition or safety concerns - Endurance Poor - Balance Poor - Safety Awareness Poor CURRENT FUNC. DEFICITS: Self-Care, Mobility, Endurance, Balance, and Safety Awareness MEDICATIONS: - Other See attached MAR (Medication Administration Record) ASSESSMENT: Pt. is a 85 yo Right-handed white female.On 12/12/2020 Pt. presented to [facility] with sudde n onset of right-side weakness.On 12/12/2020 she was admitted to [facility] with diagnosis Tr aumatic subarachnoid hemm. with loss of consciousness .Her impairment category is Stroke 01 - Right Body (Left Brain) (01.2).Pre-morbidly, Pt. was independent/mod-I in Transfers Control, Locomotion, Se lf-Care, Social Cognition, Sphincter Control, and Communication; and she had good Balance and Safety Awareness.Currently, she has deficits of Transfers Control, Balance, Locomotion, Safety Awareness, Se lf-Care, and Social Cognition.Pt. is now [facility] in order to maximize patient's functional independence in activities of daily l iving, strength, ROM, and mobility.- Rehab Goal Patient has realistic goal of being discharged at assistance level 6-Raudel to reside at Home with Gino ozuna. REHAB PLAN: for Dementia, TBI, Stroke, or others - Physical Therapy Decreased range of motion - to improve, our physical therapists will perform initial evaluation of pt 's status upon admission and devise an individualized program for increasing patient's Range of Motio n. Gait dysfunction - to improve, our physical therapists will perform initial evaluation of pt's status upon admission and devise an individualized program for Gait Training, and Wheel Chair mobility Inability to transfer - to improve, our physical therapists will perform initial evaluation of pt's s tatus upon admission and devise an individualized program for Bed mobility Need for home safety evaluation - to improve, our physical therapists will perform initial evaluation of pt's status upon admission and devise an individualized program for Home Evaluation Need in caregiver upon discharge - to improve, our physical therapists will perform initial evaluatio n of pt's status upon admission and devise an individualized program for Caregiver Training Edema - to improve, our physical therapists will perform initial evaluation of pt's status upon admi ssion and devise an individualized program for Elevation Training, and Lymphedema Therapy New precaution - to improve, our physical therapists will perform initial evaluation of pt's status u jus admission and devise an individualized program for Patient precaution education Poor balance - to improve, our physical therapists will perform initial evaluation of pt's status upo n admission and devise an individualized program for Balance Training Weakness - to improve, our physical therapists will perform initial evaluation of pt's status upon ad mission and devise an individualized program for Aquatic Therapy, Neuromuscular Reeducation, and Stre ngthening Achieving independence - to improve, our physical therapists will perform initial evaluation of pt's status upon admission and devise an individualized program for Community Reintegration Activities - Occupational Therapy ADL deficits - to improve, our occupation therapists will perform initial evaluation of pt's status u jus admission and devise an individualized program for Bathing, Bed mobility, Community Reintegration , Cooking, Dressing, Eating, Fine Motor Skills, Grooming, Homemaking, Kitchen Mobility, Laundry, Nicole ent Education, Safety Awareness, Splinting - Positioning, Transfers(Toilet, Tub, Shower), and Wheel C hair Management Cognitive deficits - to improve, our occupation therapists will perform initial evaluation of pt's st atus upon admission and devise an individualized program for Cognition - orientation Need for senior care manager - to improve, our occupation therapists will perform initial evaluation of pt's s tatus upon admission and devise an individualized program for Caregiver Training Weakness - to improve, our occupation therapists will perform initial evaluation of pt's status upon admission and devise an individualized program for Aquatic Therapy, Balance, Endurance, UE ROM, and U E strengthening MEDICAL PLAN: - Diet Type Start Regular - Diet - Liquid Texture Start Regular - Tube Feed Start N/A - Bladder care per protocol - Weight Bearing Precaution WBAT right LE - Skin care per protocol - Other See attached MAR (Medication Administration Record) - Diet - Solid Texture Regular - Shower shower DISCHARGE PLAN: - Estimated Length of Stay (days) 12. - Consensus on plan Discharge plan has been discussed with primary caregiver. Primary caregiver is in agreement with the plan. - Planned Living Setting Upon Discharge Primary caregiver: Daughter. SIGNATURE PANEL: (CDT)
--- NOTE | 2020-12-18 20:13 | PAPE ---
POST ADMISSION PHYSICIAN EVALUATION PATIENT: [facility] MR# [id number] REFERRING DOCTOR Dr Vasquez EVALUATION DATE AND TIME 12/18/2020 20:11 (CDT) NAME JEN HICKEY DATE OF 1935 AGE 85 PHONE SSN# [id number] GENDER female EVALUATING PHYSICIAN Dr. Eloy Blandon M.D. 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 PATIENT NEEDS CLOSE MEDICAL SUPERVISION BY A REHABILITATION PHYSICIAN FOR: Coordination of Treatment Team Wound Care PATIENT REQUIRES 24X7 REHAB NURSING FOR MEDICAL AND FUNCTIONAL MGT. OF THE FOLLOWING DEFICITS: Disease Management Medication Management Patient/Family Education Providing Safe Environment Skin Integrity PATIENT REQUIRES INTENSIVE, COORDINATED INTERDISCIPLINARY APPROACH TO REHAB: Arranging Home Equipment/Services Discharge Planning Family Intervention/Training Bar Back/Case Management LIST OF IDENTIFIED AND POTENTIAL PROBLEMS: Alteration in leisure activities Infection, Actual or Potential Mobility Impaired Pain, Alteration in Comfort Self Care Deficit Skin Integrity, Actual or Potential Urinary Tract Infection (UTI), Actual or Potential PATIENT COULD BE AT RISK FOR COMPLICATIONS FROM ADVERSE MEDICAL CONDITIONS DUE TO HIS/HER COMORBIDITI ES AND THE RIGORS OF THE INTENSIVE REHABILLITATION PROGRAM. METHODS OR INTERVENTIONS TO AVOID COMPLIC ATIONS INCLUDE: - Bleeding Assess lab values and manage abnormalities. Nursing to teach precautions for anti-coagulation therapy . Stroke patients assessed for lethargy or change in status. Wound to be assessed every shift. - Infection Clinical staff to assess and manage the signs and symptoms of infection including fever, redness, war mth, etc. - Urinary Tract Infection - Aspiration Clinical staff will assess and manage coughing, drooling, congestion. - Falls Patient will be evaluated for Fall Precautions and will be placed on Fall Precautions as indicated pe r protocol. - Skin Breakdown Nursing will assess skin daily using assessment tool and will place on Skin Breakdown Precautions as indicated per protocol. - Pain Clinical staff may employ non-medication methods such as massage, distraction, decrease stimulus, etc . as needed. Clinical staff will assess patient's pain level every shift per protocol to assess and e nsure pain management effectiveness. Medications will be given and the pain level re-assessed. PRELIMINARY PLAN OF CARE: - Physical Therapy Patient needs Physical Therapy for a daily minimum of 1.5 hours at least 5 out of 7 days, to improve: Mobility, Strengthening, Transfers, Stretching, ROM, Endurance, Ability to manage stairs, Gait, and Balance. - Speech Therapy Patient needs Speech Therapy for a daily minimum of 0.5 hours at least 5 out of 7 days, to improve: S wallowing, Cognition, Language Skills, and Compensatory Strategies. - Rehabilitation Nursing Patient requires 24x7 Rehabilitation Nursing for: Pain Issues, Identifying and preventing risk factor s, Monitoring and reporting current medical conditions, Assisting with ambulation and transfer, Abdoulaye ting with all ADL-s, Teaching patients about disease process and medications, Family teaching, Provid ing safe environment, Bowel and Bladder Issues, Skin Integrity, and Medication Management. Patient needs Bar Back and/or Case Management for: Discharge Planning, Arranging Home Equipmen t or Services, and Family Interventions. - Dietary and Nutrition Services Patient needs Dietary and Nutrition Services for: Adequate Nutrition, Nutritional Supplements, and Nu tritional Education. - Occupational Therapy Patient needs Occupational Therapy for a daily minimum of 1.5 hours at least 5 out of 7 days, to impr ove Activities of Daily Living, including: Eating, Grooming, Bathing, Dressing, Toileting, Toilet Tra nsfers, Community Reintegration, Higher functional activities, Adaptive Equipment, Splinting, Househo ld Tasks, and Other activities as determined. QI SCORES: - Self-Care A. Eating 04-Supervision or touching assistance B. Oral hygiene 04-Supervision or touching assistance C. Toileting hygiene 03-Partial/moderate assistance E. Shower/bathe self 02-Substantial/maximal assistance F. Upper body dressing 02-Substantial/maximal assistance G. Lower body dressing 01-Dependent H. Putting on/taking off footwear 01-Dependent - Mobility A. Roll left and right 03-Partial/moderate assistance B. Sit to lying 03-Partial/moderate assistance C. Lying to sitting on side of bed 03-Partial/moderate assistance D. Sit to stand 03-Partial/moderate assistance E. Chair/exz-ni-geotl transfer 03-Partial/moderate assistance F. Toilet transfer 03-Partial/moderate assistance G. Car transfer 88-Not attempted due to medical condition or safety concerns I. Walk 10 feet 04-Supervision or touching assistance J. Walk 50 feet with two turns 04-Supervision or touching assistance K. Walk 150 feet 04-Supervision or touching assistance L. Walking 10 feet on uneven surfaces 88-Not attempted due to medical condition or safety concerns M. 1 step (curb) 88-Not attempted due to medical condition or safety concerns N. 4 steps 88-Not attempted due to medical condition or safety concerns O. 12 steps 88-Not attempted due to medical condition or safety concerns P. Picking up object 88-Not attempted due to medical condition or safety concerns - Endurance Poor - Balance Poor - Safety Awareness Poor POTENTIAL FUNCTIONAL GOALS FOR PATIENT TO ACHIEVE BY DISCHARGE: - Safety Precaution Patient will remain free from falls or injury at time of discharge. - Bed Mobility Patient will perform bed mobility at 4-Maria G level of assistance. - Transfers Patient will complete transfers from bed to chair at 4-Maria G level of assistance. - Mobility Patient will ambulate 150 ft with 4-Maria G level of assistance with RW. PATIENT REHAB POTENTIAL Kadie ELI is able and expected to receive 3 hours of individualized therapy daily on at least 5 of every 7 days Kadie TOs prognosis for significant practical improvement within a reasonable period of shelly e appears Good Expected level of measurable improvement will be of a practical value to Kadie ELI's function al capacity or adaptations to impairments Has a viable Discharge Plan Medically appropriate; condition is sufficiently stable to participate in intensive rehab program DISCHARGE PLAN: - Estimated Length of Stay (days) 12. - Consensus on plan Discharge plan has been discussed with primary caregiver. Primary caregiver is in agreement with the plan. - Planned Living Setting Upon Discharge Primary caregiver: Daughter. CONCLUSION ON REHABILITATION NECESSITY: I have evaluated patient's pre-admission functional status and, comparing it to the patient's post-ad mission functional status now, I conclude that the pre-admission assessment was accurate. Patient's c ondition on admission supports the medical necessity of admission to IRF. It is safe to proceed with patient's therapy program. SIGNATURE PANEL: (CDT)
[2020-12-18] MEDS: MELATONIN 3 MG TABLET PO SCH (20:14)
[2020-12-18] MEDS: ENSURE ENLIVE 237 ML CAN PO SCH (20:14)
[2020-12-18] MEDS: DONEPEZIL HCL 5 MG TAB PO SCH (20:14)
[2020-12-18] MEDS: MONTELUKAST 10 MG TAB PO SCH (20:14)
[2020-12-19] MEDS: ACETAMINOPHEN 325 MG TABLET PO PRN (08:09)
[2020-12-19] MEDS: MEMANTINE HCL 10 MG TABLET PO SCH ×2 (08:10→20:16)
[2020-12-19] MEDS: SERTRALINE HCL 50 MG TAB PO SCH (08:10)
[2020-12-19] MEDS: levETIRAcetam 500 MG TAB PO SCH ×2 (08:10→20:16)
[2020-12-19] MEDS: lisinopriL 20 MG TAB PO SCH (08:10)
[2020-12-19] MEDS: DOCUSATE NA 100 MG CAP PO SCH ×2 (08:10→20:16)
[2020-12-19] MEDS: FUROSEMIDE 20 MG TABLET PO SCH (08:11)
[2020-12-19] MEDS: ENSURE ENLIVE 237 ML CAN PO SCH ×2 (08:12→20:16)
[2020-12-19] MEDS: ENOXAPARIN 40 MG/0.4 ML SQ SCH (16:14)
[2020-12-19] MEDS: DONEPEZIL HCL 5 MG TAB PO SCH (20:16)
[2020-12-19] MEDS: MELATONIN 3 MG TABLET PO SCH (20:16)
[2020-12-19] MEDS: MONTELUKAST 10 MG TAB PO SCH (20:16)
[2020-12-20] MEDS: ACETAMINOPHEN 325 MG TABLET PO PRN (07:48)
[2020-12-20] MEDS: MEMANTINE HCL 10 MG TABLET PO SCH ×2 (07:48→20:01)
[2020-12-20] MEDS: SERTRALINE HCL 50 MG TAB PO SCH (07:49)
[2020-12-20] MEDS: lisinopriL 20 MG TAB PO SCH (07:49)
[2020-12-20] MEDS: FUROSEMIDE 20 MG TABLET PO SCH (07:49)
[2020-12-20] MEDS: DOCUSATE NA 100 MG CAP PO SCH ×2 (07:49→20:01)
[2020-12-20] MEDS: levETIRAcetam 500 MG TAB PO SCH ×2 (07:50→20:01)
[2020-12-20] MEDS: ENSURE ENLIVE 237 ML CAN PO SCH ×2 (07:51→20:01)
--- NOTE | 2020-12-20 09:45 | P.RH.PN ---
Estimated Length of Stay: 14 Expected Discharge Date: 12/30/20 Vital Signs: Last Vital Signs Temp 98.7 F 12/20/20 07:36 Pulse 78 12/20/20 07:49 Resp 16 12/20/20 07:36 BP 168/68 H 12/20/20 07:49 Pulse Ox 97 12/20/20 07:36 Laboratory: Laboratory Last Values WBC 6.90 K/uL (4.3-10.9) 12/18/20 05:48 RBC 4.24 M/uL (3.86-4.86) 12/18/20 05:48 Hgb 12.7 g/dL (12.0-15.0) 12/18/20 05:48 Hct 37.5 % (36.0-45.0) 12/18/20 05:48 MCV 88.4 fL (80-100) 12/18/20 05:48 MCH 29.9 pg (27.0-35.0) 12/18/20 05:48 MCHC 33.9 g/dL (32.0-36.0) 12/18/20 05:48 RDW 13.9 % (12.1-15.2) 12/18/20 05:48 Plt Count 214 K/uL (152-406) 12/18/20 05:48 MPV 8.8 fL (7.6-11.3) 12/18/20 05:48 Neutrophils % 52.9 % (41.7-73.7) 12/18/20 05:48 Lymphocytes % 33.3 % (15.3-44.8) 12/18/20 05:48 Monocytes % 9.9 % (3.3-12.3) 12/18/20 05:48 Eosinophils % 2.4 % (0-4.4) 12/18/20 05:48 Basophils % 1.5 % (0-1.3) H 12/18/20 05:48 Absolute Neutrophils 3.7 K/uL (1.8-8.0) 12/18/20 05:48 Absolute Lymphocytes 2.3 K/uL (0.7-4.9) 12/18/20 05:48 Absolute Monocytes 0.7 K/uL (0.1-1.3) 12/18/20 05:48 Absolute Eosinophils 0.2 K/uL (0-0.5) 12/18/20 05:48 Absolute Basophils 0.1 K/uL (0-0.5) 12/18/20 05:48 Sodium 140 mmol/L (136-145) 12/18/20 05:48 Potassium 3.7 mmol/L (3.5-5.1) 12/18/20 05:48 Chloride 105 mmol/L (98-107) 12/18/20 05:48 Carbon Dioxide 30 mmol/L (21-32) 12/18/20 05:48 BUN 21 mg/dL (7-18) H 12/18/20 05:48 Creatinine 0.77 mg/dL (0.55-1.3) 12/18/20 05:48 Estimated GFR 71 mL/min (=/>90) L 12/18/20 05:48 Glucose 98 mg/dL (74-106) 12/18/20 05:48 Calcium 9.3 mg/dL (8.5-10.1) 12/18/20 05:48 Magnesium 2.5 mg/dL (1.8-2.4) H 12/18/20 05:48 Albumin 3.7 g/dL (3.4-5.0) 12/18/20 05:48 Prealbumin 24.0 mg/dL (20-40) 12/18/20 05:48 Urine Color Yellow (Yellow) 12/18/20 14:45 Urine Appearance Clear (Clear) 12/18/20 14:45 Urine pH 5.5 (5.0-7.0) 12/18/20 14:45 Ur Specific [place] 1.010 (1.005-1.030) 12/18/20 14:45 Glucose (UA)(Auto) Negative (Negative) 12/18/20 14:45 Urine Ketones Negative (Negative) 12/18/20 14:45 Urine Blood Negative (Negative) 12/18/20 14:45 Urine Nitrite Negative (Negative) 12/18/20 14:45 Urine Bilirubin Negative (Negataive) 12/18/20 14:45 Urine Urobilinogen 0.2 mg/dL (0.2-1.0) 12/18/20 14:45 Ur Leukocyte Esterase Negative (Negative) 12/18/20 14:45 Urine RBC <5 /HPF (NONE SEEN) 12/18/20 14:45 Urine WBC <5 /HPF (<5) 12/18/20 14:45 Ur Squamous Epith Cells <5 /HPF (NONE SEEN) 12/18/20 14:45 Urine Bacteria <20 /HPF (<20) 12/18/20 14:45 Urine Culture Reflexed Not needed 12/18/20 14:45 Urine Total Protein Negative (Negative) 12/18/20 14:45 SARS-CoV-2 RNA (RT-PCR) Negative (NEGATIVE) 12/17/20 18:40 Weight: 115 lb Wound Present: No Closed Surgical Incision Present: No Negative Pressure Wound Therapy Present: No Physician Update: She has moderate cognitive impairment with MOCA 17/30. Needs queing for ADLs due to poor memory and information processing. Walked 140' with minimum assistance but required reminding about proper gait. Up and down 5 stairs with contact guard assistance. She will require more than 9 days of therapy. We recommend 2 weeks. Her daughter lives next door but she will require someone at home for the initial weeks at least. Labs are stable. Summary: Patient's care plan and salvage determiner goals have been reviewed and revised as necessary. Please see the Rehabilitation Signature page for all necessary signatures.
[2020-12-20] MEDS: ENOXAPARIN 40 MG/0.4 ML SQ SCH (17:11)
[2020-12-20] MEDS: MONTELUKAST 10 MG TAB PO SCH (20:00)
[2020-12-20] MEDS: MELATONIN 3 MG TABLET PO SCH (20:01)
[2020-12-20] MEDS: DONEPEZIL HCL 5 MG TAB PO SCH (20:01)
[2020-12-21] MEDS: DOCUSATE NA 100 MG CAP PO SCH ×2 (08:56→20:22)
[2020-12-21] MEDS: SERTRALINE HCL 50 MG TAB PO SCH (08:56)
[2020-12-21] MEDS: levETIRAcetam 500 MG TAB PO SCH ×2 (08:56→20:22)
[2020-12-21] MEDS: MEMANTINE HCL 10 MG TABLET PO SCH ×2 (08:57→20:22)
[2020-12-21] MEDS: FUROSEMIDE 20 MG TABLET PO SCH (08:57)
[2020-12-21] MEDS: ACETAMINOPHEN 325 MG TABLET PO PRN ×2 (08:58→20:21)
[2020-12-21] MEDS: lisinopriL 20 MG TAB PO SCH (08:58)
[2020-12-21 09:22] LABS: Basophils % 0.8 % (0-1.3); Hematocrit 36.6 % (36.0-45.0); Lymphocytes % 14.7 % (15.3-44.8); MPV 8.7 fL (7.6-11.3); RBC Red Blood Cell Count 4.11 M/uL (3.86-4.86)
[2020-12-21 09:37] LABS: Potassium 3.9 mmol/L (3.5-5.1)
[2020-12-21] MEDS: ENSURE ENLIVE 237 ML CAN PO SCH ×2 (10:48→20:00)
[2020-12-21] MEDS: ENOXAPARIN 40 MG/0.4 ML SQ SCH (16:00)
[2020-12-21] MEDS: DONEPEZIL HCL 5 MG TAB PO SCH (20:22)
[2020-12-21] MEDS: MONTELUKAST 10 MG TAB PO SCH (20:22)
[2020-12-21] MEDS: MELATONIN 3 MG TABLET PO SCH (20:23)
[2020-12-22] MEDS: levETIRAcetam 500 MG TAB PO SCH ×2 (08:22→19:33)
[2020-12-22] MEDS: DOCUSATE NA 100 MG CAP PO SCH ×2 (08:22→19:32)
[2020-12-22] MEDS: SERTRALINE HCL 50 MG TAB PO SCH (08:23)
[2020-12-22] MEDS: MEMANTINE HCL 10 MG TABLET PO SCH ×2 (08:23→19:31)
[2020-12-22] MEDS: lisinopriL 20 MG TAB PO SCH (08:23)
[2020-12-22] MEDS: FUROSEMIDE 20 MG TABLET PO SCH (08:24)
[2020-12-22] MEDS: ENSURE ENLIVE 237 ML CAN PO SCH ×2 (08:25→19:33)
[2020-12-22] MEDS: ENOXAPARIN 40 MG/0.4 ML SQ SCH (16:17)
--- NOTE | 2020-12-22 16:17 | RAD REPORT ---
EXAM DESCRIPTION: RAD - Chest Single View - 12/22/2020 3:36 pm CLINICAL HISTORY: increase coughing Chest pain. COMPARISON: No comparisons FINDINGS: Portable technique limits examination quality. The lungs are emphysematous but grossly clear. The heart is normal in size. No displaced fractures. IMPRESSION: No acute intrathoracic process suspected.
[2020-12-22] MEDS: guaiFENesin 100 MG/5 ML UCUP PO PRN (19:31)
[2020-12-22] MEDS: DONEPEZIL HCL 5 MG TAB PO SCH (19:32)
[2020-12-22] MEDS: MONTELUKAST 10 MG TAB PO SCH (19:32)
[2020-12-22] MEDS: ACETAMINOPHEN 325 MG TABLET PO PRN (19:32)
[2020-12-22] MEDS: MELATONIN 3 MG TABLET PO SCH (19:32)
[2020-12-22] MEDS: REFRESH PM OPTH SCH (19:33)
[2020-12-22] MEDS: REFRESH PLUS OPTH SCH (19:33)
[2020-12-23] MEDS: guaiFENesin 100 MG/5 ML UCUP PO PRN ×2 (01:47→22:52)
[2020-12-23] MEDS: ACETAMINOPHEN 325 MG TABLET PO PRN (07:51)
[2020-12-23] MEDS: FUROSEMIDE 20 MG TABLET PO SCH (07:52)
[2020-12-23] MEDS: levETIRAcetam 500 MG TAB PO SCH ×2 (07:53→20:59)
[2020-12-23] MEDS: DOCUSATE NA 100 MG CAP PO SCH ×2 (07:53→20:59)
[2020-12-23] MEDS: ENSURE ENLIVE 237 ML CAN PO SCH ×2 (07:53→20:00)
[2020-12-23] MEDS: MEMANTINE HCL 10 MG TABLET PO SCH ×2 (07:53→21:00)
[2020-12-23] MEDS: lisinopriL 20 MG TAB PO SCH (07:53)
[2020-12-23] MEDS: SERTRALINE HCL 50 MG TAB PO SCH (07:53)
[2020-12-23] MEDS: REFRESH PLUS OPTH SCH ×3 (08:00→20:00)
[2020-12-23] MEDS: BENZONATATE 100 MG CAP PO PRN (14:34)
--- NOTE | 2020-12-23 16:33 | FAST ---
[employer] FORM SHIFT START DATE/TIME: 12/23/2020 07:00 (CDT) SHIFT END DATE/TIME: 12/23/2020 19:00 (CDT) NAME JEN HICKEY DATE OF : 1935 DATE OF ADMISSION: 12/17/2020 17:59 (CDT) PHONE: AGE: 85 N# [id number] GENDER: Female ENCOUNTER PHYSICIAN: Dr. Eloy Blandon M.D. 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 - Orthopaedic Disorders 08 - Other Orthopaedic (08.9) frontal bilateral nasal fractures. EATING: EATING - STEP 1: Does the patient complete the activity by him/herself with no assistance (physical, verbal/nonverbal cueing, setup/clean-up)? No. EATING - STEP 2: Does the patient need only setup/clean-up assistance from one helper? Yes. 1. [id number] ADMISSION PERFORMANCE: Setup or clean-up assistance CODE: 05 ORAL HYGIENE: ORAL HYGIENE - STEP 1: Does the patient complete the activity by him/herself with no assistance (physical, verbal/nonverbal cueing, setup/clean-up)? No. ORAL HYGIENE - STEP 2: Does the patient need only setup/clean-up assistance from one helper? Yes. 1. [id number] ADMISSION PERFORMANCE: Setup or clean-up assistance CODE: 05 TOILETING HYGIENE: TOILETING HYGIENE - STEP 1: Does the patient complete the activity by him/herself with no assistance (physical, verbal/nonverbal cueing, setup/clean-up)? No. TOILETING HYGIENE - STEP 2: Does the patient need only setup/clean-up assistance from one helper? Yes. 1. [id number] ADMISSION PERFORMANCE: Setup or clean-up assistance CODE: 05 BATHING: Not assessed/no information CODE: - DRESSING - UPPER BODY: DRESSING - UPPER BODY - STEP 1: Does the patient complete the activity by him/herself with no assistance (physical, verbal/nonverbal cueing, setup/clean-up)? No. DRESSING - UPPER BODY - STEP 2: Does the patient need only setup/clean-up assistance from one helper? Yes. 1. [id number] ADMISSION PERFORMANCE: Setup or clean-up assistance CODE: 05 DRESSING - LOWER BODY: DRESSING - LOWER BODY - STEP 1: Does the patient complete the activity by him/herself with no assistance (physical, verbal/nonverbal cueing, setup/clean-up)? No. DRESSING - LOWER BODY - STEP 2: Does the patient need only setup/clean-up assistance from one helper? No. DRESSING - LOWER BODY - STEP 3: Does the patient need only verbal/nonverbal cueing or touching/steadying/contact guard assistance fro m one helper? Yes. 1. [id number] ADMISSION PERFORMANCE: Supervision or touching assistance CODE: 04 PUTTING ON/TAKING OFF FOOTWEAR: FOOTWEAR - STEP 1: Does the patient complete the activity by him/herself with no assistance (physical, verbal/nonverbal cueing, setup/clean-up)? No. FOOTWEAR - STEP 2: Does the patient need only setup/clean-up assistance from one helper? No. FOOTWEAR - STEP 3: Does the patient need only verbal/nonverbal cueing or touching/steadying/contact guard assistance fro m one helper? Yes. 1. [id number] ADMISSION PERFORMANCE: Supervision or touching assistance CODE: 04 ROLL LEFT AND RIGHT: ROLL LEFT AND RIGHT - STEP 1: Does the patient complete the activity by him/herself with no assistance (physical, verbal/nonverbal cueing, setup/clean-up)? No. ROLL LEFT AND RIGHT - STEP 2: Does the patient need only setup/clean-up assistance from one helper? No. ROLL LEFT AND RIGHT - STEP 3: Does the patient need only verbal/nonverbal cueing or touching/steadying/contact guard assistance fro m one helper? Yes. 1. [id number] ADMISSION PERFORMANCE: Supervision or touching assistance CODE: 04 SIT TO LYING: SIT TO LYING - STEP 1: Does the patient complete the activity by him/herself with no assistance (physical, verbal/nonverbal cueing, setup/clean-up)? No. SIT TO LYING - STEP 2: Does the patient need only setup/clean-up assistance from one helper? No. SIT TO LYING - STEP 3: Does the patient need only verbal/nonverbal cueing or touching/steadying/contact guard assistance fro m one helper? Yes. 1. [id number] ADMISSION PERFORMANCE: Supervision or touching assistance CODE: 04 LYING TO SITTING: LYING TO SITTING ON SIDE OF BED - STEP 1: Does the patient complete the activity by him/herself with no assistance (physical, verbal/nonverbal cueing, setup/clean-up)? No. LYING TO SITTING ON SIDE OF BED - STEP 2: Does the patient need only setup/clean-up assistance from one helper? No. LYING TO SITTING ON SIDE OF BED - STEP 3: Does the patient need only verbal/nonverbal cueing or touching/steadying/contact guard assistance fro m one helper? Yes. 1. [id number] ADMISSION PERFORMANCE: Supervision or touching assistance CODE: 04 SIT TO STAND: SIT TO STAND - STEP 1: Does the patient complete the activity by him/herself with no assistance (physical, verbal/nonverbal cueing, setup/clean-up)? No. SIT TO STAND - STEP 2: Does the patient need only setup/clean-up assistance from one helper? No. SIT TO STAND - STEP 3: Does the patient need only verbal/nonverbal cueing or touching/steadying/contact guard assistance fro m one helper? Yes. 1. [id number] ADMISSION PERFORMANCE: Supervision or touching assistance CODE: 04 TRANSFERS: BED, CHAIR: CHAIR/XAH-ME-HVIYM TRANSFER - STEP 1: Does the patient complete the activity by him/herself with no assistance (physical, verbal/nonverbal cueing, setup/clean-up)? No. CHAIR/[id number] TRANSFER - STEP 2: Does the patient need only setup/clean-up assistance from one helper? No. CHAIR/ZTW-[id number]-HHRAM TRANSFER - STEP 3: Does the patient need only verbal/nonverbal cueing or touching/steadying/contact guard assistance fro m one helper? Yes. 1. [id number] ADMISSION PERFORMANCE: Supervision or touching assistance CODE: 04 TRANSFER TOILET: TOILET TRANSFER - STEP 1: Does the patient complete the activity by him/herself with no assistance (physical, verbal/nonverbal cueing, setup/clean-up)? No. TOILET TRANSFER - STEP 2: Does the patient need only setup/clean-up assistance from one helper? Yes. 1. [id number] ADMISSION PERFORMANCE: Setup or clean-up assistance CODE: 05 TRANSFERS: CAR: Not assessed/no information CODE: - WALK 10 FEET: Not assessed/no information CODE: - 1 STEP (CURB): Not assessed/no information CODE: - PICKING UP OBJECT: Not assessed/no information CODE: - DOES THE PATIENT USE A WHEELCHAIR/SCOOTER? Q1. DOES THE PATIENT USE A WHEELCHAIR/SCOOTER?: Yes CODE: 1 WHEEL 50 FEET WITH TWO TURNS: WHEEL 50 FEET WITH TWO TURNS - STEP 1: Does the patient complete the activity by him/herself with no assistance (physical, verbal/nonverbal cueing, setup/clean-up)? No. WHEEL 50 FEET WITH TWO TURNS - STEP 2: Does the patient need only setup/clean-up assistance from one helper? No. WHEEL 50 FEET WITH TWO TURNS - STEP 3: Does the patient need only verbal/nonverbal cueing or touching/steadying/contact guard assistance fro m one helper? Yes. 1. [id number] ADMISSION PERFORMANCE: Supervision or touching assistance CODE: 04 INDICATE THE TYPE OF WHEELCHAIR/SCOOTER USED: RR1. INDICATE THE TYPE OF WHEELCHAIR/SCOOTER USED.: Manual CODE: 1 WHEEL 150 FEET: WHEEL 150 FEET - STEP 1: Does the patient complete the activity by him/herself with no assistance (physical, verbal/nonverbal cueing, setup/clean-up)? No. WHEEL 150 FEET - STEP 2: Does the patient need only setup/clean-up assistance from one helper? No. WHEEL 150 FEET - STEP 3: Does the patient need only verbal/nonverbal cueing or touching/steadying/contact guard assistance fro m one helper? Yes. 1. [id number] ADMISSION PERFORMANCE: Supervision or touching assistance CODE: 04 INDICATE THE TYPE OF WHEELCHAIR/SCOOTER USED: SS1. INDICATE THE TYPE OF WHEELCHAIR/SCOOTER USED.: Manual CODE: 1 BLADDER AND BOWEL: H350. BLADDER CONTINENCE (3-DAY ASSESSMENT PERIOD): Stress incontinence only CODE: 1 H400. BOWEL CONTINENCE (3-DAY ASSESSMENT PERIOD): Always continent CODE: 0 SIGNATURE PANEL: The following modified sections: 1. [id number] Admission Performance, 1. [id number] Admission Performance, 1. [id number] Admission Performance, 1. [id number] Admission Performance, 1. BS7301v Admission Performance, 1. [id number] Admission Performance, 1. [id number] Admission Performance, 1. [id number] Admission Performance , 1. [id number] Admission Performance, 1. [id number] Admission Performance, 1. [id number] Admission Performanc e, 1. [id number] Admission Performance, Q1. Does the patient use a wheelchair/scooter?, 1. [id number] Admis ashwini Performance, RR1. Indicate the type of wheelchair/scooter used., 1. [id number] Admission Performanc e, Code, SS1. Indicate the type of wheelchair/scooter used., H350. Bladder Continence (3-day assessme nt period), H400. Bowel Continence (3-day assessment period) were [electronically] signed by Jessi Pandey, C.N.ADelicia on WedDec 23 2020 16:31:33 GMT-0500 (Central Daylight Time)
[2020-12-23] MEDS: ENOXAPARIN 40 MG/0.4 ML SQ SCH (17:20)
--- NOTE | 2020-12-23 18:01 | R.PN ---
PROGRESS NOTES ENCOUNTER DATE AND TIME: 12/23/2020 17:56 (CDT) NAME JEN HICKEY DATE OF : 1935 DATE OF ADMISSION: 12/17/2020 17:59 (CDT) Traumatic subarachnoid hemm. with loss of consciousness frontal bilateral nasal fracturesCHIEF COMPLA INT: Stroke SUBJECTIVE: Pt denied any depression. Pt denied any Shortness of Breath. Ambulated 420' with contact guard assistance using a rolling walker. Labs were reviewed and are stable. UA is negative. WBC 6.5, Hgb 11.9, prealbumin 24.0, Film Or Tape Librarian 0.85, UA normal. COVID-19 negative. Ambulated 390' with contact guard to standby assistance using a rolling walker. Up and down 5 steps w ith minimum assistance. VITAL SIGNS Temperature: 99.4 F 4SBP/DBP: 154/81 Pulse: 80 Resp: 16 MEDICATION ALLERGIES: No Known Drug Allergies (NKDA) ENVIRONMENTAL ALLERGIES: None Known - Substance Allergies None Known - Other Allergies None Known NURSING: - Shower allowing shower - Bladder care per protocol - Skin care per protocol PRECAUTIONS: - Weight Bearing Precaution WBAT left LE ACTIVITIES OOB only with supervision THERAPIES: - Occupational Therapy Cognitive Retraining. Visual Perceptual Training. - Dietary and Nutrition Adequate Nutrition. Nutritional Education. Nutritional Supplements. - Speech Therapy Cognitive Training. Expressive Language Skills. Memory Strategies. Receptive Language Skills. Speech Intelligibility Training. PHYSICAL EXAM - Gen Alert and awake Lying in bed No apparent distress Oriented to: person, time, and place - Vital Signs Vital signs stable, afebrile - Skin No breakdown Bruising noted on forehead and bridge of the nose. - Eyes No abnormalities - ENMT No abnormalities - Neck No abnormalities - CVS RRR - Chest No abnormalities - Resp Clear to auscultation - Abd + bowel sounds - GI Soft Deferred - No abnormalities - Ext No significant edema - MSK 4+/5 weakness in right upper and lower extremities - Neuro 4/5 strength right upper and lower extremities. - Psych No abnormalities ASSESSMENT: Pt. is a 85 yo Right-handed white female.On 12/12/2020 Pt. 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 was independent/mod-I in Transfers Control, Locomotion, Se lf-Care, Social Cognition, Sphincter Control, and Communication; and she had good Balance and Safety Awareness.Currently, she has deficits of Transfers Control, Balance, Locomotion, Safety Awareness, Se lf-Care, and Social Cognition.Pt. is now referred to [facility] for acute in-p atient rehabilitation in order to maximize patient's functional independence in activities of daily l iving, strength, ROM, and mobility.- Rehab Goal Patient has realistic goal of being discharged at assistance level 6-Raudel to reside at Home with Gino ozuna. MDM/PLAN: - Physical Therapy Decreased range of motion - to improve, our physical therapists will perform initial evaluation of p t's status upon admission and devise an individualized program for increasing patient's Range of Srikanth on. Gait dysfunction - to improve, our physical therapists will perform initial evaluation of pt's statu s upon admission and devise an individualized program for Gait Training, and Wheel Chair mobility Inability to transfer - to improve, our physical therapists will perform initial evaluation of pt's status upon admission and devise an individualized program for Bed mobility Need for home safety evaluation - to improve, our physical therapists will perform initial evaluatio n of pt's status upon admission and devise an individualized program for Home Evaluation Need in caregiver upon discharge - to improve, our physical therapists will perform initial evaluati on of pt's status upon admission and devise an individualized program for Caregiver Training Edema - to improve, our physical therapists will perform initial evaluation of pt's status upon admi ssion and devise an individualized program for Elevation Training, and Lymphedema Therapy New precaution - to improve, our physical therapists will perform initial evaluation of pt's status upon admission and devise an individualized program for Patient precaution education Poor balance - to improve, our physical therapists will perform initial evaluation of pt's status up on admission and devise an individualized program for Balance Training Weakness - to improve, our physical therapists will perform initial evaluation of pt's status upon a dmission and devise an individualized program for Aquatic Therapy, Neuromuscular Reeducation, and Str engthening Achieving independence - to improve, our physical therapists will perform initial evaluation of pt's status upon admission and devise an individualized program for Community Reintegration Activities - Occupational Therapy ADL deficits - to improve, our occupation therapists will perform initial evaluation of pt's status upon admission and devise an individualized program for Bathing, Bed mobility, Community Reintegratio n, Cooking, Dressing, Eating, Fine Motor Skills, Grooming, Homemaking, Kitchen Mobility, Laundry, Pat ient Education, Safety Awareness, Splinting - Positioning, Transfers(Toilet, Tub, Shower), and Wheel Chair Management Cognitive deficits - to improve, our occupation therapists will perform initial evaluation of pt's s tatus upon admission and devise an individualized program for Cognition - orientation Need for physician locums urgent care - to improve, our occupation therapists will perform initial evaluation of pt's status upon admission and devise an individualized program for Caregiver Training Weakness - to improve, our occupation therapists will perform initial evaluation of pt's status upon admission and devise an individualized program for Aquatic Therapy, Balance, Endurance, UE ROM, and UE strengthening - Other See attached MAR (Medication Administration Record) - Diet Type Continue Regular - Diet - Liquid Texture Continue Regular - Tube Feed Continue N/A - Bladder care per protocol - Weight Bearing Precaution WBAT right LE - Skin care per protocol - Diet - Solid Texture Continue Regular - Shower allowing shower for Dementia, TBI, Stroke, or others FUNCTIONAL STATUS: UPDATED AT WEEKLY TEAM CONFERENCE - Walking Same score based on distance walked: 3(>=150ft) FUNCTIONAL STATUS: - Self-Care A. Eating Raudel B. Grooming sup C. Bathing Maria G D. Dressing - Upper sup E. Dressing - Lower Maria G F. Toileting Maria G - Sphincter Control G. Bladder control Raudel H. Bowel control aRudel - Transfers Control I. Bed/Chair/Wheelchair Maria G J. Toilet Maria G K. Tub/Shower modA - Locomotion L. Walk/Wheelchair (B) Maria G M. Stairs ADNO - Communication N. Comprehension (B) sup O. Expression (B) Raudel - Social Cognition P. Social Interaction Raudel Q. Problem Solving sup R. Memory sup - Endurance Fair - Balance Fair - Safety Awareness Fair QI SCORES: - Self-Care A. Eating 04-Supervision or touching assistance B. Oral hygiene 04-Supervision or touching assistance C. Toileting hygiene 03-Partial/moderate assistance E. Shower/bathe self 02-Substantial/maximal assistance F. Upper body dressing 02-Substantial/maximal assistance G. Lower body dressing 01-Dependent H. Putting on/taking off footwear 01-Dependent - Mobility A. Roll left and right 03-Partial/moderate assistance B. Sit to lying 03-Partial/moderate assistance C. Lying to sitting on side of bed 03-Partial/moderate assistance D. Sit to stand 03-Partial/moderate assistance E. Chair/nwa-ip-[id number] transfer 03-Partial/moderate assistance F. Toilet transfer 03-Partial/moderate assistance G. Car transfer 88-Not attempted due to medical condition or safety concerns I. Walk 10 feet 04-Supervision or touching assistance J. Walk 50 feet with two turns 04-Supervision or touching assistance K. Walk 150 feet 04-Supervision or touching assistance L. Walking 10 feet on uneven surfaces 88-Not attempted due to medical condition or safety concerns M. 1 step (curb) 88-Not attempted due to medical condition or safety concerns N. 4 steps 88-Not attempted due to medical condition or safety concerns O. 12 steps 88-Not attempted due to medical condition or safety concerns P. Picking up object 88-Not attempted due to medical condition or safety concerns - Endurance Poor - Balance Poor - Safety Awareness Poor CURRENT FUNC. DEFICITS: Self-Care, Mobility, Endurance, Balance, and Safety Awareness SIGNATURE PANEL: (CDT)
[2020-12-23] MEDS: CETIRIZINE HCL 5 MG TABLET PO SCH (20:59)
[2020-12-23] MEDS: MELATONIN 3 MG TABLET PO SCH (20:59)
[2020-12-23] MEDS: REFRESH PM OPTH SCH (21:00)
[2020-12-23] MEDS: DONEPEZIL HCL 5 MG TAB PO SCH (21:00)
[2020-12-24] MEDS: lisinopriL 20 MG TAB PO SCH (08:39)
[2020-12-24] MEDS: FUROSEMIDE 20 MG TABLET PO SCH (08:39)
[2020-12-24] MEDS: BENZONATATE 100 MG CAP PO PRN (08:39)
[2020-12-24] MEDS: REFRESH PLUS OPTH SCH ×2 (08:40→20:00)
[2020-12-24] MEDS: levETIRAcetam 500 MG TAB PO SCH ×2 (08:40→20:19)
[2020-12-24] MEDS: DOCUSATE NA 100 MG CAP PO SCH ×2 (08:40→20:19)
[2020-12-24] MEDS: MEMANTINE HCL 10 MG TABLET PO SCH ×2 (08:40→20:19)
[2020-12-24] MEDS: ENSURE ENLIVE 237 ML CAN PO SCH ×2 (08:40→20:20)
[2020-12-24] MEDS: MONTELUKAST 10 MG TAB PO SCH (08:40)
[2020-12-24] MEDS: SERTRALINE HCL 50 MG TAB PO SCH (08:40)
[2020-12-24] MEDS: guaiFENesin 100 MG/5 ML UCUP PO PRN (14:47)
[2020-12-24] MEDS: ENOXAPARIN 40 MG/0.4 ML SQ SCH (17:17)
--- NOTE | 2020-12-24 18:06 | R.PN ---
PROGRESS NOTES ENCOUNTER DATE AND TIME: 12/24/2020 18:02 (CDT) NAME JEN HICKEY DATE OF : 1935 DATE OF ADMISSION: 12/17/2020 17:59 (CDT) Traumatic subarachnoid hemm. with loss of consciousness frontal bilateral nasal fracturesCHIEF COMPLA INT: Stroke SUBJECTIVE: Pt denied any depression. Pt denied any Shortness of Breath. Ambulated 420' with contact guard assistance using a rolling walker. Labs were reviewed and are stable. UA is negative. WBC 6.5, Hgb 11.9, prealbumin 24.0, Electrical Machinist 0.85, UA normal. COVID-19 negative. Ambulated 480' with standby assistance using a rolling walker. Up and down 5 steps with minimum lawanda tance. VITAL SIGNS Temperature: 97.3 F 4SBP/DBP: 124/77 Pulse: 83 Resp: 16 MEDICATION ALLERGIES: No Known Drug Allergies (NKDA) ENVIRONMENTAL ALLERGIES: None Known - Substance Allergies None Known - Other Allergies None Known NURSING: - Shower allowing shower - Bladder care per protocol - Skin care per protocol PRECAUTIONS: - Weight Bearing Precaution WBAT left LE ACTIVITIES OOB only with supervision THERAPIES: - Occupational Therapy Cognitive Retraining. Visual Perceptual Training. - Dietary and Nutrition Adequate Nutrition. Nutritional Education. Nutritional Supplements. - Speech Therapy Cognitive Training. Expressive Language Skills. Memory Strategies. Receptive Language Skills. Speech Intelligibility Training. PHYSICAL EXAM - Gen Alert and awake Lying in bed No apparent distress Oriented to: person, time, and place - Vital Signs Vital signs stable, afebrile - Skin No breakdown Bruising noted on forehead and bridge of the nose. - Eyes No abnormalities - ENMT No abnormalities - Neck No abnormalities - CVS RRR - Chest No abnormalities - Resp Clear to auscultation - Abd + bowel sounds - GI Soft Deferred - No abnormalities - Ext No significant edema - MSK 4+/5 weakness in right upper and lower extremities - Neuro 4/5 strength right upper and lower extremities. - Psych No abnormalities ASSESSMENT: Pt. is a 85 yo Right-handed white female.On 12/12/[address] [facility] with sudde n onset of right-side weakness.On 12/12/2020 she was admitted to [facility] with diagnosis Tr aumatic subarachnoid hemm. with loss of consciousness .Her impairment category is Stroke 01 - Right Body (Left Brain) (01.2).Pre-morbidly, Pt. was independent/mod-I in Transfers Control, Locomotion, Se lf-Care, Social Cognition, Sphincter Control, and Communication; and she had good Balance and Safety Awareness.Currently, she has deficits of Transfers Control, Balance, Locomotion, Safety Awareness, Se lf-Care, and Social Cognition.Pt. is now referred to [facility] for acute in-p atient rehabilitation in order to maximize patient's functional independence in activities of daily l iving, strength, ROM, and mobility.- Rehab Goal Patient has realistic goal of being discharged at assistance level 6-Raudel to reside at Home with Gino ozuna. MDM/PLAN: - Physical Therapy Decreased range of motion - to improve, our physical therapists will perform initial evaluation of p t's status upon admission and devise an individualized program for increasing patient's Range of Srikanth on. Gait dysfunction - to improve, our physical therapists will perform initial evaluation of pt's statu s upon admission and devise an individualized program for Gait Training, and Wheel Chair mobility Inability to transfer - to improve, our physical therapists will perform initial evaluation of pt's status upon admission and devise an individualized program for Bed mobility Need for home safety evaluation - to improve, our physical therapists will perform initial evaluatio n of pt's status upon admission and devise an individualized program for Home Evaluation Need in caregiver upon discharge - to improve, our physical therapists will perform initial evaluati on of pt's status upon admission and devise an individualized program for Caregiver Training Edema - to improve, our physical therapists will perform initial evaluation of pt's status upon admi ssion and devise an individualized program for Elevation Training, and Lymphedema Therapy New precaution - to improve, our physical therapists will perform initial evaluation of pt's status upon admission and devise an individualized program for Patient precaution education Poor balance - to improve, our physical therapists will perform initial evaluation of pt's status up on admission and devise an individualized program for Balance Training Weakness - to improve, our physical therapists will perform initial evaluation of pt's status upon a dmission and devise an individualized program for Aquatic Therapy, Neuromuscular Reeducation, and Str engthening Achieving independence - to improve, our physical therapists will perform initial evaluation of pt's status upon admission and devise an individualized program for Community Reintegration Activities - Occupational Therapy ADL deficits - to improve, our occupation therapists will perform initial evaluation of pt's status upon admission and devise an individualized program for Bathing, Bed mobility, Community Reintegratio n, Cooking, Dressing, Eating, Fine Motor Skills, Grooming, Homemaking, Kitchen Mobility, Laundry, Pat ient Education, Safety Awareness, Splinting - Positioning, Transfers(Toilet, Tub, Shower), and Wheel Chair Management Cognitive deficits - to improve, our occupation therapists will perform initial evaluation of pt's s tatus upon admission and devise an individualized program for Cognition - orientation Need for child care cook - to improve, our occupation therapists will perform initial evaluation of pt's status upon admission and devise an individualized program for Caregiver Training Weakness - to improve, our occupation therapists will perform initial evaluation of pt's status upon admission and devise an individualized program for Aquatic Therapy, Balance, Endurance, UE ROM, and UE strengthening - Other See attached MAR (Medication Administration Record) - Diet Type Continue Regular - Diet - Liquid Texture Continue Regular - Tube Feed Continue N/A - Bladder care per protocol - Weight Bearing Precaution WBAT right LE - Skin care per protocol - Diet - Solid Texture Continue Regular - Shower allowing shower for Dementia, TBI, Stroke, or others FUNCTIONAL STATUS: UPDATED AT WEEKLY TEAM CONFERENCE - Walking Same score based on distance walked: 3(>=150ft) FUNCTIONAL STATUS: - Self-Care A. Eating Raudel B. Grooming sup C. Bathing Maria G D. Dressing - Upper sup E. Dressing - Lower Maria G F. Toileting Maria G - Sphincter Control G. Bladder control Raudel H. Bowel control Raudel - Transfers Control I. Bed/Chair/Wheelchair Maria G J. Toilet Maria G K. Tub/Shower modA - Locomotion L. Walk/Wheelchair (B) Maria G M. Stairs ADNO - Communication N. Comprehension (B) sup O. Expression (B) Raudel - Social Cognition P. Social Interaction Raudel Q. Problem Solving sup R. Memory sup - Endurance Fair - Balance Fair - Safety Awareness Fair QI SCORES: - Self-Care A. Eating 04-Supervision or touching assistance B. Oral hygiene 04-Supervision or touching assistance C. Toileting hygiene 03-Partial/moderate assistance E. Shower/bathe self 02-Substantial/maximal assistance F. Upper body dressing 02-Substantial/maximal assistance G. Lower body dressing 01-Dependent H. Putting on/taking off footwear 01-Dependent - Mobility A. Roll left and right 03-Partial/moderate assistance B. Sit to lying 03-Partial/moderate assistance C. Lying to sitting on side of bed 03-Partial/moderate assistance D. Sit to stand 03-Partial/moderate assistance E. Chair/[id number]-uzyih transfer 03-Partial/moderate assistance F. Toilet transfer 03-Partial/moderate assistance G. Car transfer 88-Not attempted due to medical condition or safety concerns I. Walk 10 feet 04-Supervision or touching assistance J. Walk 50 feet with two turns 04-Supervision or touching assistance K. Walk 150 feet 04-Supervision or touching assistance L. Walking 10 feet on uneven surfaces 88-Not attempted due to medical condition or safety concerns M. 1 step (curb) 88-Not attempted due to medical condition or safety concerns N. 4 steps 88-Not attempted due to medical condition or safety concerns O. 12 steps 88-Not attempted due to medical condition or safety concerns P. Picking up object 88-Not attempted due to medical condition or safety concerns - Endurance Poor - Balance Poor - Safety Awareness Poor CURRENT FUNC. DEFICITS: Self-Care, Mobility, Endurance, Balance, and Safety Awareness SIGNATURE PANEL: (CDT)
[2020-12-24] MEDS: CETIRIZINE HCL 5 MG TABLET PO SCH (20:20)
[2020-12-24] MEDS: DONEPEZIL HCL 5 MG TAB PO SCH (20:20)
[2020-12-24] MEDS: GENTAMICIN 0.3% OPTH OINT 3.5GM EACH EYE SCH (20:20)
[2020-12-24] MEDS: REFRESH PM OPTH SCH (20:21)
[2020-12-24] MEDS: MELATONIN 3 MG TABLET PO SCH (20:21)
[2020-12-25] MEDS: lisinopriL 20 MG TAB PO SCH (07:16)
[2020-12-25] MEDS: DOCUSATE NA 100 MG CAP PO SCH ×2 (07:16→19:55)
[2020-12-25] MEDS: MONTELUKAST 10 MG TAB PO SCH (07:17)
[2020-12-25] MEDS: MEMANTINE HCL 10 MG TABLET PO SCH ×2 (07:17→19:55)
[2020-12-25] MEDS: FUROSEMIDE 20 MG TABLET PO SCH (07:17)
[2020-12-25] MEDS: SERTRALINE HCL 50 MG TAB PO SCH (07:18)
[2020-12-25] MEDS: levETIRAcetam 500 MG TAB PO SCH ×2 (07:18→19:56)
[2020-12-25] MEDS: REFRESH PLUS OPTH SCH ×2 (07:19→19:55)
[2020-12-25] MEDS: GENTAMICIN 0.3% OPTH OINT 3.5GM EACH EYE SCH ×2 (07:20→19:56)
[2020-12-25] MEDS: ENSURE ENLIVE 237 ML CAN PO SCH ×2 (12:13→19:56)
[2020-12-25] MEDS: ENOXAPARIN 40 MG/0.4 ML SQ SCH (16:32)
--- NOTE | 2020-12-25 18:03 | R.PN ---
PROGRESS NOTES ENCOUNTER DATE AND TIME: 12/25/2020 17:59 (CDT) NAME JEN HICKEY DATE OF : 1935 DATE OF ADMISSION: 12/17/2020 17:59 (CDT) Traumatic subarachnoid hemm. with loss of consciousness frontal bilateral nasal fracturesCHIEF COMPLA INT: Stroke SUBJECTIVE: Pt denied any depression. Pt denied any Shortness of Breath. Ambulated 420' with contact guard assistance using a rolling walker. Labs were reviewed and are stable. UA is negative. WBC 6.5, Hgb 11.9, prealbumin 24.0, Diesel Fleet Mechanic 0.85, UA normal. COVID-19 negative. Ambulated 410' with standby assistance using a rolling walker. Up and down 5 steps with minimum lawanda tance. Self propelled wheelchair 250' with standby assistance. VITAL SIGNS Temperature: 97.7 F 4SBP/DBP: 167/79 Pulse: 66 Resp: 16 MEDICATION ALLERGIES: No Known Drug Allergies (NKDA) ENVIRONMENTAL ALLERGIES: None Known - Substance Allergies None Known - Other Allergies None Known NURSING: - Shower allowing shower - Bladder care per protocol - Skin care per protocol PRECAUTIONS: - Weight Bearing Precaution WBAT left LE ACTIVITIES OOB only with supervision THERAPIES: - Occupational Therapy Cognitive Retraining. Visual Perceptual Training. - Dietary and Nutrition Adequate Nutrition. Nutritional Education. Nutritional Supplements. - Speech Therapy Cognitive Training. Expressive Language Skills. Memory Strategies. Receptive Language Skills. Speech Intelligibility Training. PHYSICAL EXAM - Gen Alert and awake Lying in bed No apparent distress Oriented to: person, time, and place - Vital Signs Vital signs stable, afebrile - Skin No breakdown Bruising noted on forehead and bridge of the nose. - Eyes No abnormalities - ENMT No abnormalities - Neck No abnormalities - CVS RRR - Chest No abnormalities - Resp Clear to auscultation - Abd + bowel sounds - GI Soft Deferred - No abnormalities - Ext No significant edema - MSK 4+/5 weakness in right upper and lower extremities - Neuro 4/5 strength right upper and lower extremities. - Psych No abnormalities ASSESSMENT: Pt. is a 85 yo Right-handed white female.On 12/12/2020 Pt. presented to [facility] with sudde n onset of right-side weakness.On 12/12/2020 she was admitted to [facility] with diagnosis Tr aumatic subarachnoid hemm. with loss of consciousness .Her impairment category is Stroke 01 - Right Body (Left Brain) (01.2).Pre-morbidly, Pt. was independent/mod-I in Transfers Control, Locomotion, Se lf-Care, Social Cognition, Sphincter Control, and Communication; and she had good Balance and Safety Awareness.Currently, she has deficits of Transfers Control, Balance, Locomotion, Safety Awareness, Se lf-Care, and Social Cognition.Pt. is now referred to [facility] for acute in-p atient rehabilitation in order to maximize patient's functional independence in activities of daily l iving, strength, ROM, and mobility.- Rehab Goal Patient has realistic goal of being discharged at assistance level 6-Raudel to reside at Home with Gino ozuna. MDM/PLAN: - Physical Therapy Decreased range of motion - to improve, our physical therapists will perform initial evaluation of p t's status upon admission and devise an individualized program for increasing patient's Range of Srikanth on. Gait dysfunction - to improve, our physical therapists will perform initial evaluation of pt's statu s upon admission and devise an individualized program for Gait Training, and Wheel Chair mobility Inability to transfer - to improve, our physical therapists will perform initial evaluation of pt's status upon admission and devise an individualized program for Bed mobility Need for home safety evaluation - to improve, our physical therapists will perform initial evaluatio n of pt's status upon admission and devise an individualized program for Home Evaluation Need in caregiver upon discharge - to improve, our physical therapists will perform initial evaluati on of pt's status upon admission and devise an individualized program for Caregiver Training Edema - to improve, our physical therapists will perform initial evaluation of pt's status upon admi ssion and devise an individualized program for Elevation Training, and Lymphedema Therapy New precaution - to improve, our physical therapists will perform initial evaluation of pt's status upon admission and devise an individualized program for Patient precaution education Poor balance - to improve, our physical therapists will perform initial evaluation of pt's status up on admission and devise an individualized program for Balance Training Weakness - to improve, our physical therapists will perform initial evaluation of pt's status upon a dmission and devise an individualized program for Aquatic Therapy, Neuromuscular Reeducation, and Str engthening Achieving independence - to improve, our physical therapists will perform initial evaluation of pt's status upon admission and devise an individualized program for Community Reintegration Activities - Occupational Therapy ADL deficits - to improve, our occupation therapists will perform initial evaluation of pt's status upon admission and devise an individualized program for Bathing, Bed mobility, Community Reintegratio n, Cooking, Dressing, Eating, Fine Motor Skills, Grooming, Homemaking, Kitchen Mobility, Laundry, Pat ient Education, Safety Awareness, Splinting - Positioning, Transfers(Toilet, Tub, Shower), and Wheel Chair Management Cognitive deficits - to improve, our occupation therapists will perform initial evaluation of pt's s tatus upon admission and devise an individualized program for Cognition - orientation Need for patient care provider - to improve, our occupation therapists will perform initial evaluation of pt's status upon admission and devise an individualized program for Caregiver Training Weakness - to improve, our occupation therapists will perform initial evaluation of pt's status upon admission and devise an individualized program for Aquatic Therapy, Balance, Endurance, UE ROM, and UE strengthening - Other See attached MAR (Medication Administration Record) - Diet Type Continue Regular - Diet - Liquid Texture Continue Regular - Tube Feed Continue N/A - Bladder care per protocol - Weight Bearing Precaution WBAT right LE - Skin care per protocol - Diet - Solid Texture Continue Regular - Shower allowing shower for Dementia, TBI, Stroke, or others FUNCTIONAL STATUS: UPDATED AT WEEKLY TEAM CONFERENCE - Walking Same score based on distance walked: 3(>=150ft) FUNCTIONAL STATUS: - Self-Care A. Eating Raudel B. Grooming sup C. Bathing Maria G D. Dressing - Upper sup E. Dressing - Lower Maria G F. Toileting Maria G - Sphincter Control G. Bladder control Raudel H. Bowel control Raudel - Transfers Control I. Bed/Chair/Wheelchair Maria G J. Toilet Maria G K. Tub/Shower modA - Locomotion L. Walk/Wheelchair (B) Maria G M. Stairs ADNO - Communication N. Comprehension (B) sup O. Expression (B) Raudel - Social Cognition P. Social Interaction Raudel Q. Problem Solving sup R. Memory sup - Endurance Fair - Balance Fair - Safety Awareness Fair QI SCORES: - Self-Care A. Eating 04-Supervision or touching assistance B. Oral hygiene 04-Supervision or touching assistance C. Toileting hygiene 03-Partial/moderate assistance E. Shower/bathe self 02-Substantial/maximal assistance F. Upper body dressing 02-Substantial/maximal assistance G. Lower body dressing 01-Dependent H. Putting on/taking off footwear 01-Dependent - Mobility A. Roll left and right 03-Partial/moderate assistance B. Sit to lying 03-Partial/moderate assistance C. Lying to sitting on side of bed 03-Partial/moderate assistance D. Sit to stand 03-Partial/moderate assistance E. Chair/kxy-ki-hegbs transfer 03-Partial/moderate assistance F. Toilet transfer 03-Partial/moderate assistance G. Car transfer 88-Not attempted due to medical condition or safety concerns I. Walk 10 feet 04-Supervision or touching assistance J. Walk 50 feet with two turns 04-Supervision or touching assistance K. Walk 150 feet 04-Supervision or touching assistance L. Walking 10 feet on uneven surfaces 88-Not attempted due to medical condition or safety concerns M. 1 step (curb) 88-Not attempted due to medical condition or safety concerns N. 4 steps 88-Not attempted due to medical condition or safety concerns O. 12 steps 88-Not attempted due to medical condition or safety concerns P. Picking up object 88-Not attempted due to medical condition or safety concerns - Endurance Poor - Balance Poor - Safety Awareness Poor CURRENT [facility]. DEFICITS: Self-Care, Mobility, Endurance, Balance, and Safety Awareness SIGNATURE PANEL: (CDT)
[2020-12-25] MEDS: MELATONIN 3 MG TABLET PO SCH (19:55)
[2020-12-25] MEDS: DONEPEZIL HCL 5 MG TAB PO SCH (19:55)
[2020-12-25] MEDS: CETIRIZINE HCL 5 MG TABLET PO SCH (19:55)
[2020-12-25] MEDS: REFRESH PM OPTH SCH (19:56)
[2020-12-26 06:43] LABS: Absolute Lymphocytes (CBC) 1.3 K/uL (0.7-4.9); Basophils % 1.1 % (0-1.3); Hematocrit 34.8 % (36.0-45.0); Lymphocytes % 18.7 % (15.3-44.8); MPV 8.6 fL (7.6-11.3); RBC Red Blood Cell Count 3.98 M/uL (3.86-4.86)
[2020-12-26 07:08] LABS: Albumin 3.4 g/dL (3.4-5.0); Magnesium 2.4 mg/dL (1.8-2.4); Potassium 4.1 mmol/L (3.5-5.1); Prealbumin 21.1 mg/dL (20-40)
[2020-12-26] MEDS: levETIRAcetam 500 MG TAB PO SCH ×2 (07:18→20:10)
[2020-12-26] MEDS: MONTELUKAST 10 MG TAB PO SCH (07:18)
[2020-12-26] MEDS: FUROSEMIDE 20 MG TABLET PO SCH (07:18)
[2020-12-26] MEDS: lisinopriL 20 MG TAB PO SCH (07:19)
[2020-12-26] MEDS: MEMANTINE HCL 10 MG TABLET PO SCH ×2 (07:19→20:11)
[2020-12-26] MEDS: SERTRALINE HCL 50 MG TAB PO SCH (07:20)
[2020-12-26] MEDS: ENSURE ENLIVE 237 ML CAN PO SCH ×2 (07:20→20:00)
[2020-12-26] MEDS: DOCUSATE NA 100 MG CAP PO SCH ×2 (07:20→20:10)
[2020-12-26] MEDS: REFRESH PLUS OPTH SCH ×2 (07:30→20:00)
[2020-12-26] MEDS: GENTAMICIN 0.3% OPTH OINT 3.5GM EACH EYE SCH ×2 (09:27→20:00)
[2020-12-26] MEDS: BENZONATATE 100 MG CAP PO PRN (15:01)
[2020-12-26] MEDS: ENOXAPARIN 40 MG/0.4 ML SQ SCH (16:48)
[2020-12-26] MEDS ORDERED: DOCUSATE NA/SENNA CONC 1 TAB PO PRN (18:26)
--- NOTE | 2020-12-26 19:31 | R.PN ---
PROGRESS NOTES ENCOUNTER DATE AND TIME: 12/26/2020 19:28 (CDT) NAME JEN HICKEY DATE OF : 1935 DATE OF ADMISSION: 12/17/2020 17:59 (CDT) Traumatic subarachnoid hemm. with loss of consciousness frontal bilateral nasal fracturesCHIEF COMPLA INT: Stroke SUBJECTIVE: Pt denied any depression. Pt denied any Shortness of Breath. Ambulated 420' with contact guard assistance using a rolling walker. Labs were reviewed and are stable. UA is negative. WBC 675, Hgb 11.7, prealbumin 24.0, Non Destructive Testing Technician 0.77, UA normal. COVID-19 negative. Ambulated 390' with standby assistance using a rolling walker. Up and down 5 steps with minimum lawanda tance. Self propelled wheelchair 150' with standby assistance. VITAL SIGNS Temperature: 97.9 F 4SBP/DBP: 149/74 Pulse: 65 Resp: 16 MEDICATION ALLERGIES: No Known Drug Allergies (NKDA) ENVIRONMENTAL ALLERGIES: None Known - Substance Allergies None Known - Other Allergies None Known NURSING: - Shower allowing shower - Bladder care per protocol - Skin care per protocol PRECAUTIONS: - Weight Bearing Precaution WBAT left LE ACTIVITIES OOB only with supervision THERAPIES: - Occupational Therapy Cognitive Retraining. Visual Perceptual Training. - Dietary and Nutrition Adequate Nutrition. Nutritional Education. Nutritional Supplements. - Speech Therapy Cognitive Training. Expressive Language Skills. Memory Strategies. Receptive Language Skills. Speech Intelligibility Training. PHYSICAL EXAM - Gen Alert and awake Lying in bed No apparent distress Oriented to: person, time, and place - Vital Signs Vital signs stable, afebrile - Skin No breakdown Bruising noted on forehead and bridge of the nose. - Eyes No abnormalities - ENMT No abnormalities - Neck No abnormalities - CVS RRR - Chest No abnormalities - Resp Clear to auscultation - Abd + bowel sounds - GI Soft Deferred - No abnormalities - Ext No significant edema - MSK 4+/5 weakness in right upper and lower extremities - Neuro 4/5 strength right upper and lower extremities. - Psych No abnormalities ASSESSMENT: Pt. is a 85 yo Right-handed white female.On 12/12/2020 Pt. presented to [facility] with sudde n onset of right-side weakness.On 12/12/2020 she was admitted to [facility] with diagnosis Tr aumatic subarachnoid hemm. with loss of consciousness .Her impairment category is Stroke 01 - Right Body (Left Brain) (01.2).Pre-morbidly, Pt. was independent/mod-I in Transfers Control, Locomotion, Se lf-Care, Social Cognition, Sphincter Control, and Communication; and she had good Balance and Safety Awareness.Currently, she has deficits of Transfers Control, Balance, Locomotion, Safety Awareness, Se lf-Care, and Social Cognition.Pt. is now referred to [facility] for acute in-p atient rehabilitation in order to maximize patient's functional independence in activities of daily l iving, strength, ROM, and mobility.- Rehab Goal Patient has realistic goal of being discharged at assistance level 6-Raudel to reside at Home with Gino ozuna. MDM/PLAN: - Physical Therapy Decreased range of motion - to improve, our physical therapists will perform initial evaluation of p t's status upon admission and devise an individualized program for increasing patient's Range of Srikanth on. Gait dysfunction - to improve, our physical therapists will perform initial evaluation of pt's statu s upon admission and devise an individualized program for Gait Training, and Wheel Chair mobility Inability to transfer - to improve, our physical therapists will perform initial evaluation of pt's status upon admission and devise an individualized program for Bed mobility Need for home safety evaluation - to improve, our physical therapists will perform initial evaluatio n of pt's status upon admission and devise an individualized program for Home Evaluation Need in caregiver upon discharge - to improve, our physical therapists will perform initial evaluati on of pt's status upon admission and devise an individualized program for Caregiver Training Edema - to improve, our physical therapists will perform initial evaluation of pt's status upon admi ssion and devise an individualized program for Elevation Training, and Lymphedema Therapy New precaution - to improve, our physical therapists will perform initial evaluation of pt's status upon admission and devise an individualized program for Patient precaution education Poor balance - to improve, our physical therapists will perform initial evaluation of pt's status up on admission and devise an individualized program for Balance Training Weakness - to improve, our physical therapists will perform initial evaluation of pt's status upon a dmission and devise an individualized program for Aquatic Therapy, Neuromuscular Reeducation, and Str engthening Achieving independence - to improve, our physical therapists will perform initial evaluation of pt's status upon admission and devise an individualized program for Community Reintegration Activities - Occupational Therapy ADL deficits - to improve, our occupation therapists will perform initial evaluation of pt's status upon admission and devise an individualized program for Bathing, Bed mobility, Community Reintegratio n, Cooking, Dressing, Eating, Fine Motor Skills, Grooming, Homemaking, Kitchen Mobility, Laundry, Pat ient Education, Safety Awareness, Splinting - Positioning, Transfers(Toilet, Tub, Shower), and Wheel Chair Management Cognitive deficits - to improve, our occupation therapists will perform initial evaluation of pt's s tatus upon admission and devise an individualized program for Cognition - orientation Need for resident caregiver - to improve, our occupation therapists will perform initial evaluation of pt's status upon admission and devise an individualized program for Caregiver Training Weakness - to improve, our occupation therapists will perform initial evaluation of pt's status upon admission and devise an individualized program for Aquatic Therapy, Balance, Endurance, UE ROM, and UE strengthening - Other See attached MAR (Medication Administration Record) - Diet Type Continue Regular - Diet - Liquid Texture Continue Regular - Tube Feed Continue N/A - Bladder care per protocol - Weight Bearing Precaution WBAT right LE - Skin care per protocol - Diet - Solid Texture Continue Regular - Shower allowing shower for Dementia, TBI, Stroke, or others FUNCTIONAL STATUS: UPDATED AT WEEKLY TEAM CONFERENCE - Walking Same score based on distance walked: 3(>=150ft) FUNCTIONAL STATUS: - Self-Care A. Eating Raudel B. Grooming sup C. Bathing Maria G D. Dressing - Upper sup E. Dressing - Lower Maria G F. Toileting Maria G - Sphincter Control G. Bladder control Raudel H. Bowel control Raudel - Transfers Control I. Bed/Chair/Wheelchair Maria G J. Toilet Maria G K. Tub/Shower modA - Locomotion L. Walk/Wheelchair (B) Marai G M. Stairs ADNO - Communication N. Comprehension (B) sup O. Expression (B) Raudel - Social Cognition P. Social Interaction Raudel Q. Problem Solving sup R. Memory sup - Endurance Fair - Balance Fair - Safety Awareness Fair QI SCORES: - Self-Care A. Eating 04-Supervision or touching assistance B. Oral hygiene 04-Supervision or touching assistance C. Toileting hygiene 03-Partial/moderate assistance E. Shower/bathe self 02-Substantial/maximal assistance F. Upper body dressing 02-Substantial/maximal assistance G. Lower body dressing 01-Dependent H. Putting on/taking off footwear 01-Dependent - Mobility A. Roll left and right 03-Partial/moderate assistance B. Sit to lying 03-Partial/moderate assistance C. Lying to sitting on side of bed 03-Partial/moderate assistance D. Sit to stand 03-Partial/moderate assistance E. Chair/[id number] transfer 03-Partial/moderate assistance F. Toilet transfer 03-Partial/moderate assistance G. Car transfer 88-Not attempted due to medical condition or safety concerns I. Walk 10 feet 04-Supervision or touching assistance J. Walk 50 feet with two turns 04-Supervision or touching assistance K. Walk 150 feet 04-Supervision or touching assistance L. Walking 10 feet on uneven surfaces 88-Not attempted due to medical condition or safety concerns M. 1 step (curb) 88-Not attempted due to medical condition or safety concerns N. 4 steps 88-Not attempted due to medical condition or safety concerns O. 12 steps 88-Not attempted due to medical condition or safety concerns P. Picking up object 88-Not attempted due to medical condition or safety concerns - Endurance Poor - Balance Poor - Safety Awareness Poor CURRENT [facility]. DEFICITS: Self-Care, Mobility, Endurance, Balance, and Safety Awareness SIGNATURE PANEL: (CDT)
[2020-12-26] MEDS: REFRESH PM OPTH SCH (20:10)
[2020-12-26] MEDS: CETIRIZINE HCL 5 MG TABLET PO SCH (20:10)
[2020-12-26] MEDS: DONEPEZIL HCL 5 MG TAB PO SCH (20:10)
[2020-12-27] MEDS: lisinopriL 20 MG TAB PO SCH (07:15)
[2020-12-27] MEDS: FUROSEMIDE 20 MG TABLET PO SCH (07:16)
[2020-12-27] MEDS: REFRESH PLUS OPTH SCH ×2 (07:16→20:00)
[2020-12-27] MEDS: GENTAMICIN 0.3% OPTH OINT 3.5GM EACH EYE SCH ×2 (07:17→20:00)
[2020-12-27] MEDS: BENZONATATE 100 MG CAP PO PRN (07:30)
[2020-12-27] MEDS: ENSURE ENLIVE 237 ML CAN PO SCH ×2 (07:30→20:02)
[2020-12-27] MEDS: SERTRALINE HCL 50 MG TAB PO SCH (07:31)
[2020-12-27] MEDS: levETIRAcetam 500 MG TAB PO SCH ×2 (07:31→20:03)
[2020-12-27] MEDS: MEMANTINE HCL 10 MG TABLET PO SCH ×2 (07:31→20:03)
[2020-12-27] MEDS: DOCUSATE NA 100 MG CAP PO SCH ×2 (07:31→20:02)
[2020-12-27] MEDS: MONTELUKAST 10 MG TAB PO SCH (07:31)
--- NOTE | 2020-12-27 09:32 | P.RH.PN ---
Estimated Length of Stay: 14 Expected Discharge Date: 01/01/21 Discharge Disposition Plan: Home Family Support: Yes Senior Living Goal: Mobility, Transfers, Self Care Vital Signs: Last Vital Signs Temp 98.1 F 12/27/20 09:03 Pulse 72 12/27/20 09:03 Resp 16 12/27/20 09:03 BP 187/73 H 12/27/20 09:03 Pulse Ox 97 12/27/20 09:03 Laboratory: Laboratory Last Values WBC 6.70 K/uL (4.3-10.9) 12/26/20 06:23 RBC 3.98 M/uL (3.86-4.86) 12/26/20 06:23 Hgb 11.7 g/dL (12.0-15.0) L 12/26/20 06:23 Hct 34.8 % (36.0-45.0) L 12/26/20 06:23 MCV 87.4 fL (80-100) 12/26/20 06:23 MCH 29.5 pg (27.0-35.0) 12/26/20 06:23 MCHC 33.7 g/dL (32.0-36.0) 12/26/20 06:23 RDW 13.4 % (12.1-15.2) 12/26/20 06:23 Plt Count 226 K/uL (152-406) 12/26/20 06:23 MPV 8.6 fL (7.6-11.3) 12/26/20 06:23 Neutrophils % 66.9 % (41.7-73.7) 12/26/20 06:23 Lymphocytes % 18.7 % (15.3-44.8) 12/26/20 06:23 Monocytes % 11.1 % (3.3-12.3) 12/26/20 06:23 Eosinophils % 2.2 % (0-4.4) 12/26/20 06:23 Basophils % 1.1 % (0-1.3) 12/26/20 06:23 Absolute Neutrophils 4.5 K/uL (1.8-8.0) 12/26/20 06:23 Absolute Lymphocytes 1.3 K/uL (0.7-4.9) 12/26/20 06:23 Absolute Monocytes 0.7 K/uL (0.1-1.3) 12/26/20 06:23 Absolute Eosinophils 0.1 K/uL (0-0.5) 12/26/20 06:23 Absolute Basophils 0.1 K/uL (0-0.5) 12/26/20 06:23 Sodium 136 mmol/L (136-145) 12/26/20 06:23 Potassium 4.1 mmol/L (3.5-5.1) 12/26/20 06:23 Chloride 98 mmol/L (98-107) 12/26/20 06:23 Carbon Dioxide 32 mmol/L (21-32) 12/26/20 06:23 BUN 25 mg/dL (7-18) H 12/26/20 06:23 Creatinine 0.77 mg/dL (0.55-1.3) 12/26/20 06:23 Estimated GFR 71 mL/min (=/>90) L 12/26/20 06:23 Glucose 96 mg/dL (74-106) 12/26/20 06:23 Calcium 9.5 mg/dL (8.5-10.1) 12/26/20 06:23 Magnesium 2.4 mg/dL (1.8-2.4) 12/26/20 06:23 Albumin 3.4 g/dL (3.4-5.0) 12/26/20 06:23 Prealbumin 21.1 mg/dL (20-40) 12/26/20 06:23 Urine Color Yellow (Yellow) 12/18/20 14:45 Urine Appearance Clear (Clear) 12/18/20 14:45 Urine pH 5.5 (5.0-7.0) 12/18/20 14:45 Ur Specific [place] 1.010 (1.005-1.030) 12/18/20 14:45 Glucose (UA)(Auto) Negative (Negative) 12/18/20 14:45 Urine Ketones Negative (Negative) 12/18/20 14:45 Urine Blood Negative (Negative) 12/18/20 14:45 Urine Nitrite Negative (Negative) 12/18/20 14:45 Urine Bilirubin Negative (Negataive) 12/18/20 14:45 Urine Urobilinogen 0.2 mg/dL (0.2-1.0) 12/18/20 14:45 Ur Leukocyte Esterase Negative (Negative) 12/18/20 14:45 Urine RBC <5 /HPF (NONE SEEN) 12/18/20 14:45 Urine WBC <5 /HPF (<5) 12/18/20 14:45 Ur Squamous Epith Cells <5 /HPF (NONE SEEN) 12/18/20 14:45 Urine Bacteria <20 /HPF (<20) 12/18/20 14:45 Urine Culture Reflexed Not needed 12/18/20 14:45 Urine Total Protein Negative (Negative) 12/18/20 14:45 SARS-CoV-2 RNA (RT-PCR) Negative (NEGATIVE) 12/23/20 05:36 Weight: 118 lb 9.6 oz Wound Present: No Closed Surgical Incision Present: No Negative Pressure Wound Therapy Present: No Physician Update: Labs reviewed and are stable. She is walking well at standby assistance 230'. Up and down 5 stairs. Standby assistance with all ADLs. Functional Improvement: Patient currently completing stairs w/ Min A at 5 steps, and gait tx. w/ SBA w/ RW at 230 ft. Patient presents w/ good attitude toward therapy, however does show slight memory/cognition issues. 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 Please see the Rehabilitation Signature page for all necessary signatures.
[2020-12-27] MEDS: ENOXAPARIN 40 MG/0.4 ML SQ SCH (16:49)
[2020-12-27] MEDS: DONEPEZIL HCL 5 MG TAB PO SCH (20:04)
[2020-12-27] MEDS: CETIRIZINE HCL 5 MG TABLET PO SCH (20:04)
[2020-12-27] MEDS: REFRESH PM OPTH SCH (20:05)
[2020-12-28] MEDS: BENZONATATE 100 MG CAP PO PRN (01:10)
--- NOTE | 2020-12-28 04:43 | R.PN ---
PROGRESS NOTES ENCOUNTER DATE AND TIME: 12/19/2020 19:44 (CDT) NAME JEN HICKEY DATE OF : 1935 DATE OF ADMISSION: 12/17/2020 17:59 (CDT) Traumatic subarachnoid hemm. with loss of consciousness frontal bilateral nasal fracturesCHIEF COMPLA INT: Stroke SUBJECTIVE: Pt denied any depression. Pt denied any Shortness of Breath. Ambulated 420' with contact guard assistance using a rolling walker. Labs were reviewed and are stable. UA is negative. VITAL SIGNS Temperature: 98.8 F SBP/DBP: 169/78 Pulse: 68 Resp: 16 MEDICATION ALLERGIES: No Known Drug Allergies (NKDA) ENVIRONMENTAL ALLERGIES: None Known - Substance Allergies None Known - Other Allergies None Known NURSING: - Shower allowing shower - Bladder care per protocol - Skin care per protocol PRECAUTIONS: - Weight Bearing Precaution WBAT left LE ACTIVITIES OOB only with supervision THERAPIES: - Occupational Therapy Cognitive Retraining. Visual Perceptual Training. - Dietary and Nutrition Adequate Nutrition. Nutritional Education. Nutritional Supplements. - Speech Therapy Cognitive Training. Expressive Language Skills. Memory Strategies. Receptive Language Skills. Speech Intelligibility Training. PHYSICAL EXAM - Gen Alert and awake Lying in bed No apparent distress Oriented to: person, time, and place - Vital Signs Vital signs stable, afebrile - Skin No breakdown Bruising noted on forehead and bridge of the nose. - Eyes No abnormalities - ENMT No abnormalities - Neck No abnormalities - CVS RRR - Chest No abnormalities - Resp Clear to auscultation - Abd + bowel sounds - GI Soft Deferred - No abnormalities - Ext No significant edema - MSK 4+/5 weakness in right upper and lower extremities - Neuro 4/5 strength right upper and lower extremities. - Psych No abnormalities ASSESSMENT: Pt. is a 85 yo Right-handed white female.On 12/12/[address] [facility] with sudde n onset of right-side weakness.On 12/12/2020 she was admitted to [facility] with diagnosis Tr aumatic subarachnoid hemm. with loss of consciousness .Her impairment category is Stroke 01 - Right Body (Left Brain) (01.2).Pre-morbidly, Pt. was independent/mod-I in Transfers Control, Locomotion, Se lf-Care, Social Cognition, Sphincter Control, and Communication; and she had good Balance and Safety Awareness.Currently, she has deficits of Transfers Control, Balance, Locomotion, Safety Awareness, Se lf-Care, and Social Cognition.Pt. is now referred to [facility] for acute in-p atient rehabilitation in order to maximize patient's functional independence in activities of daily l iving, strength, ROM, and mobility.- Rehab Goal Patient has realistic goal of being discharged at assistance level 6-Raudel to reside at Home with Gino ozuna. MDM/PLAN: - Physical Therapy Decreased range of motion - to improve, our physical therapists will perform initial evaluation of p t's status upon admission and devise an individualized program for increasing patient's Range of Srikanth on. Gait dysfunction - to improve, our physical therapists will perform initial evaluation of pt's statu s upon admission and devise an individualized program for Gait Training, and Wheel Chair mobility Inability to transfer - to improve, our physical therapists will perform initial evaluation of pt's status upon admission and devise an individualized program for Bed mobility Need for home safety evaluation - to improve, our physical therapists will perform initial evaluatio n of pt's status upon admission and devise an individualized program for Home Evaluation Need in caregiver upon discharge - to improve, our physical therapists will perform initial evaluati on of pt's status upon admission and devise an individualized program for Caregiver Training Edema - to improve, our physical therapists will perform initial evaluation of pt's status upon admis ashwini and devise an individualized program for Elevation Training, and Lymphedema Therapy New precaution - to improve, our physical therapists will perform initial evaluation of pt's status upon admission and devise an individualized program for Patient precaution education Poor balance - to improve, our physical therapists will perform initial evaluation of pt's status up on admission and devise an individualized program for Balance Training Weakness - to improve, our physical therapists will perform initial evaluation of pt's status upon a dmission and devise an individualized program for Aquatic Therapy, Neuromuscular Reeducation, and Str engthening Achieving independence - to improve, our physical therapists will perform initial evaluation of pt's status upon admission and devise an individualized program for Community Reintegration Activities - Occupational Therapy ADL deficits - to improve, our occupation therapists will perform initial evaluation of pt's status upon admission and devise an individualized program for Bathing, Bed mobility, Community Reintegratio n, Cooking, Dressing, Eating, Fine Motor Skills, Grooming, Homemaking, Kitchen Mobility, Laundry, Pat ient Education, Safety Awareness, Splinting - Positioning, Transfers(Toilet, Tub, Shower), and Wheel Chair Management Cognitive deficits - to improve, our occupation therapists will perform initial evaluation of pt's s tatus upon admission and devise an individualized program for Cognition - orientation Need for medical care manager - to improve, our occupation therapists will perform initial evaluation of pt's status upon admission and devise an individualized program for Caregiver Training Weakness - to improve, our occupation therapists will perform initial evaluation of pt's status upon admission and devise an individualized program for Aquatic Therapy, Balance, Endurance, UE ROM, and UE strengthening - Other See attached MAR (Medication Administration Record) - Diet Type Continue Regular - Diet - Liquid Texture Continue Regular - Tube Feed Continue N/A - Bladder care per protocol - Weight Bearing Precaution WBAT right LE - Skin care per protocol - Diet - Solid Texture Continue Regular - Shower allowing shower for Dementia, TBI, Stroke, or others FUNCTIONAL STATUS: UPDATED AT WEEKLY TEAM CONFERENCE - Walking Same score based on distance walked: 3(>=150ft) FUNCTIONAL STATUS: - Self-Care A. Eating Raudel B. Grooming sup C. Bathing Maria G D. Dressing - Upper sup E. Dressing - Lower Maria G F. Toileting Maria G - Sphincter Control G. Bladder control Raudel H. Bowel control Raudel - Transfers Control I. Bed/Chair/Wheelchair Maria G J. Toilet Maria G K. Tub/Shower modA - Locomotion L. Walk/Wheelchair (B) Maria G M. Stairs ADNO - Communication N. Comprehension (B) sup O. Expression (B) Raudel - Social Cognition P. Social Interaction Raudel Q. Problem Solving sup R. Memory sup - Endurance Fair - Balance Fair - Safety Awareness Fair QI SCORES: - Self-Care A. Eating 04-Supervision or touching assistance B. Oral hygiene 04-Supervision or touching assistance C. Toileting hygiene 03-Partial/moderate assistance E. Shower/bathe self 02-Substantial/maximal assistance F. Upper body dressing 02-Substantial/maximal assistance G. Lower body dressing 01-Dependent H. Putting on/taking off footwear 01-Dependent - Mobility A. Roll left and right 03-Partial/moderate assistance B. Sit to lying 03-Partial/moderate assistance C. Lying to sitting on side of bed 03-Partial/moderate assistance D. Sit to stand 03-Partial/moderate assistance E. Chair/[id number] transfer 03-Partial/moderate assistance F. Toilet transfer 03-Partial/moderate assistance G. Car transfer 88-Not attempted due to medical condition or safety concerns I. Walk 10 feet 04-Supervision or touching assistance J. Walk 50 feet with two turns 04-Supervision or touching assistance K. Walk 150 feet 04-Supervision or touching assistance L. Walking 10 feet on uneven surfaces 88-Not attempted due to medical condition or safety concerns M. 1 step (curb) 88-Not attempted due to medical condition or safety concerns N. 4 steps 88-Not attempted due to medical condition or safety concerns O. 12 steps 88-Not attempted due to medical condition or safety concerns P. Picking up object 88-Not attempted due to medical condition or safety concerns - Endurance Poor - Balance Poor - Safety Awareness Poor CURRENT [facility]. DEFICITS: Self-Care, Mobility, Endurance, Balance, and Safety Awareness SIGNATURE PANEL: (CDT)
[2020-12-28] MEDS: GENTAMICIN 0.3% OPTH OINT 3.5GM EACH EYE SCH ×2 (08:00→19:20)
[2020-12-28] MEDS: REFRESH PLUS OPTH SCH ×2 (08:00→19:20)
[2020-12-28] MEDS: lisinopriL 20 MG TAB PO SCH (09:01)
[2020-12-28] MEDS: MONTELUKAST 10 MG TAB PO SCH (09:02)
[2020-12-28] MEDS: SERTRALINE HCL 50 MG TAB PO SCH (09:02)
[2020-12-28] MEDS: levETIRAcetam 500 MG TAB PO SCH ×2 (09:02→19:19)
[2020-12-28] MEDS: DOCUSATE NA 100 MG CAP PO SCH ×2 (09:02→19:19)
[2020-12-28] MEDS: FUROSEMIDE 20 MG TABLET PO SCH (09:03)
[2020-12-28] MEDS: MEMANTINE HCL 10 MG TABLET PO SCH ×2 (09:04→19:20)
[2020-12-28] MEDS: ENSURE ENLIVE 237 ML CAN PO SCH ×2 (09:04→19:20)
[2020-12-28] MEDS: ENOXAPARIN 40 MG/0.4 ML SQ SCH (16:26)
[2020-12-28] MEDS: REFRESH PM OPTH SCH (19:20)
[2020-12-28] MEDS: DONEPEZIL HCL 5 MG TAB PO SCH (19:20)
[2020-12-28] MEDS: CETIRIZINE HCL 5 MG TABLET PO SCH (19:20)
[2020-12-29] MEDS: BENZONATATE 100 MG CAP PO PRN ×2 (03:35→22:59)
[2020-12-29] MEDS: REFRESH PLUS OPTH SCH ×2 (08:30→20:00)
[2020-12-29] MEDS: GENTAMICIN 0.3% OPTH OINT 3.5GM EACH EYE SCH ×2 (08:40→20:00)
[2020-12-29] MEDS: MONTELUKAST 10 MG TAB PO SCH (08:40)
[2020-12-29] MEDS: DOCUSATE NA 100 MG CAP PO SCH ×2 (08:40→20:30)
[2020-12-29] MEDS: levETIRAcetam 500 MG TAB PO SCH ×2 (08:40→20:30)
[2020-12-29] MEDS: lisinopriL 20 MG TAB PO SCH (08:40)
[2020-12-29] MEDS: FUROSEMIDE 20 MG TABLET PO SCH (08:41)
[2020-12-29] MEDS: SERTRALINE HCL 50 MG TAB PO SCH (08:41)
[2020-12-29] MEDS: MEMANTINE HCL 10 MG TABLET PO SCH ×2 (08:41→20:30)
[2020-12-29] MEDS: ENSURE ENLIVE 237 ML CAN PO SCH ×2 (08:42→20:31)
[2020-12-29] MEDS: ENOXAPARIN 40 MG/0.4 ML SQ SCH (16:18)
[2020-12-29] MEDS: CETIRIZINE HCL 5 MG TABLET PO SCH (20:30)
[2020-12-29] MEDS: DONEPEZIL HCL 5 MG TAB PO SCH (20:30)
[2020-12-29] MEDS: REFRESH PM OPTH SCH (20:31)
[2020-12-30] MEDS: REFRESH PLUS OPTH SCH ×2 (06:45→19:30)
[2020-12-30] MEDS: GENTAMICIN 0.3% OPTH OINT 3.5GM EACH EYE SCH ×2 (06:46→19:30)
[2020-12-30] MEDS: lisinopriL 20 MG TAB PO SCH (07:37)
[2020-12-30] MEDS: MONTELUKAST 10 MG TAB PO SCH (07:37)
[2020-12-30] MEDS: DOCUSATE NA 100 MG CAP PO SCH ×2 (07:37→19:29)
[2020-12-30] MEDS: levETIRAcetam 500 MG TAB PO SCH ×2 (07:37→19:30)
[2020-12-30] MEDS: ENSURE ENLIVE 237 ML CAN PO SCH ×2 (07:38→19:30)
[2020-12-30] MEDS: SERTRALINE HCL 50 MG TAB PO SCH (07:38)
[2020-12-30] MEDS: MEMANTINE HCL 10 MG TABLET PO SCH ×2 (07:38→19:29)
[2020-12-30] MEDS: FUROSEMIDE 20 MG TABLET PO SCH (07:39)
[2020-12-30] MEDS: ENOXAPARIN 40 MG/0.4 ML SQ SCH (16:59)
--- NOTE | 2020-12-30 19:07 | R.PN ---
PROGRESS NOTES ENCOUNTER DATE AND TIME: 12/30/2020 19:03 (CDT) NAME JEN HICKEY DATE OF : 1935 DATE OF ADMISSION: 12/17/2020 17:59 (CDT) Traumatic subarachnoid hemm. with loss of consciousness frontal bilateral nasal fracturesCHIEF COMPLA INT: Stroke SUBJECTIVE: Pt denied any depression. Pt denied any Shortness of Breath. Ambulated 420' with contact guard assistance using a rolling walker. Labs were reviewed and are stable. UA is negative. WBC 675, Hgb 11.7, prealbumin 24.0, Salvage Inspector 0.77, UA normal. COVID-19 negative. Ambulated 120' with standby assistance using a rolling walker. Self propelled wheelchair 100' with s tandby assistance. VITAL SIGNS Temperature: 98.0 F 4SBP/DBP: 156/77 Pulse: 63 Resp: 14 MEDICATION ALLERGIES: No Known Drug Allergies (NKDA) ENVIRONMENTAL ALLERGIES: None Known - Substance Allergies None Known - Other Allergies None Known NURSING: - Shower allowing shower - Bladder care per protocol - Skin care per protocol PRECAUTIONS: - Weight Bearing Precaution WBAT left LE ACTIVITIES OOB only with supervision THERAPIES: - Occupational Therapy Cognitive Retraining. Visual Perceptual Training. - Dietary and Nutrition Adequate Nutrition. Nutritional Education. Nutritional Supplements. - Speech Therapy Cognitive Training. Expressive Language Skills. Memory Strategies. Receptive Language Skills. Speech Intelligibility Training. PHYSICAL EXAM - Gen Alert and awake Lying in bed No apparent distress Oriented to: person, time, and place - Vital Signs Vital signs stable, afebrile - Skin No breakdown Bruising noted on forehead and bridge of the nose. - Eyes No abnormalities - ENMT No abnormalities - Neck No abnormalities - CVS RRR - Chest No abnormalities - Resp Clear to auscultation - Abd + bowel sounds - GI Soft Deferred - No abnormalities - Ext No significant edema - MSK 4+/5 weakness in right upper and lower extremities - Neuro 4/5 strength right upper and lower extremities. - Psych No abnormalities ASSESSMENT: Pt. is a 85 yo Right-handed white female.On 12/12/[address] [facility] with sudde n onset of right-side weakness.On 12/12/2020 she [address] admitted to [facility] with diagnosis Tr aumatic subarachnoid hemm. with loss of consciousness .Her impairment category is Stroke 01 - Right Body (Left Brain) (01.2).Pre-morbidly, Pt. was independent/mod-I in Transfers Control, Locomotion, Se lf-Care, Social Cognition, Sphincter Control, and Communication; and she had good Balance and Safety Awareness.Currently, she has deficits of Transfers Control, Balance, Locomotion, Safety Awareness, Se lf-Care, and Social Cognition.Pt. is now referred to [facility] for acute in-p atient rehabilitation in order to maximize patient's functional independence in activities of daily l iving, strength, ROM, and mobility.- Rehab Goal Patient has realistic goal of being discharged at assistance level 6-Raudel to reside at Home with Gino ozuna. MDM/PLAN: - Physical Therapy Decreased range of motion - to improve, our physical therapists will perform initial evaluation of p t's status upon admission and devise an individualized program for increasing patient's Range of Srikanth on. Gait dysfunction - to improve, our physical therapists will perform initial evaluation of pt's statu s upon admission and devise an individualized program for Gait Training, and Wheel Chair mobility Inability to transfer - to improve, our physical therapists will perform initial evaluation of pt's status upon admission and devise an individualized program for Bed mobility Need for home safety evaluation - to improve, our physical therapists will perform initial evaluatio n of pt's status upon admission and devise an individualized program for Home Evaluation Need in caregiver upon discharge - to improve, our physical therapists will perform initial evaluati on of pt's status upon admission and devise an individualized program for Caregiver Training Edema - to improve, our physical therapists will perform initial evaluation of pt's status upon admi ssion and devise an individualized program for Elevation Training, and Lymphedema Therapy New precaution - to improve, our physical therapists will perform initial evaluation of pt's status upon admission and devise an individualized program for Patient precaution education Poor balance - to improve, our physical therapists will perform initial evaluation of pt's status up on admission and devise an individualized program for Balance Training Weakness - to improve, our physical therapists will perform initial evaluation of pt's status upon a dmission and devise an individualized program for Aquatic Therapy, Neuromuscular Reeducation, and Str engthening Achieving independence - to improve, our physical therapists will perform initial evaluation of pt's status upon admission and devise an individualized program for Community Reintegration Activities - Occupational Therapy ADL deficits - to improve, our occupation therapists will perform initial evaluation of pt's status upon admission and devise an individualized program for Bathing, Bed mobility, Community Reintegratio n, Cooking, Dressing, Eating, Fine Motor Skills, Grooming, Homemaking, Kitchen Mobility, Laundry, Pat ient Education, Safety Awareness, Splinting - Positioning, Transfers(Toilet, Tub, Shower), and Wheel Chair Management Cognitive deficits - to improve, our occupation therapists will perform initial evaluation of pt's s tatus upon admission and devise an individualized program for Cognition - orientation Need for care services manager - to improve, our occupation therapists will perform initial evaluation of pt's status upon admission and devise an individualized program for Caregiver Training Weakness - to improve, our occupation therapists will perform initial evaluation of pt's status upon admission and devise an individualized program for Aquatic Therapy, Balance, Endurance, UE ROM, and UE strengthening - Other See attached MAR (Medication Administration Record) - Diet Type Continue Regular - Diet - Liquid Texture Continue Regular - Tube Feed Continue N/A - Bladder care per protocol - Weight Bearing Precaution WBAT right LE - Skin care per protocol - Diet - Solid Texture Continue Regular - Shower allowing shower for Dementia, TBI, Stroke, or others FUNCTIONAL STATUS: UPDATED AT WEEKLY TEAM CONFERENCE - Walking Same score based on distance walked: 3(>=150ft) FUNCTIONAL STATUS: - Self-Care A. Eating Raudel B. Grooming sup C. Bathing Maria G D. Dressing - Upper sup E. Dressing - Lower Maria G F. Toileting Maria G - Sphincter Control G. Bladder control Raudel H. Bowel control Raudel - Transfers Control I. Bed/Chair/Wheelchair Maria G J. Toilet Maria G K. Tub/Shower modA - Locomotion L. Walk/Wheelchair (B) Maria G M. Stairs ADNO - Communication N. Comprehension (B) sup O. Expression (B) Raudel - Social Cognition P. Social Interaction Rauedl Q. Problem Solving sup R. Memory sup - Endurance Fair - Balance Fair - Safety Awareness Fair QI SCORES: - Self-Care A. Eating 04-Supervision or touching assistance B. Oral hygiene 04-Supervision or touching assistance C. Toileting hygiene 03-Partial/moderate assistance E. Shower/bathe self 02-Substantial/maximal assistance F. Upper body dressing 02-Substantial/maximal assistance G. Lower body dressing 01-Dependent H. Putting on/taking off footwear 01-Dependent - Mobility A. Roll left and right 03-Partial/moderate assistance B. Sit to lying 03-Partial/moderate assistance C. Lying to sitting on side of bed 03-Partial/moderate assistance D. Sit to stand 03-Partial/moderate assistance E. Chair/pgy-dn-[id number] transfer 03-Partial/moderate assistance F. Toilet transfer 03-Partial/moderate assistance G. Car transfer 88-Not attempted due to medical condition or safety concerns I. Walk 10 feet 04-Supervision or touching assistance J. Walk 50 feet with two turns 04-Supervision or touching assistance K. Walk 150 feet 04-Supervision or touching assistance L. Walking 10 feet on uneven surfaces 88-Not attempted due to medical condition or safety concerns M. 1 step (curb) 88-Not attempted due to medical condition or safety concerns N. 4 steps 88-Not attempted due to medical condition or safety concerns O. 12 steps 88-Not attempted due to medical condition or safety concerns P. Picking up object 88-Not attempted due to medical condition or safety concerns - Endurance Poor - Balance Poor - Safety Awareness Poor CURRENT FUNC. DEFICITS: Self-Care, Mobility, Endurance, Balance, and Safety Awareness SIGNATURE PANEL: (CDT)
[2020-12-30] MEDS: CETIRIZINE HCL 5 MG TABLET PO SCH (19:29)
[2020-12-30] MEDS: REFRESH PM OPTH SCH (19:30)
[2020-12-30] MEDS: DONEPEZIL HCL 5 MG TAB PO SCH (19:30)
[2020-12-31] MEDS: REFRESH PLUS OPTH SCH ×2 (06:48→20:00)
[2020-12-31] MEDS: GENTAMICIN 0.3% OPTH OINT 3.5GM EACH EYE SCH ×2 (06:48→20:00)
[2020-12-31] MEDS: lisinopriL 20 MG TAB PO SCH (07:47)
[2020-12-31] MEDS: MEMANTINE HCL 10 MG TABLET PO SCH ×2 (07:48→20:00)
[2020-12-31] MEDS: MONTELUKAST 10 MG TAB PO SCH (07:48)
[2020-12-31] MEDS: DOCUSATE NA 100 MG CAP PO SCH ×2 (07:48→20:00)
[2020-12-31] MEDS: SERTRALINE HCL 50 MG TAB PO SCH (07:48)
[2020-12-31] MEDS: ENSURE ENLIVE 237 ML CAN PO SCH ×2 (07:48→20:00)
[2020-12-31] MEDS: levETIRAcetam 500 MG TAB PO SCH ×2 (07:48→20:00)
[2020-12-31] MEDS: FUROSEMIDE 20 MG TABLET PO SCH (07:48)
[2020-12-31] MEDS: BENZONATATE 100 MG CAP PO PRN (13:44)
[2020-12-31] MEDS: ENOXAPARIN 40 MG/0.4 ML SQ SCH (17:03)
--- NOTE | 2020-12-31 18:11 | R.PN ---
PROGRESS NOTES ENCOUNTER DATE AND TIME: 12/31/2020 18:08 (CDT) NAME JNE HICKEY DATE OF : 1935 DATE OF ADMISSION: 12/17/2020 17:59 (CDT) Traumatic subarachnoid hemm. with loss of consciousness frontal bilateral nasal fracturesCHIEF COMPLA INT: Stroke SUBJECTIVE: Pt denied any depression. Pt denied any Shortness of Breath. Ambulated 420' with contact guard assistance using a rolling walker. Labs were reviewed and are stable. UA is negative. WBC 675, Hgb 11.7, prealbumin 24.0, Health Evaluator 0.77, UA normal. COVID-19 negative. Ambulated 105' with standby assistance using a rolling walker. Self propelled wheelchair 250' with s tandby assistance. VITAL SIGNS Temperature: 97.4 F 4SBP/DBP: 166/81 Pulse: 60 Resp: 14 MEDICATION ALLERGIES: No Known Drug Allergies (NKDA) ENVIRONMENTAL ALLERGIES: None Known - Substance Allergies None Known - Other Allergies None Known NURSING: - Shower allowing shower - Bladder care per protocol - Skin care per protocol PRECAUTIONS: - Weight Bearing Precaution WBAT left LE ACTIVITIES OOB only with supervision THERAPIES: - Occupational Therapy Cognitive Retraining. Visual Perceptual Training. - Dietary and Nutrition Adequate Nutrition. Nutritional Education. Nutritional Supplements. - Speech Therapy Cognitive Training. Expressive Language Skills. Memory Strategies. Receptive Language Skills. Speech Intelligibility Training. PHYSICAL EXAM - Gen Alert and awake Lying in bed No apparent distress Oriented to: person, time, and place - Vital Signs Vital signs stable, afebrile - Skin No breakdown Bruising noted on forehead and bridge of the nose. - Eyes No abnormalities - ENMT No abnormalities - Neck No abnormalities - CVS RRR - Chest No abnormalities - Resp Clear to auscultation - Abd + bowel sounds - GI Soft Deferred - No abnormalities - Ext No significant edema - MSK 4+/5 weakness in right upper and lower extremities - Neuro 4/5 strength right upper and lower extremities. - Psych No abnormalities ASSESSMENT: Pt. is a 85 yo Right-handed white female.On 12/12/2020 Pt. presented to [facility] with sudde n onset of right-side weakness.On 12/12/2020 she was admitted to [facility] with diagnosis Tr aumatic subarachnoid hemm. with loss of consciousness .Her impairment category is Stroke 01 - Right Body (Left Brain) (01.2).Pre-morbidly, Pt. was independent/mod-I in Transfers Control, Locomotion, Se lf-Care, Social Cognition, Sphincter Control, and Communication; and she had good Balance and Safety Awareness.Currently, she has deficits of Transfers Control, Balance, Locomotion, Safety Awareness, Se lf-Care, and Social Cognition.Pt. is now referred to [facility] for acute in-p atient rehabilitation in order to maximize patient's functional independence in activities of daily l iving, strength, ROM, and mobility.- Rehab Goal Patient has realistic goal of being discharged at assistance level 6-Raudel to reside at Home with Gino ozuna. MDM/PLAN: - Physical Therapy Decreased range of motion - to improve, our physical therapists will perform initial evaluation of p t's status upon admission and devise an individualized program for increasing patient's Range of Srikanth on. Gait dysfunction - to improve, our physical therapists will perform initial evaluation of pt's statu s upon admission and devise an individualized program for Gait Training, and Wheel Chair mobility Inability to transfer - to improve, our physical therapists will perform initial evaluation of pt's status upon admission and devise an individualized program for Bed mobility Need for home safety evaluation - to improve, our physical therapists will perform initial evaluatio n of pt's status upon admission and devise an individualized program for Home Evaluation Need in caregiver upon discharge - to improve, our physical therapists will perform initial evaluati on of pt's status upon admission and devise an individualized program for Caregiver Training Edema - to improve, our physical therapists will perform initial evaluation of pt's status upon admi ssion and devise an individualized program for Elevation Training, and Lymphedema Therapy New precaution - to improve, our physical therapists will perform initial evaluation of pt's status upon admission and devise an individualized program for Patient precaution education Poor balance - to improve, our physical therapists will perform initial evaluation of pt's status up on admission and devise an individualized program for Balance Training Weakness - to improve, our physical therapists will perform initial evaluation of pt's status upon a dmission and devise an individualized program for Aquatic Therapy, Neuromuscular Reeducation, and Str engthening Achieving independence - to improve, our physical therapists will perform initial evaluation of pt's status upon admission and devise an individualized program for Community Reintegration Activities - Occupational Therapy ADL deficits - to improve, our occupation therapists will perform initial evaluation of pt's status upon admission and devise an individualized program for Bathing, Bed mobility, Community Reintegratio n, Cooking, Dressing, Eating, Fine Motor Skills, Grooming, Homemaking, Kitchen Mobility, Laundry, Pat ient Education, Safety Awareness, Splinting - Positioning, Transfers(Toilet, Tub, Shower), and Wheel Chair Management Cognitive deficits - to improve, our occupation therapists will perform initial evaluation of pt's s tatus upon admission and devise an individualized program for Cognition - orientation Need for ambulatory care coordinator - to improve, our occupation therapists will perform initial evaluation of pt's status upon admission and devise an individualized program for Caregiver Training Weakness - to improve, our occupation therapists will perform initial evaluation of pt's status upon admission and devise an individualized program for Aquatic Therapy, Balance, Endurance, UE ROM, and UE strengthening - Other See attached MAR (Medication Administration Record) - Diet Type Continue Regular - Diet - Liquid Texture Continue Regular - Tube Feed Continue N/A - Bladder care per protocol - Weight Bearing Precaution WBAT right LE - Skin care per protocol - Diet - Solid Texture Continue Regular - Shower allowing shower for Dementia, TBI, Stroke, or others FUNCTIONAL STATUS: UPDATED AT WEEKLY TEAM CONFERENCE - Walking Same score based on distance walked: 3(>=150ft) FUNCTIONAL STATUS: - Self-Care A. Eating Raudel B. Grooming sup C. Bathing Maria G D. Dressing - Upper sup E. Dressing - Lower Maria G F. Toileting Maria G - Sphincter Control G. Bladder control Raudel H. Bowel control Raudel - Transfers Control I. Bed/Chair/Wheelchair Maria G J. Toilet aMria G K. Tub/Shower modA - Locomotion L. Walk/Wheelchair (B) Maria G M. Stairs ADNO - Communication N. Comprehension (B) sup O. Expression (B) Raudel - Social Cognition P. Social Interaction Raudel Q. Problem Solving sup R. Memory sup - Endurance Fair - Balance Fair - Safety Awareness Fair QI SCORES: - Self-Care A. Eating 04-Supervision or touching assistance B. Oral hygiene 04-Supervision or touching assistance C. Toileting hygiene 03-Partial/moderate assistance E. Shower/bathe self 02-Substantial/maximal assistance F. Upper body dressing 02-Substantial/maximal assistance G. Lower body dressing 01-Dependent H. Putting on/taking off footwear 01-Dependent - Mobility A. Roll left and right 03-Partial/moderate assistance B. Sit to lying 03-Partial/moderate assistance C. Lying to sitting on side of bed 03-Partial/moderate assistance D. Sit to stand 03-Partial/moderate assistance E. Chair/dfu-dv-zvedz transfer 03-Partial/moderate assistance F. Toilet transfer 03-Partial/moderate assistance G. Car transfer 88-Not attempted due to medical condition or safety concerns I. Walk 10 feet 04-Supervision or touching assistance J. Walk 50 feet with two turns 04-Supervision or touching assistance K. Walk 150 feet 04-Supervision or touching assistance L. Walking 10 feet on uneven surfaces 88-Not attempted due to medical condition or safety concerns M. 1 step (curb) 88-Not attempted due to medical condition or safety concerns N. 4 steps 88-Not attempted due to medical condition or safety concerns O. 12 steps 88-Not attempted due to medical condition or safety concerns P. Picking up object 88-Not attempted due to medical condition or safety concerns - Endurance Poor - Balance Poor - Safety Awareness Poor CURRENT FUNC. DEFICITS: Self-Care, Mobility, Endurance, Balance, and Safety Awareness SIGNATURE PANEL: (CDT)
[2020-12-31 20:39] LABS: Absolute Lymphocytes (CBC) 1.5 K/uL (0.7-4.9); Basophils % 0.8 % (0-1.3); Hematocrit 36.3 % (36.0-45.0); Lymphocytes % 25.5 % (15.3-44.8); MPV 8.9 fL (7.6-11.3); RBC Red Blood Cell Count 4.15 M/uL (3.86-4.86)
[2020-12-31] MEDS: CETIRIZINE HCL 5 MG TABLET PO SCH (20:56)
[2020-12-31] MEDS: REFRESH PM OPTH SCH (20:56)
[2020-12-31] MEDS: DONEPEZIL HCL 5 MG TAB PO SCH (20:56)
[2020-12-31 21:06] LABS: Albumin 3.7 g/dL (3.4-5.0); Magnesium 2.3 mg/dL (1.8-2.4); Prealbumin 20.8 mg/dL (20-40)
[2021-01-01] MEDS: lisinopriL 20 MG TAB PO SCH (06:53)
[2021-01-01] MEDS: ENSURE ENLIVE 237 ML CAN PO SCH ×2 (08:00→20:29)
[2021-01-01] MEDS: GENTAMICIN 0.3% OPTH OINT 3.5GM EACH EYE SCH ×2 (08:00→20:00)
[2021-01-01] MEDS: REFRESH PLUS OPTH SCH ×2 (08:00→20:00)
[2021-01-01] MEDS: MONTELUKAST 10 MG TAB PO SCH (08:19)
[2021-01-01] MEDS: DOCUSATE NA 100 MG CAP PO SCH ×2 (08:19→20:29)
[2021-01-01] MEDS: levETIRAcetam 500 MG TAB PO SCH ×2 (08:19→20:29)
[2021-01-01] MEDS: FUROSEMIDE 20 MG TABLET PO SCH (08:20)
[2021-01-01] MEDS: SERTRALINE HCL 50 MG TAB PO SCH (08:20)
[2021-01-01] MEDS: MEMANTINE HCL 10 MG TABLET PO SCH ×2 (08:20→20:30)
--- NOTE | 2021-01-01 09:32 | P.RH.PN ---
Estimated Length of Stay: 22 Expected Discharge Date: 01/07/21 Discharge Disposition Plan: Home Family Support: Yes [facility] Goal: Mobility, Transfers, Self Care Vital Signs: Last Vital Signs Temp 98.1 F 01/01/21 07:06 Pulse 66 01/01/21 08:20 Resp 16 01/01/21 07:06 BP 192/84 H 01/01/21 08:20 Pulse Ox 100 01/01/21 07:06 Laboratory: Laboratory Last Values WBC 6.10 K/uL (4.3-10.9) 12/31/20 20:05 RBC 4.15 M/uL (3.86-4.86) 12/31/20 20:05 Hgb 12.3 g/dL (12.0-15.0) 12/31/20 20:05 Hct 36.3 % (36.0-45.0) 12/31/20 20:05 MCV 87.6 fL (80-100) 12/31/20 20:05 MCH 29.6 pg (27.0-35.0) 12/31/20 20:05 MCHC 33.9 g/dL (32.0-36.0) 12/31/20 20:05 RDW 13.4 % (12.1-15.2) 12/31/20 20:05 Plt Count 276 K/uL (152-406) D 12/31/20 20:05 MPV 8.9 fL (7.6-11.3) 12/31/20 20:05 Neutrophils % 59.6 % (41.7-73.7) 12/31/20 20:05 Lymphocytes % 25.5 % (15.3-44.8) 12/31/20 20:05 Monocytes % 12.2 % (3.3-12.3) 12/31/20 20:05 Eosinophils % 1.9 % (0-4.4) 12/31/20 20:05 Basophils % 0.8 % (0-1.3) 12/31/20 20:05 Absolute Neutrophils 3.6 K/uL (1.8-8.0) 12/31/20 20:05 Absolute Lymphocytes 1.5 K/uL (0.7-4.9) 12/31/20 20:05 Absolute Monocytes 0.7 K/uL (0.1-1.3) 12/31/20 20:05 Absolute Eosinophils 0.1 K/uL (0-0.5) 12/31/20 20:05 Absolute Basophils 0.0 K/uL (0-0.5) 12/31/20 20:05 Sodium 134 mmol/L (136-145) L 12/31/20 20:05 Potassium 4.0 mmol/L (3.5-5.1) 12/31/20 20:05 Chloride 95 mmol/L (98-107) L 12/31/20 20:05 Carbon Dioxide 32 mmol/L (21-32) 12/31/20 20:05 BUN 28 mg/dL (7-18) H 12/31/20 20:05 Creatinine 0.79 mg/dL (0.55-1.3) 12/31/20 20:05 Estimated GFR 69 mL/min (=/>90) L 12/31/20 20:05 Glucose 127 mg/dL (74-106) H 12/31/20 20:05 Calcium 9.4 mg/dL (8.5-10.1) 12/31/20 20:05 Magnesium 2.3 mg/dL (1.8-2.4) 12/31/20 20:05 Albumin 3.7 g/dL (3.4-5.0) 12/31/20 20:05 Prealbumin 20.8 mg/dL (20-40) 12/31/20 20:05 Urine Color Yellow (Yellow) 12/18/20 14:45 Urine Appearance Clear (Clear) 12/18/20 14:45 Urine pH 5.5 (5.0-7.0) 12/18/20 14:45 Ur Specific [place] 1.010 (1.005-1.030) 12/18/20 14:45 Glucose (UA)(Auto) Negative (Negative) 12/18/20 14:45 Urine Ketones Negative (Negative) 12/18/20 14:45 Urine Blood Negative (Negative) 12/18/20 14:45 Urine Nitrite Negative (Negative) 12/18/20 14:45 Urine Bilirubin Negative (Negataive) 12/18/20 14:45 Urine Urobilinogen 0.2 mg/dL (0.2-1.0) 12/18/20 14:45 Ur Leukocyte Esterase Negative (Negative) 12/18/20 14:45 Urine RBC <5 /HPF (NONE SEEN) 12/18/20 14:45 Urine WBC <5 /HPF (<5) 12/18/20 14:45 Ur Squamous Epith Cells <5 /HPF (NONE SEEN) 12/18/20 14:45 Urine Bacteria <20 /HPF (<20) 12/18/20 14:45 Urine Culture Reflexed Not needed 12/18/20 14:45 Urine Total Protein Negative (Negative) 12/18/20 14:45 SARS-CoV-2 RNA (RT-PCR) Negative (NEGATIVE) 12/30/20 06:35 Weight: 123 lb 3.2 oz Wound Present: No Closed Surgical Incision Present: No Negative Pressure Wound Therapy Present: No Physician Update: Labs reviewed and are stable. She is making good progress with physical and occupational therapy. She is walking 100' at a time with standby assistance. She is a standby assistance with verbal ques needed. Her pain is well-controlelled. She has no complaints. Functional Improvement: Patient currently completing stairs w/ Min A at 5 steps, and gait tx. w/ SBA w/ RW at 230 ft. Patient presents w/ good attitude toward therapy, however does show slight memory/cognition issues. 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 Please see the Rehabilitation Signature page for all necessary signatures.
[2021-01-01] MEDS: ENOXAPARIN 40 MG/0.4 ML SQ SCH (16:28)
[2021-01-01] MEDS: CETIRIZINE HCL 5 MG TABLET PO SCH (20:30)
[2021-01-01] MEDS: DONEPEZIL HCL 5 MG TAB PO SCH (20:30)
[2021-01-01] MEDS: REFRESH PM OPTH SCH (20:31)
[2021-01-02] MEDS: REFRESH PLUS OPTH SCH ×2 (06:36→19:46)
[2021-01-02] MEDS: GENTAMICIN 0.3% OPTH OINT 3.5GM EACH EYE SCH ×2 (06:36→19:46)
[2021-01-02] MEDS: DOCUSATE NA 100 MG CAP PO SCH ×2 (07:42→19:46)
[2021-01-02] MEDS: levETIRAcetam 500 MG TAB PO SCH ×2 (07:42→19:46)
[2021-01-02] MEDS: SERTRALINE HCL 50 MG TAB PO SCH (07:42)
[2021-01-02] MEDS: ENSURE ENLIVE 237 ML CAN PO SCH ×2 (07:43→19:46)
[2021-01-02] MEDS: MEMANTINE HCL 10 MG TABLET PO SCH ×2 (07:43→19:46)
[2021-01-02] MEDS: MONTELUKAST 10 MG TAB PO SCH (07:43)
[2021-01-02] MEDS: lisinopriL 20 MG TAB PO SCH (07:43)
[2021-01-02] MEDS: FUROSEMIDE 20 MG TABLET PO SCH (07:43)
[2021-01-02] MEDS: BENZONATATE 100 MG CAP PO PRN (08:07)
[2021-01-02] MEDS: ENOXAPARIN 40 MG/0.4 ML SQ SCH (16:52)
[2021-01-02] MEDS: DONEPEZIL HCL 5 MG TAB PO SCH (19:46)
[2021-01-02] MEDS: CETIRIZINE HCL 5 MG TABLET PO SCH (19:46)
[2021-01-02] MEDS: REFRESH PM OPTH SCH (19:47)
[2021-01-03] MEDS: REFRESH PLUS OPTH SCH ×2 (07:26→20:00)
[2021-01-03] MEDS: GENTAMICIN 0.3% OPTH OINT 3.5GM EACH EYE SCH ×2 (07:27→20:26)
[2021-01-03] MEDS: BENZONATATE 100 MG CAP PO PRN (07:46)
[2021-01-03] MEDS: MEMANTINE HCL 10 MG TABLET PO SCH ×2 (07:47→20:23)
[2021-01-03] MEDS: lisinopriL 20 MG TAB PO SCH (07:47)
[2021-01-03] MEDS: MONTELUKAST 10 MG TAB PO SCH (07:48)
[2021-01-03] MEDS: levETIRAcetam 500 MG TAB PO SCH ×2 (07:48→20:23)
[2021-01-03] MEDS: ENSURE ENLIVE 237 ML CAN PO SCH ×2 (07:49→20:24)
[2021-01-03] MEDS: DOCUSATE NA 100 MG CAP PO SCH ×2 (07:49→20:23)
[2021-01-03] MEDS: FUROSEMIDE 20 MG TABLET PO SCH (07:49)
[2021-01-03] MEDS: SERTRALINE HCL 50 MG TAB PO SCH (07:49)
[2021-01-03] MEDS: ENOXAPARIN 40 MG/0.4 ML SQ SCH (16:57)
[2021-01-03] MEDS: CETIRIZINE HCL 5 MG TABLET PO SCH (20:23)
[2021-01-03] MEDS: REFRESH PM OPTH SCH (20:25)
[2021-01-03] MEDS: DONEPEZIL HCL 5 MG TAB PO SCH (20:26)
[2021-01-04] MEDS: GENTAMICIN 0.3% OPTH OINT 3.5GM EACH EYE SCH ×2 (08:00→20:23)
[2021-01-04] MEDS: REFRESH PLUS OPTH SCH ×2 (08:00→20:00)
[2021-01-04] MEDS: DOCUSATE NA 100 MG CAP PO SCH ×2 (08:34→20:22)
[2021-01-04] MEDS: FUROSEMIDE 20 MG TABLET PO SCH (08:34)
[2021-01-04] MEDS: MEMANTINE HCL 10 MG TABLET PO SCH ×2 (08:35→20:24)
[2021-01-04] MEDS: lisinopriL 20 MG TAB PO SCH (08:35)
[2021-01-04] MEDS: MONTELUKAST 10 MG TAB PO SCH (08:35)
[2021-01-04] MEDS: levETIRAcetam 500 MG TAB PO SCH ×2 (08:35→20:23)
[2021-01-04] MEDS: ENSURE ENLIVE 237 ML CAN PO SCH ×2 (08:38→20:22)
[2021-01-04] MEDS: SERTRALINE HCL 50 MG TAB PO SCH (08:38)
[2021-01-04] MEDS: ENOXAPARIN 40 MG/0.4 ML SQ SCH (16:41)
[2021-01-04] MEDS: CETIRIZINE HCL 5 MG TABLET PO SCH (20:24)
[2021-01-04] MEDS: REFRESH PM OPTH SCH (20:24)
[2021-01-04] MEDS: DONEPEZIL HCL 5 MG TAB PO SCH (20:24)
[2021-01-05] MEDS: REFRESH PLUS OPTH SCH ×2 (08:00→19:01)
[2021-01-05] MEDS: GENTAMICIN 0.3% OPTH OINT 3.5GM EACH EYE SCH ×2 (08:00→19:01)
[2021-01-05] MEDS: MONTELUKAST 10 MG TAB PO SCH (08:22)
[2021-01-05] MEDS: lisinopriL 20 MG TAB PO SCH (08:22)
[2021-01-05] MEDS: levETIRAcetam 500 MG TAB PO SCH ×2 (08:23→19:01)
[2021-01-05] MEDS: SERTRALINE HCL 50 MG TAB PO SCH (08:23)
[2021-01-05] MEDS: DOCUSATE NA 100 MG CAP PO SCH ×2 (08:23→19:01)
[2021-01-05] MEDS: FUROSEMIDE 20 MG TABLET PO SCH (08:23)
[2021-01-05] MEDS: MEMANTINE HCL 10 MG TABLET PO SCH ×2 (08:23→19:01)
[2021-01-05] MEDS: ENSURE ENLIVE 237 ML CAN PO SCH ×2 (08:28→19:01)
[2021-01-05] MEDS: ENOXAPARIN 40 MG/0.4 ML SQ SCH (16:19)
[2021-01-05] MEDS: CETIRIZINE HCL 5 MG TABLET PO SCH (19:00)
[2021-01-05] MEDS: DONEPEZIL HCL 5 MG TAB PO SCH (19:01)
[2021-01-05] MEDS: REFRESH PM OPTH SCH (19:01)
[2021-01-06] MEDS: REFRESH PLUS OPTH SCH ×2 (07:14→20:00)
[2021-01-06] MEDS: GENTAMICIN 0.3% OPTH OINT 3.5GM EACH EYE SCH ×2 (07:14→20:00)
[2021-01-06] MEDS: SERTRALINE HCL 50 MG TAB PO SCH (07:57)
[2021-01-06] MEDS: DOCUSATE NA 100 MG CAP PO SCH ×2 (07:57→19:58)
[2021-01-06] MEDS: ENSURE ENLIVE 237 ML CAN PO SCH ×2 (07:57→19:58)
[2021-01-06] MEDS: levETIRAcetam 500 MG TAB PO SCH ×2 (07:57→19:59)
[2021-01-06] MEDS: MONTELUKAST 10 MG TAB PO SCH (07:57)
[2021-01-06] MEDS: lisinopriL 20 MG TAB PO SCH (07:57)
[2021-01-06] MEDS: MEMANTINE HCL 10 MG TABLET PO SCH ×2 (07:58→19:59)
[2021-01-06] MEDS: FUROSEMIDE 20 MG TABLET PO SCH (07:58)
--- NOTE | 2021-01-06 12:11 | FAST ---
[employer] FORM SHIFT START DATE/TIME: 01/06/2021 07:00 (CDT) SHIFT END DATE/TIME: 01/06/2021 19:00 (CDT) NAME JEN HICKEY DATE OF : 1935 DATE OF ADMISSION: 12/17/2020 17:59 (CDT) PHONE: AGE: 85 N# [id number] GENDER: Female ENCOUNTER PHYSICIAN: Dr. Eloy Blandon M.D. 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 - Orthopaedic Disorders 08 - Other Orthopaedic (08.9) frontal bilateral nasal fractures. EATING: EATING - STEP 1: Does the patient complete the activity by him/herself with no assistance (physical, verbal/nonverbal cueing, setup/clean-up)? No. EATING - STEP 2: Does the patient need only setup/clean-up assistance from one helper? Yes. 1. [id number] ADMISSION PERFORMANCE: Setup or clean-up assistance CODE: 05 ORAL HYGIENE: ORAL HYGIENE - STEP 1: Does the patient complete the activity by him/herself with no assistance (physical, verbal/nonverbal cueing, setup/clean-up)? No. ORAL HYGIENE - STEP 2: Does the patient need only setup/clean-up assistance from one helper? Yes. 1. [id number] ADMISSION PERFORMANCE: Setup or clean-up assistance CODE: 05 TOILETING HYGIENE: TOILETING HYGIENE - STEP 1: Does the patient complete the activity by him/herself with no assistance (physical, verbal/nonverbal cueing, setup/clean-up)? No. TOILETING HYGIENE - STEP 2: Does the patient need only setup/clean-up assistance from one helper? Yes. 1. [id number] ADMISSION PERFORMANCE: Setup or clean-up assistance CODE: 05 BATHING: Not assessed/no information CODE: - DRESSING - UPPER BODY: DRESSING - UPPER BODY - STEP 1: Does the patient complete the activity by him/herself with no assistance (physical, verbal/nonverbal cueing, setup/clean-up)? No. DRESSING - UPPER BODY - STEP 2: Does the patient need only setup/clean-up assistance from one helper? No. DRESSING - UPPER BODY - STEP 3: Does the patient need only verbal/nonverbal cueing or touching/steadying/contact guard assistance fro m one helper? Yes. 1. [id number] ADMISSION PERFORMANCE: Supervision or touching assistance CODE: 04 DRESSING - LOWER BODY: DRESSING - LOWER BODY - STEP 1: Does the patient complete the activity by him/herself with no assistance (physical, verbal/nonverbal cueing, setup/clean-up)? No. DRESSING - LOWER BODY - STEP 2: Does the patient need only setup/clean-up assistance from one helper? No. DRESSING - LOWER BODY - STEP 3: Does the patient need only verbal/nonverbal cueing or touching/steadying/contact guard assistance fro m one helper? No. DRESSING - LOWER BODY - STEP 4: Does the patient need physical assistance - for example lifting or trunk support from one helper - wi th the helper providing less than half of the effort? Yes. 1. [id number] ADMISSION PERFORMANCE: Partial/moderate assistance CODE: 03 PUTTING ON/TAKING OFF FOOTWEAR: FOOTWEAR - STEP 1: Does the patient complete the activity by him/herself with no assistance (physical, verbal/nonverbal cueing, setup/clean-up)? No. FOOTWEAR - STEP 2: Does the patient need only setup/clean-up assistance from one helper? No. FOOTWEAR - STEP 3: Does the patient need only verbal/nonverbal cueing or touching/steadying/contact guard assistance fro m one helper? No. FOOTWEAR - STEP 4: Does the patient need physical assistance - for example lifting or trunk support from one helper - wi th the helper providing less than half of the effort? No. FOOTWEAR - STEP 5: Does the patient need physical assistance - for example lifting or trunk support from one helper - wi th the helper providing more than half of the effort? Yes. 1. [id number] ADMISSION PERFORMANCE: Substantial/maximal assistance CODE: 02 ROLL LEFT AND RIGHT: ROLL LEFT AND RIGHT - STEP 1: Does the patient complete the activity by him/herself with no assistance (physical, verbal/nonverbal cueing, setup/clean-up)? No. ROLL LEFT AND RIGHT - STEP 2: Does the patient need only setup/clean-up assistance from one helper? No. ROLL LEFT AND RIGHT - STEP 3: Does the patient need only verbal/nonverbal cueing or touching/steadying/contact guard assistance fro m one helper? Yes. 1. [id number] ADMISSION PERFORMANCE: Supervision or touching assistance CODE: 04 SIT TO LYING: SIT TO LYING - STEP 1: Does the patient complete the activity by him/herself with no assistance (physical, verbal/nonverbal cueing, setup/clean-up)? No. SIT TO LYING - STEP 2: Does the patient need only setup/clean-up assistance from one helper? Yes. 1. [id number] ADMISSION PERFORMANCE: Setup or clean-up assistance CODE: 05 LYING TO SITTING: LYING TO SITTING ON SIDE OF BED - STEP 1: Does the patient complete the activity by him/herself with no assistance (physical, verbal/nonverbal cueing, setup/clean-up)? No. LYING TO SITTING ON SIDE OF BED - STEP 2: Does the patient need only setup/clean-up assistance from one helper? No. LYING TO SITTING ON SIDE OF BED - STEP 3: Does the patient need only verbal/nonverbal cueing or touching/steadying/contact guard assistance fro m one helper? Yes. 1. [id number] ADMISSION PERFORMANCE: Supervision or touching assistance CODE: 04 SIT TO STAND: SIT TO STAND - STEP 1: Does the patient complete the activity by him/herself with no assistance (physical, verbal/nonverbal cueing, setup/clean-up)? No. SIT TO STAND - STEP 2: Does the patient need only setup/clean-up assistance from one helper? No. SIT TO STAND - STEP 3: Does the patient need only verbal/nonverbal cueing or touching/steadying/contact guard assistance fro m one helper? Yes. 1. [id number] ADMISSION PERFORMANCE: Supervision or touching assistance CODE: 04 TRANSFERS: BED, CHAIR: CHAIR/[id number] TRANSFER - STEP 1: Does the patient complete the activity by him/herself with no assistance (physical, verbal/nonverbal cueing, setup/clean-up)? No. CHAIR/[id number] TRANSFER - STEP 2: Does the patient need only setup/clean-up assistance from one helper? No. CHAIR/FMW-PL-NSFLY TRANSFER - STEP 3: Does the patient need only verbal/nonverbal cueing or touching/steadying/contact guard assistance fro m one helper? Yes. 1. [id number] ADMISSION PERFORMANCE: Supervision or touching assistance CODE: 04 TRANSFER TOILET: TOILET TRANSFER - STEP 1: Does the patient complete the activity by him/herself with no assistance (physical, verbal/nonverbal cueing, setup/clean-up)? No. TOILET TRANSFER - STEP 2: Does the patient need only setup/clean-up assistance from one helper? No. TOILET TRANSFER - STEP 3: Does the patient need only verbal/nonverbal cueing or touching/steadying/contact guard assistance fro m one helper? Yes. 1. [id number] ADMISSION PERFORMANCE: Supervision or touching assistance CODE: 04 TRANSFERS: CAR: Not assessed/no information CODE: - WALK 10 FEET: Not assessed/no information CODE: - 1 STEP (CURB): Not assessed/no information CODE: - PICKING UP OBJECT: Not assessed/no information CODE: - DOES THE PATIENT USE A WHEELCHAIR/SCOOTER? Q1. DOES THE PATIENT USE A WHEELCHAIR/SCOOTER?: Yes CODE: 1 WHEEL 50 FEET WITH TWO TURNS: Not assessed/no information CODE: - INDICATE THE TYPE OF WHEELCHAIR/SCOOTER USED: RR1. INDICATE THE TYPE OF WHEELCHAIR/SCOOTER USED.: Manual CODE: 1 WHEEL 150 FEET: Not assessed/no information CODE: - INDICATE THE TYPE OF WHEELCHAIR/SCOOTER USED: SS1. INDICATE THE TYPE OF WHEELCHAIR/SCOOTER USED.: Manual CODE: 1 BLADDER AND BOWEL: H350. BLADDER CONTINENCE (3-DAY ASSESSMENT PERIOD): Stress incontinence only CODE: 1 H400. BOWEL CONTINENCE (3-DAY ASSESSMENT PERIOD): Always continent CODE: 0 SIGNATURE PANEL: The following modified sections: 1. [id number] Admission Performance, 1. [id number] Admission Performance, 1. LL8464N Admission Performance, 1. OV9661o Admission Performance, 1. XM1351r Admission Performance, 1. HL9128v Admission Performance, 1. DX6529v Admission Performance, 1. [id number] Admission Performance , 1. [id number] Admission Performance, 1. TB9157Y Admission Performance, 1. BQ3216H Admission Performanc e, 1. II4315R Admission Performance, 1. [id number] Admission Performance, Q1. Does the patient use a whe elchair/scooter?, RR1. Indicate the type of wheelchair/scooter used., Code, SS1. Indicate the type of wheelchair/scooter used., H350. Bladder Continence (3-day assessment period), H400. Bowel Continence (3-day assessment period) were [electronically] signed by Jessi Alexander C.N.A. on WedJan 06 2021 12 :10:15 GMT-0500 (Central Daylight Time)
[2021-01-06] MEDS: BENZONATATE 100 MG CAP PO PRN (13:04)
[2021-01-06] MEDS: ENOXAPARIN 40 MG/0.4 ML SQ SCH (16:41)
--- NOTE | 2021-01-06 17:05 | R.PN ---
PROGRESS NOTES ENCOUNTER DATE AND TIME: 01/06/2021 17:00 (CDT) NAME JEN HICKEY DATE OF : 1935 DATE OF ADMISSION: 12/17/2020 17:59 (CDT) Traumatic subarachnoid hemm. with loss of consciousness frontal bilateral nasal fracturesCHIEF COMPLA INT: Stroke SUBJECTIVE: Pt denied any depression. Pt denied any Shortness of Breath. Ambulated 450' with standby assistance using a rolling walker. Labs were reviewed and are stable. UA is negative. WBC 6.1, Hgb 12.3, prealbumin 20.8, [facility] Manager 0.77, UA normal. COVID-19 negative. Ambulated 105' with standby assistance using a rolling walker. Self propelled wheelchair 250' with s tandby assistance. VITAL SIGNS Temperature: 99.0 F 4SBP/DBP: 143/68 Pulse: 76 Resp: 16 MEDICATION ALLERGIES: No Known Drug Allergies (NKDA) ENVIRONMENTAL ALLERGIES: None Known - Substance Allergies None Known - Other Allergies None Known NURSING: - Shower allowing shower - Bladder care per protocol - Skin care per protocol PRECAUTIONS: - Weight Bearing Precaution WBAT left LE ACTIVITIES OOB only with supervision THERAPIES: - Occupational Therapy Cognitive Retraining. Visual Perceptual Training. - Dietary and Nutrition Adequate Nutrition. Nutritional Education. Nutritional Supplements. - Speech Therapy Cognitive Training. Expressive Language Skills. Memory Strategies. Receptive Language Skills. Speech Intelligibility Training. PHYSICAL EXAM - Gen Alert and awake Lying in bed No apparent distress Oriented to: person, time, and place - Vital Signs Vital signs stable, afebrile - Skin No breakdown Bruising noted on forehead and bridge of the nose. - Eyes No abnormalities - ENMT No abnormalities - Neck No abnormalities - CVS RRR - Chest No abnormalities - Resp Clear to auscultation - Abd + bowel sounds - GI Soft Deferred - No abnormalities - Ext No significant edema - MSK 4+/5 weakness in right upper and lower extremities - Neuro 4/5 strength right upper and lower extremities. - Psych No abnormalities ASSESSMENT: Pt. is a 85 yo Right-handed white female.On 12/12/2020 Pt. presented to [facility] with sudde n onset of right-side weakness.On 12/12/2020 she was admitted to [facility] with diagnosis Tr aumatic subarachnoid hemm. with loss of consciousness .Her impairment category is Stroke 01 - Right Body (Left Brain) (01.2).Pre-morbidly, Pt. was independent/mod-I in Transfers Control, Locomotion, Se lf-Care, Social Cognition, Sphincter Control, and Communication; and she had good Balance and Safety Awareness.Currently, she has deficits of Transfers Control, Balance, Locomotion, Safety Awareness, Se lf-Care, and Social Cognition.Pt. is now referred to [facility] for acute in-p atient rehabilitation in order to maximize patient's functional independence in activities of daily l iving, strength, ROM, and mobility.- Rehab Goal Patient has realistic goal of being discharged at assistance level 6-Raudel to reside at Home with Gino ozuna. MDM/PLAN: - Physical Therapy Decreased range of motion - to improve, our physical therapists will perform initial evaluation of p t's status upon admission and devise an individualized program for increasing patient's Range of Srikanth on. Gait dysfunction - to improve, our physical therapists will perform initial evaluation of pt's statu s upon admission and devise an individualized program for Gait Training, and Wheel Chair mobility Inability to transfer - to improve, our physical therapists will perform initial evaluation of pt's status upon admission and devise an individualized program for Bed mobility Need for home safety evaluation - to improve, our physical therapists will perform initial evaluatio n of pt's status upon admission and devise an individualized program for Home Evaluation Need in caregiver upon discharge - to improve, our physical therapists will perform initial evaluati on of pt's status upon admission and devise an individualized program for Caregiver Training Edema - to improve, our physical therapists will perform initial evaluation of pt's status upon admi ssion and devise an individualized program for Elevation Training, and Lymphedema Therapy New precaution - to improve, our physical therapists will perform initial evaluation of pt's status upon admission and devise an individualized program for Patient precaution education Poor balance - to improve, our physical therapists will perform initial evaluation of pt's status up on admission and devise an individualized program for Balance Training Weakness - to improve, our physical therapists will perform initial evaluation of pt's status upon a dmission and devise an individualized program for Aquatic Therapy, Neuromuscular Reeducation, and Str engthening Achieving independence - to improve, our physical therapists will perform initial evaluation of pt's status upon admission and devise an individualized program for Community Reintegration Activities - Occupational Therapy ADL deficits - to improve, our occupation therapists will perform initial evaluation of pt's status upon admission and devise an individualized program for Bathing, Bed mobility, Community Reintegratio n, Cooking, Dressing, Eating, Fine Motor Skills, Grooming, Homemaking, Kitchen Mobility, Laundry, Pat ient Education, Safety Awareness, Splinting - Positioning, Transfers(Toilet, Tub, Shower), and Wheel Chair Management Cognitive deficits - to improve, our occupation therapists will perform initial evaluation of pt's s tatus upon admission and devise an individualized program for Cognition - orientation Need for urgent care physician assistant - to improve, our occupation therapists will perform initial evaluation of pt's status upon admission and devise an individualized program for Caregiver Training Weakness - to improve, our occupation therapists will perform initial evaluation of pt's status upon admission and devise an individualized program for Aquatic Therapy, Balance, Endurance, UE ROM, and UE strengthening - Other See attached MAR (Medication Administration Record) - Diet Type Continue Regular - Diet - Liquid Texture Continue Regular - Tube Feed Continue N/A - Bladder care per protocol - Weight Bearing Precaution WBAT right LE - Skin care per protocol - Diet - Solid Texture Continue Regular - Shower allowing shower for Dementia, TBI, Stroke, or others FUNCTIONAL STATUS: UPDATED AT WEEKLY TEAM CONFERENCE - Walking Same score based on distance walked: 3(>=150ft) FUNCTIONAL STATUS: - Self-Care A. Eating Raudel B. Grooming sup C. Bathing Maria G D. Dressing - Upper sup E. Dressing - Lower Maria G F. Toileting Maria G - Sphincter Control G. Bladder control Raudel H. Bowel control Raudel - Transfers Control I. Bed/Chair/Wheelchair Maria G J. Toilet Maria G K. Tub/Shower modA - Locomotion L. Walk/Wheelchair (B) Maria G M. Stairs ADNO - Communication N. Comprehension (B) sup O. Expression (B) Raudel - Social Cognition P. Social Interaction Raudel Q. Problem Solving sup R. Memory sup - Endurance Fair - Balance Fair - Safety Awareness Fair QI SCORES: - Self-Care A. Eating 04-Supervision or touching assistance B. Oral hygiene 04-Supervision or touching assistance C. Toileting hygiene 03-Partial/moderate assistance E. Shower/bathe self 02-Substantial/maximal assistance F. Upper body dressing 02-Substantial/maximal assistance G. Lower body dressing 01-Dependent H. Putting on/taking off footwear 01-Dependent - Mobility A. Roll left and right 03-Partial/moderate assistance B. Sit to lying 03-Partial/moderate assistance C. Lying to sitting on side of bed 03-Partial/moderate assistance D. Sit to stand 03-Partial/moderate assistance E. Chair/[id number] transfer 03-Partial/moderate assistance F. Toilet transfer 03-Partial/moderate assistance G. Car transfer 88-Not attempted due to medical condition or safety concerns I. Walk 10 feet 04-Supervision or touching assistance J. Walk 50 feet with two turns 04-Supervision or touching assistance K. Walk 150 feet 04-Supervision or touching assistance L. Walking 10 feet on uneven surfaces 88-Not attempted due to medical condition or safety concerns M. 1 step (curb) 88-Not attempted due to medical condition or safety concerns N. 4 steps 88-Not attempted due to medical condition or safety concerns O. 12 steps 88-Not attempted due to medical condition or safety concerns P. Picking up object 88-Not attempted due to medical condition or safety concerns - Endurance Poor - Balance Poor - Safety Awareness Poor [facility]IC[facility]: Self-Care, Mobility, Endurance, Balance, and Safety Awareness SIGNATURE PANEL: (CDT)
[2021-01-06] MEDS: CETIRIZINE HCL 5 MG TABLET PO SCH (19:59)
[2021-01-06] MEDS: DONEPEZIL HCL 5 MG TAB PO SCH (19:59)
[2021-01-06] MEDS: REFRESH PM OPTH SCH (20:01)
[2021-01-07] MEDS: REFRESH PLUS OPTH SCH (07:12)
[2021-01-07] MEDS: GENTAMICIN 0.3% OPTH OINT 3.5GM EACH EYE SCH (07:12)
[2021-01-07] MEDS: BENZONATATE 100 MG CAP PO PRN (08:03)
[2021-01-07] MEDS: ENSURE ENLIVE 237 ML CAN PO SCH (08:03)
[2021-01-07] MEDS: levETIRAcetam 500 MG TAB PO SCH (08:04)
[2021-01-07] MEDS: DOCUSATE NA 100 MG CAP PO SCH (08:04)
[2021-01-07] MEDS: lisinopriL 20 MG TAB PO SCH (08:04)
[2021-01-07] MEDS: FUROSEMIDE 20 MG TABLET PO SCH (08:04)
[2021-01-07] MEDS: MEMANTINE HCL 10 MG TABLET PO SCH (08:04)
[2021-01-07] MEDS: MONTELUKAST 10 MG TAB PO SCH (08:04)
[2021-01-07] MEDS: SERTRALINE HCL 50 MG TAB PO SCH (08:04)
[2021-01-07 08:05] VITALS: BP 169/83
[2021-01-07 08:08] VITALS: TEMP 97.8
--- NOTE | 2021-01-17 19:12 | R.DS ---
DISCHARGE SUMMARY FACILITY [facility] MR# [id number] NAME JEN HICKEY ADDRESS [id number] [place] [address] PHONE DATE OF 1935 AGE 85 SSN# [id number] GENDER Female DEXTERITY Right-handed MARITAL STATUS RACE White ENCOUNTER PHYSICIAN Dr. Eloy Blandon M.D. 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 - Orthopaedic Disorders 08 - Other Orthopaedic (08.9) frontal bilateral nasal fractures. DATE OF ADMISSION 12/17/2020 17:59 (CDT) MEDICATION ALLERGIES: No Known Drug Allergies (NKDA) ENVIRONMENTAL ALLERGIES: None Known - Substance Allergies None Known - Other Allergies None Known DISCHARGE MEDICATIONS: Other- ContinueSee attached MAR (Medication Administration Record). NURSING: - Shower allowing shower - Bladder care per protocol - Skin care per protocol PRECAUTIONS: - Weight Bearing Precaution WBAT left LE ACTIVITIES OOB only with supervision THERAPIES: - Occupational Therapy Cognitive Retraining Visual Perceptual Training - Dietary and Nutrition Adequate Nutrition Nutritional Education Nutritional Supplements - Speech Therapy Cognitive Training Expressive Language Skills Memory Strategies Receptive Language Skills Speech Intelligibility Training HISTORY OF PRESENT ILLNESS: Pt. is a 85 yo Right-handed white female.On 12/12/2020 Pt. 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 was independent/mod-I in Transfers Control, Locomotion, Se lf-Care, Social Cognition, Sphincter Control, and Communication; and she had good Balance and Safety Awareness.Currently, she has deficits of Transfers Control, Balance, Locomotion, Safety Awareness, Se lf-Care, and Social Cognition.Pt. is now referred to [facility] for acute in-p atient rehabilitation in order to maximize patient's functional independence in activities of daily l iving, strength, ROM, and mobility.- Rehab Goal Patient has realistic goal of being discharged at assistance level 6-Raudel to reside at Home with Gino ozuna. HOSPITAL COURSE: DIET - LIQUID TEXTURE: On 12/17/2020 Pt was upgraded to Regular Diet - Liquid Texture. DIET - SOLID TEXTURE: On 12/17/2020 Pt was upgraded to Regular Diet - Solid Texture. DIET TYPE: On 12/17/2020 Pt was upgraded to Regular Diet Type. TUBE FEED: On 12/17/2020 Pt was changed to N/A Tube Feed. WEIGHT BEARING PRECAUTION: On 12/17/2020 the following precautions were added for the patient: Weight Bearing Precaution - WBAT left LE. On 12/18/2020 the following precautions were added for the patient: Weight Bearing Precaution - WBAT right LE. On 12/19/2020 the following precautions were removed for the patient: Weight Bearing Precaution - WB AT right LE. The following precautions were added for the patient: Weight Bearing Precaution - WBAT right LE. On 12/23/2020 the following precautions were removed for the patient: Weight Bearing Precaution - WBA T right LE. The following precautions were added for the patient: Weight Bearing Precaution - WBAT right LE. DISCHARGE PHYSICAL EXAM - Gen Alert and awake Lying in bed No apparent distress Oriented to: person, time, and place - Vital Signs Vital signs stable, afebrile - Skin No breakdown Bruising noted on forehead and bridge of the nose. - Eyes No abnormalities - ENMT No abnormalities - Neck No abnormalities - CVS RRR - Chest No abnormalities - Resp Clear to auscultation - Abd + bowel sounds - GI Soft Deferred - No abnormalities - Ext No significant edema - MSK 4+/5 weakness in right upper and lower extremities - Neuro 4/5 strength right upper and lower extremities. - Psych No abnormalities FUNCTIONAL STATUS: - Self-Care A. Eating 6-Raudel B. Grooming 5-sup C. Bathing 4-Maria G D. Dressing - Upper 5-sup E. Dressing - Lower 4-Maria G F. Toileting 4-Maria G - Sphincter Control G. Bladder control 6-Raudel H. Bowel control 6-Raudel - Transfers Control I. Bed/Chair/Wheelchair 4-Maria G J. Toilet 4-Maria G K. Tub/Shower 4-Maria G - Locomotion L. Walk/Wheelchair (B) 5-sup M. Stairs 5-sup - Communication N. Comprehension (B) 5-sup O. Expression (B) 6-Raudel - Social Cognition P. Social Interaction 6-Raudel Q. Problem Solving 5-sup R. Memory 5-sup - Endurance Fair - Balance Fair - Safety Awareness Fair QI SCORES: - Self-Care A. Eating 04-Supervision or touching assistance B. Oral hygiene 04-Supervision or touching assistance C. Toileting hygiene 03-Partial/moderate assistance E. Shower/bathe self 02-Substantial/maximal assistance F. Upper body dressing 02-Substantial/maximal assistance G. Lower body dressing 01-Dependent H. Putting on/taking off footwear 01-Dependent - Mobility A. Roll left and right 03-Partial/moderate assistance B. Sit to lying 03-Partial/moderate assistance C. Lying to sitting on side of bed 03-Partial/moderate assistance D. Sit to stand 03-Partial/moderate assistance E. Chair/[id number]-[id number] transfer 03-Partial/moderate assistance F. Toilet transfer 03-Partial/moderate assistance G. Car transfer 88-Not attempted due to medical condition or safety concerns I. Walk 10 feet 04-Supervision or touching assistance J. Walk 50 feet with two turns 04-Supervision or touching assistance K. Walk 150 feet 04-Supervision or touching assistance L. Walking 10 feet on uneven surfaces 88-Not attempted due to medical condition or safety concerns M. 1 step (curb) 88-Not attempted due to medical condition or safety concerns N. 4 steps 88-Not attempted due to medical condition or safety concerns O. 12 steps 88-Not attempted due to medical condition or safety concerns P. Picking up object 88-Not attempted due to medical condition or safety concerns - Endurance Poor - Balance Poor - Safety Awareness Poor DISCHARGE INSTRUCTIONS: - N/A Aspirin 81 mg daily. DISCHARGE PLAN, FOLLOW UP CARE PROVISIONS: - Estimated Length of Stay (days) 12. - Consensus on plan Discharge plan has been discussed with primary caregiver. Primary caregiver is in agreement with the plan. - Planned Living Setting Upon Discharge Primary caregiver: Daughter. SIGNATURE PANEL: (CDT)
== END 2021-01-07 15:35 | disposition home or self-care (01) | DRG 57 ==
LOC: 5TH 12-17 17:59
PROVIDERS: ADMIT Psychiatry & Neurology Neurology with Special Qualifications in Child Neurology; ATTEND Psychiatry & Neurology Neurology with Special Qualifications in Child Neurology
DX: I69.351 Hemiplegia and hemiparesis following cerebral infarction affecting right dominant side (principal); Z20.822 Contact with and (suspected) exposure to COVID-19
CPT/HCPCS: 36415; 71045; 80048; 80177; 81001; 82040; 83735; 84134; 85025; 87086; 87088; 92523; 97110; 97116; 97127; 97161; 97530; 97542; J1650; U0003